=== PATIENT | female | born 1990 | race Caucasian/White ===

== ENCOUNTER 2018-01-30 19:15 | Emergency (ER) | payer MEDICAID, OTHER ==
[2018-01-30] MEDS ORDERED: KETOROLAC 60 MG/2 ML VIAL IVP STA (19:52)
--- NOTE | 2018-01-30 19:53 | ED Physician Documentation ---
PD HPI CHEST PAIN - Stated complaint Stated Complaint: CHEST PX/NAVARRO - Chief complaint Chief Complaint: Cardiac - History obtained from History obtained from: Patient, Family - History of Present Illness Timing - onset: How many days ago (4) Timing - onset during: Rest Timing - duration: Days (4) Timing - details: Waxing and waning Pain level max: 8 Pain level now: 4 Quality: Sharp, Pain Location: Other (anterior chest) Radiation: Other (occasionally radiates to the back) Improved by: Rest Worsened by: Inspiration, Eating, Movement, Palpation Associated symptoms: No: Shortness of air, Diaphoresis, Nausea, Vomiting, Feeling faint / dizzy, General Weakness, Palpitations, Cough Similar symptoms before: Has not had sx before Recently seen: Not recently seen - Additional information Additional information: No recent travel. No surgery. No immobilization. No family history of blood clots or personal history of blood clots. Review of Systems Ten Systems: 10 systems reviewed and negative Constitutional: denies: Fever, Chills Eyes: denies: Decreased vision Ears: denies: Ear pain Nose: denies: Rhinorrhea / runny nose, Congestion Throat: denies: Sore throat Cardiac: denies: Palpitations, Calf pain Respiratory: denies: Cough GI: denies: Abdominal Pain, Nausea, Vomiting, Diarrhea : denies: Dysuria, Frequency, Hesitancy, Now EGA Skin: denies: Rash Musculoskeletal: denies: Neck pain, Back pain Neurologic: denies: Focal weakness, Numbness, Headache PD PAST MEDICAL HISTORY - Past Medical History Cardiovascular: Hypertension - Past Surgical History Past Surgical History: No - Present Medications Home Medications: Ambulatory Orders Medication Instructions Recorded Confirmed Famotidine [Pepcid] 20 mg PO BID #30 tablet 04/02/17 Hydrochlorothiazide 12.5 mg PO DAILY 04/02/17 04/02/17 Hydrocodone/Acetaminophen 1 - 2 each PO Q6H PRN #14 tablet 04/02/17 [Hydrocodon-Acetaminophen 5-325] Omeprazole [PriLOSEC] 20 mg PO DAILY #30 capsule 04/02/17 Sucralfate [Carafate] 1 gm PO ACHS #60 tablet 04/02/17 Famotidine [Pepcid] 20 mg PO BID #30 tablet 01/30/18 Omeprazole [PriLOSEC] 20 mg PO DAILY #30 capsule 01/30/18 - Allergies Allergies/Adverse Reactions: Allergies Allergy/AdvReac Type Severity Reaction Status Date / Time amoxicillin AdvReac Unknown Verified 01/30/18 19:23 - Social History Does the pt smoke?: No Smoking Status: Never smoker Does the pt drink ETOH?: No Does the pt have substance abuse?: No - Immunizations Immunizations are current?: Yes PD ED PE NORMAL - Vitals Vital signs reviewed: Yes - General General: Alert and oriented X 3, No acute distress, Well developed/nourished - HEENT HEENT: PERRL, Moist mucous membranes - Neck Neck: Supple, no meningeal sign - Cardiac Cardiac: RRR, Strong equal pulses - Respiratory Respiratory: No respiratory distress, Clear bilaterally, Other (Tender to palpation across the anterior chest wall, reproducing her pain.) - Abdomen Abdomen: Soft, Non tender, Non distended - Derm Derm: Warm and dry, No rash - Extremities Extremities: No edema, No calf tenderness / cord - Neuro Neuro: Alert and oriented X 3 - Psych Psych: Normal mood, Normal affect Results - Vitals Vitals: Vital Signs - 24 hr 01/30/18 01/30/18 01/30/18 19:21 19:48 21:29 Temperature 36.7 C Heart Rate 85 83 75 Respiratory 16 16 16 Rate Blood Pressure 161/116 H 143/99 H 123/107 H O2 Saturation 95 100 98 Oxygen O2 Source Room air - EKG (time done) 1922 Rate: Rate (enter#) (80) Rhythm: NSR [place]: Normal Intervals: Normal [place] QRS: Normal Ischemia: Normal ST segments Computer interpretation: Agree with computer - Labs Labs: Laboratory Tests 01/30/18 01/30/18 01/30/18 19:43 19:43 19:43 WBC 7.9 RBC 4.45 Hgb 13.3 Hct 38.4 MCV 86.2 MCH 29.9 MCHC 34.7 RDW 12.3 Plt Count 246 MPV 8.4 Neut # 5.3 Lymph # 2.0 [place] # 0.5 Eos # 0.1 Baso # 0.0 Absolute Nucleated RBC 0.00 Nucleated RBC % 0.0 D-Dimer < 200.0 L Sodium 135 Potassium 3.8 Chloride 103 Carbon Dioxide 24 Anion Gap 8.0 BUN 7 Creatinine 0.7 Estimated GFR (MDRD) 100 Glucose 95 Calcium 8.9 Total Bilirubin 0.4 AST 23 ALT 18 Alkaline Phosphatase 70 Troponin I Total Protein 7.4 Albumin 4.3 Globulin 3.1 Albumin/Globulin Ratio 1.4 Lipase 29 01/30/18 19:43 WBC RBC Hgb Hct MCV MCH MCHC RDW Plt Count MPV Neut # Lymph # [place] # Eos # Baso # Absolute Nucleated RBC Nucleated RBC % D-Dimer Sodium Potassium Chloride Carbon Dioxide Anion Gap BUN Creatinine Estimated GFR (MDRD) Glucose Calcium Total Bilirubin AST ALT Alkaline Phosphatase Troponin I < 0.04 Total Protein Albumin Globulin Albumin/Globulin Ratio Lipase - Rads (name of study) cxr Radiology: Prelim report reviewed, EMP read contemporaneously, See rad report ( normal) PD MEDICAL DECISION MAKING - ED course Complexity details: reviewed results, re-evaluated patient, considered differential (No ST elevation [place], no aortic dissection, no PE, no tension pneumothorax, no aortic aneurysm), d/w patient, d/w family ED course: Patient is a 27-year-old female who presents to the emergency department with either costochondritis or gastritis. She felt slightly better after Toradol, but much improved after GI cocktail. Will place on H2 eduardo and PPI for home and have her follow-up with her doctor. Counseled regarding dietary changes. Will use Tylenol as needed for the chest wall pain. No evidence of pulmonary embolus. Negative d-dimer. Patient counseled regarding signs and symptoms for which I believe and urgent re-evaluation would be necessary. Patient with good understanding of and agreement to plan and is comfortable going home at this time This document was made in part using voice recognition software. While efforts are made to proofread this document, sound alike and grammatical errors may occur. Departure - Departure Disposition: 01 Home, Self Care Clinical Impression: Chest wall pain Gastritis Qualifiers: Gastritis type: alcoholic Chronicity: acute Gastritis bleeding: without bleeding Qualified Code(s): K29.20 - Alcoholic gastritis without bleeding Condition: Good Instructions: ED Chest Pain Costochondritis, ED PUD Vs Gastritis Follow-Up: your,doctor in 1week [Other] Prescriptions: Famotidine [Pepcid] 20 mg PO BID #30 tablet Omeprazole [PriLOSEC] 20 mg PO DAILY #30 capsule Comments: This should improve over the next few days. Avoid spicy foods, fried foods, fatty foods. Also avoid caffeine, alcohol, anti-inflammatory such as Motrin and Aleve. Return if you worsen Discharge Date/Time: 01/30/18 21:38
[2018-01-30 19:59] LABS: BASOPHILS % (AUTO) 0.6 %; EOSINOPHILS # (AUTO) 0.1 10^3/uL (0.0-0.7); EOSINOPHILS % (AUTO) 1.3 %; HGB - HEMOGLOBIN 13.3 g/dL (12.0-16.0); LYMPHOCYTES % (AUTO) 24.9 %; MEAN CORPUSCULAR HEMOGLOBIN 29.9 pg (27.0-31.0); MEAN CORPUSCULAR HGB CONC 34.7 g/dL (32.0-36.0); MEAN CORPUSCULAR VOLUME 86.2 fL (81.0-99.0); MEAN PLATELET VOLUME 8.4 fL (7.9-10.8); MONOCYTES # (AUTO) 0.5 10^3/uL (0.0-1.0); MONOCYTES % (AUTO) 6.4 %; NEUTROPHILS # (AUTO) 5.3 10^3/uL (1.5-6.6); NEUTROPHILS % (AUTO) 66.8 %; PLT - PLATELET COUNT 246 10^3/uL (130-450); RED BLOOD COUNT 4.45 10^6/uL (4.20-5.40); RED CELL DISTRIBUTION WIDTH 12.3 % (12.0-15.0); WHITE BLOOD COUNT 7.9 x10^3/uL (4.8-10.8)
[2018-01-30 20:09] LABS: ALBUMIN 4.3 g/dL (3.2-5.5); ALBUMIN/GLOBULIN RATIO 1.4 (1.0-2.2); BILIRUBIN,TOTAL 0.4 mg/dL (0.2-1.0); CALCIUM 8.9 mg/dL (8.5-10.3); CREATININE 0.7 mg/dL (0.4-1.0); TOTAL PROTEIN 7.4 g/dL (6.7-8.2)
--- NOTE | 2018-01-30 20:13 | XRAY Report ---
EXAM: CHEST RADIOGRAPHY EXAM DATE: 01/30/2018 08:04 PM. CLINICAL HISTORY: Chest pain. COMPARISON: 04/01/2017. TECHNIQUE: 1 view. FINDINGS: Lungs/Pleura: No focal opacities evident. No pleural effusion. No pneumothorax. Mediastinum: Within exam limitations, the cardiomediastinal contour is normal. Other: None. IMPRESSION: Negative chest. [facility] Referring Provider Line: [phone] SITE ID: [id number]
--- NOTE | 2018-01-30 20:13 | XRAY Preliminary Report ---
Exam: XR CHEST 1 VIEW X-RAY IMPRESSION: Negative chest. [facility] SITE ID: [id number]
[2018-01-30] MEDS ORDERED: PHENobarb/HYOSCY/ATROPINE/SCOP 5 ML UDC PO STA (20:57)
[2018-01-30] MEDS ORDERED: SUCRALFATE 1 GM/10 ML UDC PO STA (20:57)
[2018-01-30] MEDS ORDERED: LIDOCAINE VISCOUS 2% 15 ML UDC MM STA (20:57)
[2018-01-30] MEDS ORDERED: FAMOTIDINE 20 MG TABLET PO STA (20:57)
[2018-01-30] MEDS ORDERED: MAG HYDROX/AL HYDROX/SIMETH 30 ML UDC PO STA (20:57)
[2018-01-30 21:30] VITALS: BP 123/107
== END 2018-01-30 21:38 | disposition home or self-care (01) ==
LOC: ED 19:15
DX: R07.89 Other chest pain (principal); K29.20 Alcoholic gastritis without bleeding; I10 Essential (primary) hypertension
CPT/HCPCS: 36415; 71045; 80053; 83690; 84484; 85025; 85379; 96374; 99284; A9270

== ENCOUNTER 2018-03-28 12:47 | Emergency (ER) | payer OTHER ==
[2018-03-28] MEDS ORDERED: SODIUM CHLORIDE 0.9% 1,000 ML IV ONE (13:38)
[2018-03-28] MEDS ORDERED: ONDANSETRON 4 MG/2 ML VIAL IVP STA (13:38)
[2018-03-28] MEDS ORDERED: KETOROLAC 60 MG/2 ML VIAL IVP STA (13:38)
[2018-03-28] MEDS ORDERED: OXYMETAZOLINE NASAL SPRAY NAS STA (13:39)
--- NOTE | 2018-03-28 14:05 | ED Physician Documentation ---
History of Present Illness - Stated complaint Stated Complaint: N/V HEADACHE - Chief complaint Chief Complaint: General - Additonal information Additional information: hx from pt 27 f sick for nearly a week sinus pressure sore throat hoarse voice poor PO intake and NAVARRO getting worse NV too no diarrhea subj fever no trauma or CO exposure not better with sudafed able to flex neck Review of Systems Constitutional: reports: Fever Nose: reports: Congestion, Sinus pressure / pain Throat: reports: Sore throat GI: reports: Nausea, Vomiting. denies: Diarrhea : denies: Now EGA Neurologic: reports: Headache Endocrine: denies: Easy bruising / bleeding Immunocompromised: denies: Immunocompromised PD PAST MEDICAL HISTORY - Past Medical History Past Medical History: Yes Cardiovascular: Hypertension - Past Surgical History Past Surgical History: No - Present Medications Home Medications: Ambulatory Orders Medication Instructions Recorded Confirmed Azithromycin [Zithromax] 250 mg PO DAILY #6 tablet 03/28/18 Fluticasone [Flonase] 1 sprays ARTUR BID PRN #1 bottle 03/28/18 - Allergies Allergies/Adverse Reactions: Allergies Allergy/AdvReac Type Severity Reaction Status Date / Time amoxicillin AdvReac Unknown Verified 01/30/18 19:23 - Social History Does the pt smoke?: No Smoking Status: Never smoker Does the pt drink ETOH?: No Does the pt have substance abuse?: No - Immunizations Immunizations are current?: Yes - POLST Patient has POLST: No PD ED PE NORMAL - Vitals Vital signs reviewed: Yes - HEENT HEENT: PERRL, Ears normal, Other (some maxillary sinus swelling R > L and TTP ) . No: Moist mucous membranes (dry), Pharynx benign (erythema) - Neck Neck: Supple, no meningeal sign - Cardiac Cardiac: RRR - Respiratory Respiratory: No respiratory distress, Clear bilaterally - Abdomen Abdomen: Soft, Non tender - Derm Derm: Normal color - Neuro Neuro: Alert and oriented X 3, No motor deficit, Normal speech Eye Opening: Spontaneous Motor: Localizes to Pain Verbal: Oriented GCS Score: 14 Results - Vitals Vitals: Vital Signs - 24 hr 03/28/18 03/28/18 03/28/18 12:55 14:26 15:37 Temperature 36.1 C L Heart Rate 93 79 56 L Respiratory 16 14 14 Rate Blood Pressure 153/102 H 166/119 H 149/108 H O2 Saturation 98 100 99 Oxygen O2 Source Room air - Labs Labs: Laboratory Tests 03/28/18 13:15 Group A Strep Rapid Negative PD MEDICAL DECISION MAKING - ED course ED course: strep neg pt feeling much better after toradol zofran and IVF and afrin still with sig sinus pressure given sx for a week, maxillary swelling, failed symptomatic tx with sudafed, will rx ab BP still high pt with hx HTN has meds at home and will take them - Sepsis Event Vital Signs: Vital Signs - 24 hr 03/28/18 03/28/18 03/28/18 12:55 14:26 15:37 Temperature 36.1 C L Heart Rate 93 79 56 L Respiratory 16 14 14 Rate Blood Pressure 153/102 H 166/119 H 149/108 H O2 Saturation 98 100 99 Oxygen O2 Source Room air Departure - Departure Disposition: 01 Home, Self Care Clinical Impression: Dehydration Sinusitis Qualifiers: Sinusitis location: maxillary Chronicity: acute Recurrence: non-recurrent Qualified Code(s): J01.00 - Acute maxillary sinusitis, unspecified Condition: Good Instructions: ED Dehydration, ED Sinusitis Abx Tx Prescriptions: Azithromycin [Zithromax] 250 mg PO DAILY #6 tablet Fluticasone [Flonase] 1 sprays ARTUR BID PRN #1 bottle PRN Reason: allergies Comments: Your strep test was negative but your maxillary sinuses were swollen and tender despite home treatment with sudafed So I have prescribed antibiotics and a nasal decongestant called flonase. Also please consider trying a sinus irrigation system such as a preston pot to clean out the sinuses Forms: Activity restrictions
[2018-03-28 15:38] VITALS: BP 149/108
== END 2018-03-28 15:44 | disposition home or self-care (01) ==
LOC: ED 12:47
DX: E86.0 Dehydration (principal); J01.00 Acute maxillary sinusitis, unspecified; I10 Essential (primary) hypertension
CPT/HCPCS: 36415; 87070; 87430; 99283; A9270

== ENCOUNTER 2018-05-21 11:01 | Outpatient (CLI) | payer OTHER | END 2018-05-21 11:02 | disposition home or self-care (01) | LOC: LAB 11:01 | PROVIDERS: ATTEND Obstetrics & Gynecology | DX: Z32.01 Encounter for pregnancy test, result positive (principal) | CPT/HCPCS: 36415; 84702 ==

== ENCOUNTER 2018-05-23 16:08 | Outpatient (CLI) | payer OTHER | END 2018-05-23 16:09 | disposition home or self-care (01) | LOC: LAB 16:08 | PROVIDERS: ATTEND Obstetrics & Gynecology | DX: Z32.01 Encounter for pregnancy test, result positive (principal) | CPT/HCPCS: 84702 ==

== ENCOUNTER 2018-06-08 21:02 | Emergency (ER) | payer OTHER, MEDICAID ==
[2018-06-08 21:29] LABS: BILIRUBIN,URINE NEGATIVE (NEGATIVE); GLUCOSE, URINE (UA) NEGATIVE (NEGATIVE); KETONES,URINE (UA) NEGATIVE (NEGATIVE); LEUKOCYTE ESTERASE, URINE NEGATIVE (NEGATIVE); NITRITE,URINE NEGATIVE (NEGATIVE); OCCULT BLOOD,URINE TRACE-INTA (NEGATIVE); PH,URINE 6.5 PH (5.0-7.5); PROTEIN,URINE NEGATIVE (NEGATIVE); UROBILINOGEN,URINE 0.2 (NORMAL) E.U./dL (NORMAL)
[2018-06-08 21:32] LABS: CLARITY,URINE CLEAR (CLEAR); HCG UR QUAL POSITIVE
--- NOTE | 2018-06-08 21:38 | ED Physician Documentation ---
History of Present Illness - Stated complaint Stated Complaint: DIZZY/6WK OB - Chief complaint Chief Complaint: Neuro - History obtained from History obtained from: Patient - History of Present Illness Timing: Other ( at 6 weeks gestation presents with a few days of intermittent left flank pain not associated with cramping, or bleeding. 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 CIGAR MAKER: None : None HEENT: None Psych: None Musculoskeletal: None Derm: None - Past Surgical History Past Surgical History: No - Present Medications Home Medications: Ambulatory Orders Medication Instructions Recorded Confirmed Labetalol [Trandate] 100 mg PO 06/08/18 06/08/18 Metoclopramide [Reglan] 10 mg PO Q6H 06/08/18 06/08/18 Mometasone Furoate [Nasonex] 17 gm NS BID #1 spray.pump 06/08/18 - Allergies Allergies/Adverse Reactions: Allergies Allergy/AdvReac Type Severity Reaction Status Date / Time amoxicillin AdvReac Unknown Verified 06/08/18 21:13 - Social History Does the pt smoke?: No Smoking Status: Never smoker Does the pt drink ETOH?: No Does the pt have substance abuse?: No - Immunizations Immunizations are current?: Yes - POLST Patient has POLST: No PD ED PE NORMAL - Vitals Vital signs reviewed: Yes - General General: Alert and oriented X 3, No acute distress - HEENT HEENT: PERRL, EOMI, Ears normal, Pharynx benign - Neck Neck: Supple, no meningeal sign, No bony TTP - Abdomen Abdomen: Normal bowel sounds, Soft, Non tender - Female Female : Other (I am unable to visualize an intrauterine on bedside ultrasound, her bladder is completely empty.) - Back Back: No CVA TTP, No spinal TTP - Neuro Neuro: Alert and oriented X 3, Normal speech - Psych Psych: Normal mood, Normal affect Results - Vitals Vitals: Vital Signs - 24 hr 06/08/18 06/08/18 21:07 22:40 Temperature 36.4 C L Heart Rate 90 72 Respiratory 14 18 Rate Blood Pressure 122/91 H 132/90 H O2 Saturation 100 100 Oxygen O2 Source Room air - Labs Labs: Laboratory Tests 06/08/18 06/08/18 06/08/18 21:18 21:35 21:35 WBC 6.1 RBC 3.68 L Hgb 11.7 L Hct 32.7 L MCV 89.1 MCH 31.7 H MCHC 35.6 RDW 12.9 Plt Count 227 MPV 8.3 Neut # (Auto) 3.8 Lymph # (Auto) 1.7 [place] # (Auto) 0.5 Eos # (Auto) 0.1 Baso # (Auto) 0.0 Absolute Nucleated RBC 0.00 Nucleated RBC % 0.0 Sodium 135 Potassium 3.2 L Chloride 104 Carbon Dioxide 25 Anion Gap 6.0 BUN < 5 L Creatinine 0.5 Estimated GFR (MDRD) 147 Glucose 91 Calcium 8.8 Total Bilirubin 0.4 AST 17 ALT 16 Alkaline Phosphatase 67 Total Protein 6.8 Albumin 3.9 Globulin 2.9 Albumin/Globulin Ratio 1.3 Lipase 28 HCG, Quant Urine Color LT. YELLOW Urine Clarity CLEAR Urine pH 6.5 Ur Specific Bond <=1.005 Urine Protein NEGATIVE Urine Glucose (UA) NEGATIVE Urine Ketones NEGATIVE Urine Occult Blood TRACE-INTA Urine Nitrite NEGATIVE Urine Bilirubin NEGATIVE Urine Urobilinogen 0.2 (NORMAL) Ur Leukocyte Esterase NEGATIVE Ur Microscopic Review NOT INDICATED Urine Culture Comments NOT INDICATED Urine HCG, Qual POSITIVE 06/08/18 21:35 WBC RBC Hgb Hct MCV MCH MCHC RDW Plt Count MPV Neut # (Auto) Lymph # (Auto) [place] # (Auto) Eos # (Auto) Baso # (Auto) Absolute Nucleated RBC Nucleated RBC % Sodium Potassium Chloride Carbon Dioxide Anion Gap BUN Creatinine Estimated GFR (MDRD) Glucose Calcium Total Bilirubin AST ALT Alkaline Phosphatase Total Protein Albumin Globulin Albumin/Globulin Ratio Lipase HCG, Quant 851109.00 Urine Color Urine Clarity Urine pH Ur Specific Bond Urine Protein Urine Glucose (UA) Urine Ketones Urine Occult Blood Urine Nitrite Urine Bilirubin Urine Urobilinogen Ur Leukocyte Esterase Ur Microscopic Review Urine Culture Comments Urine HCG, Qual - Rads (name of study) OB and L retroperitoneal sono Radiology: EMP read contemporaneously (Nomral IUP c/w dates and nonobstructing L renal stone.), See rad report PD MEDICAL DECISION MAKING - Sepsis Event Vital Signs: Vital Signs - 24 hr 06/08/18 06/08/18 21:07 22:40 Temperature 36.4 C L Heart Rate 90 72 Respiratory 14 18 Rate Blood Pressure 122/91 H 132/90 H O2 Saturation 100 100 Oxygen O2 Source Room air Departure - Departure Disposition: 01 Home, Self Care Clinical Impression: Acute flank pain Qualifiers: Weeks of gestation: less than 8 weeks Qualified Code(s): Z3A.01 - Less than 8 weeks gestation of Sinusitis Qualifiers: Sinusitis location: frontal Chronicity: acute Recurrence: recurrent Qualified Code(s): J01.11 - Acute recurrent frontal sinusitis Pelvic pain affecting Qualifiers: Trimester: first trimester Qualified Code(s): O26.891 - Other specified related conditions, first trimester Condition: Good Record reviewed to determine appropriate education?: Yes Instructions: ED Preg Established Normal Sxs Prescriptions: Mometasone Furoate [Nasonex] 17 gm NS BID #1 spray.pump Comments: Call your doctor to arrange a follow-up appointment, make the next available appointment. In the interim, return anytime if worse or if new symptoms develop. Discharge Date/Time: 06/08/18 23:24
[2018-06-08 21:54] LABS: BASOPHILS % (AUTO) 0.6 %; EOSINOPHILS # (AUTO) 0.1 10^3/uL (0.0-0.7); EOSINOPHILS % (AUTO) 1.6 %; HGB - HEMOGLOBIN 11.7 g/dL (12.0-16.0); LYMPHOCYTES # (AUTO) 1.7 10^3/uL (1.5-3.5); LYMPHOCYTES % (AUTO) 28.5 %; MEAN CORPUSCULAR HEMOGLOBIN 31.7 pg (27.0-31.0); MEAN CORPUSCULAR HGB CONC 35.6 g/dL (32.0-36.0); MEAN CORPUSCULAR VOLUME 89.1 fL (81.0-99.0); MEAN PLATELET VOLUME 8.3 fL (7.9-10.8); MONOCYTES # (AUTO) 0.5 10^3/uL (0.0-1.0); MONOCYTES % (AUTO) 7.7 %; NEUTROPHILS # (AUTO) 3.8 10^3/uL (1.5-6.6); NEUTROPHILS % (AUTO) 61.6 %; PLT - PLATELET COUNT 227 10^3/uL (130-450); RED BLOOD COUNT 3.68 10^6/uL (4.20-5.40); RED CELL DISTRIBUTION WIDTH 12.9 % (12.0-15.0); WHITE BLOOD COUNT 6.1 x10^3/uL (4.8-10.8)
[2018-06-08 22:11] LABS: ALBUMIN 3.9 g/dL (3.2-5.5); ALBUMIN/GLOBULIN RATIO 1.3 (1.0-2.2); ALKALINE PHOSPHATASE 67 IU/L (42-121); ALT ALANINE AMINOTRANSFERASE 16 IU/L (10-60); AST ASPARTATE AMINOTRANSFERASE 17 IU/L (10-42); BILIRUBIN,TOTAL 0.4 mg/dL (0.2-1.0); BUN - BLOOD UREA NITROGEN < 5 mg/dL (6-20); CALCIUM 8.8 mg/dL (8.5-10.3); CARBON DIOXIDE - CO2 25 mmol/L (21-32); CHLORIDE 104 mmol/L (101-111); CREATININE 0.5 mg/dL (0.4-1.0); GFR - MDRD 147 (>89); GLUCOSE 91 mg/dL (70-100); LIPASE 28 U/L (22-51); SODIUM 135 mmol/L (135-145); TOTAL PROTEIN 6.8 g/dL (6.7-8.2)
[2018-06-08 22:42] VITALS: BP 132/90
--- NOTE | 2018-06-08 23:21 | Ultrasound Report ---
Reason: Pelvic and L flank pain, 6w preg Procedure Date: 06/08/2018 Accession Number: [id number] / [id number] Procedure: US - OB Transvaginal CPT Code: FULL RESULT: EXAM: FIRST TRIMESTER OBSTETRIC ULTRASOUND (Less than 11 weeks) EXAM DATE: 06/08/2018 09:56 PM. CLINICAL HISTORY: Pelvic and L flank pain, 6w preg. LMP: 04/22/2018. COMPARISONS: None. TECHNIQUE: Transabdominal and transvaginal ultrasound examination with static image documentation. CLINICAL DATES: EGA 6 weeks 5 days with SIMON 01/27/2019 based on LMP. ASSESSMENT: Gestational Sac: Single intrauterine. Mean gestational sac diameter: 29.3 mm = 7 weeks 5 days. Embryo: CRL (crown-rump length) 8.4 mm = 6 weeks 6 days. Cardiac activity: 135 beats per minute. Yolk sac: 3 mm. Amniotic fluid: Not accurately assessed at this gestational age. Early placenta: Not visible at this gestational age. Other: Implantation bleed measuring 6 x 5 mm. MATERNAL STRUCTURES: Uterus: Retroverted. Unremarkable. Cervix: Closed. Right Ovary/Adnexa: LUTEUM measuring 1.2 x 1.2 x 1.1 cm. The ovary measures 3.9 x 2.2 x 2.5 cm, volume 11.1 cc. Left Ovary/Adnexa: Unremarkable. The ovary measures 3.4 x 2.2 x 1.2 cm, volume 4.6 cc. Free Fluid: None. Other: None. IMPRESSION: 1. Single viable intrauterine at EGA 6 weeks 6 days with SIMON 01/26/2019 based on crown-rump length, which is concordant with clinical dates. 2. Assigned dating is SIMON 01/27/2019 based on LMP. 3. Ovaries appear normal with corpus luteum on the right. 4. Implantation bleed measuring 6 x 5 mm. [facility]
--- NOTE | 2018-06-08 23:21 | Ultrasound Report ---
Reason: Pelvic and L flank pain, 6w preg Procedure Date: 06/08/2018 Accession Number: [id number] / [id number] Procedure: US - OB First Trimester CPT Code: FULL RESULT: EXAM: FIRST TRIMESTER OBSTETRIC ULTRASOUND (Less than 11 weeks) EXAM DATE: 06/08/2018 09:56 PM. CLINICAL HISTORY: Pelvic and L flank pain, 6w preg. LMP: 04/22/2018. COMPARISONS: None. TECHNIQUE: Transabdominal and transvaginal ultrasound examination with static image documentation. CLINICAL DATES: EGA 6 weeks 5 days with SIMON 01/27/2019 based on LMP. ASSESSMENT: Gestational Sac: Single intrauterine. Mean gestational sac diameter: 29.3 mm = 7 weeks 5 days. Embryo: CRL (crown-rump length) 8.4 mm = 6 weeks 6 days. Cardiac activity: 135 beats per minute. Yolk sac: 3 mm. Amniotic fluid: Not accurately assessed at this gestational age. Early placenta: Not visible at this gestational age. Other: Implantation bleed measuring 6 x 5 mm. MATERNAL STRUCTURES: Uterus: Retroverted. Unremarkable. Cervix: Closed. Right Ovary/Adnexa: LUTEUM measuring 1.2 x 1.2 x 1.1 cm. The ovary measures 3.9 x 2.2 x 2.5 cm, volume 11.1 cc. Left Ovary/Adnexa: Unremarkable. The ovary measures 3.4 x 2.2 x 1.2 cm, volume 4.6 cc. Free Fluid: None. Other: None. IMPRESSION: 1. Single viable intrauterine at EGA 6 weeks 6 days with SIMON 01/26/2019 based on crown-rump length, which is concordant with clinical dates. 2. Assigned dating is SIMON 01/27/2019 based on LMP. 3. Ovaries appear normal with corpus luteum on the right. 4. Implantation bleed measuring 6 x 5 mm. [facility]
--- NOTE | 2018-06-08 23:24 | Ultrasound Report ---
Reason: Pelvic and L flank pain, 6w preg Procedure Date: 06/08/2018 Accession Number: [id number] / [id number] Procedure: US - Retroperitoneal Limited CPT Code: FULL RESULT: EXAM: RENAL ULTRASOUND LIMITED EXAM DATE: 06/08/2018 10:26 PM. CLINICAL HISTORY: Pelvic and L flank pain, 6w preg. COMPARISON: None. TECHNIQUE: Real-time scanning was performed with static images obtained. FINDINGS: Right Kidney: Not imaged. Left Kidney: 10.8 x 4.8 x 4.4 cm. Normal echotexture. No hydronephrosis seen. Nonobstructing lower pole stone measuring 7 mm. Bladder: Not imaged. Other: None. IMPRESSION: 1. Nonobstructing 7 mm left lower pole renal stone. 2. Left kidney is otherwise unremarkable. [facility]
== END 2018-06-08 23:24 | disposition home or self-care (01) ==
LOC: ED 21:02
DX: O99.89 Other specified diseases and conditions complicating pregnancy, childbirth and the puerperium (principal); R10.9 Unspecified abdominal pain; J01.11 Acute recurrent frontal sinusitis; N20.0 Calculus of kidney; I10 Essential (primary) hypertension; Z3A.01 Less than 8 weeks gestation of pregnancy
CPT/HCPCS: 36415; 76775; 76801; 76817; 80053; 81001; 81003; 81025; 83690; 84702; 85025; 87086; 99283

== ENCOUNTER 2018-06-15 08:05 | Outpatient (CLI) | payer OTHER, MEDICAID ==
--- NOTE | 2018-06-15 11:40 | Ultrasound Report ---
Reason: ENCOUNTER FOR TEST, RESULT POSITIVE Procedure Date: 06/15/2018 Accession Number: [id number] / [id number] Procedure: US - OB First Trimester CPT Code: FULL RESULT: EXAM: FIRST TRIMESTER OBSTETRIC ULTRASOUND (Less than 11 weeks) EXAM DATE: 06/15/2018 09:51 AM. CLINICAL HISTORY: Positive test LMP: 12/21/2017. COMPARISONS: OB FIRST TRIMESTER 06/08/2018. TECHNIQUE: Transabdominal and transvaginal ultrasound examination with static image documentation. CLINICAL DATES: EGA 7 weeks 5 days with SIMON 01/27/2019 based on LMP 04/22/2018. EGA 7 weeks 6 days with SIMON 01/26/2019 based on first ultrasound dated 06/08/2018. EGA 7 weeks 6 days with SIMON 01/26/2019 based on current ultrasound. ASSESSMENT: Gestational Sac: Single intrauterine. Normal shape. Embryo: CRL (crown-rump length) 15 mm = 7 weeks 6 days. Cardiac activity: 168 beats per minute. Yolk sac: 5 mm. Amniotic fluid: Not accurately assessed at this gestational age. Early placenta: Not visible at this gestational age. Other: Small hypoechoic collection adjacent to the gestational sac measuring 3.2 x 0.9 x 2.3 cm (3.5 cc), compatible with a perigestational bleed. MATERNAL STRUCTURES: Uterus: Retroverted. Unremarkable. Cervix: Closed. Right Ovary/Adnexa: The ovary measures 3.7 x 1.9 x 2.2 cm, volume 8.0 cc. Contains a 1.2 cm corpus luteum cyst and a 0.8 cm avascular echogenic focus. Left Ovary/Adnexa: The ovary measures 4.7 x 1.6 x 2.4 cm, volume 9.4 cc. Free Fluid: None. Unremarkable. Other: None. IMPRESSION: 1. Single viable intrauterine at EGA 7 weeks 5 days with SIMON 01/27/2019 based on LMP. 2. size is appropriate for assigned dating. 3. Interval increased size of small perigestational bleed. 4. Subcentimeter avascular echogenic focus in the right ovary, which could represent a small dermoid or a calcification. Recommend attention on follow-up exams. [facility]
== END 2018-06-15 08:06 | disposition home or self-care (01) ==
LOC: DI 08:05
PROVIDERS: ATTEND Obstetrics & Gynecology
DX: Z32.01 Encounter for pregnancy test, result positive (principal)
CPT/HCPCS: 76801

== ENCOUNTER 2018-06-22 12:16 | Outpatient (CLI) | payer OTHER, MEDICAID | END 2018-06-22 12:17 | disposition home or self-care (01) | LOC: LAB.R 12:16 | PROVIDERS: ATTEND Obstetrics & Gynecology | DX: Z34.81 Encounter for supervision of other normal pregnancy, first trimester (principal); Z11.3 Encounter for screening for infections with a predominantly sexual mode of transmission | CPT/HCPCS: 87491; 87591 ==

== ENCOUNTER 2018-06-22 12:28 | Outpatient (CLI) | payer OTHER, MEDICAID ==
[2018-06-22 13:08] LABS: BASOPHILS % (AUTO) 0.3 %; EOSINOPHILS % (AUTO) 0.7 %; LYMPHOCYTES # (AUTO) 1.3 10^3/uL (1.5-3.5); LYMPHOCYTES % (AUTO) 20.5 %; MEAN CORPUSCULAR HEMOGLOBIN 31.5 pg (27.0-31.0); MEAN CORPUSCULAR HGB CONC 36.1 g/dL (32.0-36.0); MEAN CORPUSCULAR VOLUME 87.3 fL (81.0-99.0); MEAN PLATELET VOLUME 8.3 fL (7.9-10.8); MONOCYTES # (AUTO) 0.4 10^3/uL (0.0-1.0); NEUTROPHILS # (AUTO) 4.7 10^3/uL (1.5-6.6); NEUTROPHILS % (AUTO) 72.5 %; PLT - PLATELET COUNT 247 10^3/uL (130-450); RED BLOOD COUNT 3.82 10^6/uL (4.20-5.40); RED CELL DISTRIBUTION WIDTH 12.5 % (12.0-15.0); WHITE BLOOD COUNT 6.5 x10^3/uL (4.8-10.8)
[2018-06-22 13:47] LABS: BILIRUBIN,URINE NEGATIVE (NEGATIVE); GLUCOSE, URINE (UA) NEGATIVE (NEGATIVE); KETONES,URINE (UA) NEGATIVE (NEGATIVE); LEUKOCYTE ESTERASE, URINE SMALL (NEGATIVE); NITRITE,URINE NEGATIVE (NEGATIVE); OCCULT BLOOD,URINE TRACE-INTA (NEGATIVE); PH,URINE 6.5 PH (5.0-7.5); PROTEIN,URINE NEGATIVE (NEGATIVE); UROBILINOGEN,URINE 0.2 (NORMAL) E.U./dL (NORMAL)
[2018-06-22 13:53] LABS: CLARITY,URINE HAZY (CLEAR)
[2018-06-22 13:59] LABS: BACTERIA,URINE Moderate /HPF (None Seen); MUCUS,URINE Few Strands; RBC,URINE 0-5 /HPF (0-5); SQUAMOUS EPITHELIAL CELL,UR MANY Squamous (<= Few)
[2018-06-23 14:01] LABS: HEPATITIS B SURFACE ANTIGEN NON-REACTIVE (NON-REACTIVE)
[2018-06-23 14:57] LABS: HIV AG/AB 4TH GEN NON-REACTIVE (NON-REACTIVE)
== END 2018-06-22 12:29 | disposition home or self-care (01) ==
LOC: LAB 12:28
PROVIDERS: ATTEND Obstetrics & Gynecology
DX: Z34.81 Encounter for supervision of other normal pregnancy, first trimester (principal); Z11.3 Encounter for screening for infections with a predominantly sexual mode of transmission
CPT/HCPCS: 36415; 81001; 81599; 85025; 86592; 86762; 86850; 86900; 86901; 87340; 87389; 87491; 87591

== ENCOUNTER 2018-06-25 15:09 | Outpatient (CLI) | payer OTHER, MEDICAID ==
[2018-06-25 15:55] LABS: ALBUMIN/GLOBULIN RATIO 1.2 (1.0-2.2); BILIRUBIN,TOTAL 0.4 mg/dL (0.2-1.0); CALCIUM 9.1 mg/dL (8.5-10.3); CREATININE 0.5 mg/dL (0.4-1.0); TOTAL PROTEIN 7.3 g/dL (6.7-8.2)
[2018-06-25 16:05] LABS: CREATININE,URINE 48.6 mg/dL; PROTEIN/CREATININE RATIO,URINE 0.1 (<=0.2)
== END 2018-06-25 15:10 | disposition home or self-care (01) ==
LOC: LAB 15:09
PROVIDERS: ATTEND Obstetrics & Gynecology
DX: Z34.81 Encounter for supervision of other normal pregnancy, first trimester (principal)
CPT/HCPCS: 36415; 80053; 82570; 84156

== ENCOUNTER 2018-07-02 17:11 | Emergency (ER) | payer OTHER, MEDICAID ==
[2018-07-02 17:23] VITALS: BP 127/90
[2018-07-02 17:51] LABS: BASOPHILS % (AUTO) 0.5 %; EOSINOPHILS # (AUTO) 0.1 10^3/uL (0.0-0.7); EOSINOPHILS % (AUTO) 1.5 %; HGB - HEMOGLOBIN 12.5 g/dL (12.0-16.0); LYMPHOCYTES # (AUTO) 1.8 10^3/uL (1.5-3.5); LYMPHOCYTES % (AUTO) 22.8 %; MEAN CORPUSCULAR HEMOGLOBIN 31.1 pg (27.0-31.0); MEAN CORPUSCULAR HGB CONC 35.5 g/dL (32.0-36.0); MEAN CORPUSCULAR VOLUME 87.6 fL (81.0-99.0); MEAN PLATELET VOLUME 7.8 fL (7.9-10.8); MONOCYTES # (AUTO) 0.5 10^3/uL (0.0-1.0); MONOCYTES % (AUTO) 6.4 %; NEUTROPHILS # (AUTO) 5.4 10^3/uL (1.5-6.6); NEUTROPHILS % (AUTO) 68.8 %; PLT - PLATELET COUNT 277 10^3/uL (130-450); RED BLOOD COUNT 4.02 10^6/uL (4.20-5.40); RED CELL DISTRIBUTION WIDTH 12.8 % (12.0-15.0); WHITE BLOOD COUNT 7.8 x10^3/uL (4.8-10.8)
[2018-07-02 18:14] LABS: ALBUMIN 3.9 g/dL (3.2-5.5); ALBUMIN/GLOBULIN RATIO 1.1 (1.0-2.2); BILIRUBIN,TOTAL 0.3 mg/dL (0.2-1.0); CALCIUM 9.9 mg/dL (8.5-10.3); CREATININE 0.5 mg/dL (0.4-1.0); TOTAL PROTEIN 7.4 g/dL (6.7-8.2)
--- NOTE | 2018-07-02 18:20 | ED Physician Documentation ---
PD HPI ABD PAIN - Stated complaint Stated Complaint: COUGHING BLOOD/10WK PREG - Chief complaint Chief Complaint: Abd Pain - History obtained from History obtained from: Patient - History of Present Illness Timing - onset: Today ( at 10 weeks gestation. She said a couple of days of mild lower abdominal cramping not associated with bleeding or fluid loss or discharge. Today she had a single episode of hematemesis today, not bloody cough as per the triage note/check and complaint. This was after a nosebleed on the left which has already resolved. She denies upper abdominal pain. She has had no further emesis since this morning. 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 HEENT: None Psych: None Musculoskeletal: None Derm: None - Past Surgical History Past Surgical History: No - Present Medications Home Medications: Ambulatory Orders Medication Instructions Recorded Confirmed Labetalol [Trandate] 100 mg PO 06/08/18 06/08/18 Vitamin [Trinatal Rx 1] 07/02/18 - Allergies Allergies/Adverse Reactions: Allergies Allergy/AdvReac Type Severity Reaction Status Date / Time amoxicillin AdvReac Unknown Verified 07/02/18 17:23 - Social History Does the pt smoke?: No Smoking Status: Never smoker Does the pt drink ETOH?: No Does the pt have substance abuse?: No - Immunizations Immunizations are current?: Yes - POLST Patient has POLST: No PD ED PE NORMAL - Vitals Vital signs reviewed: Yes - General General: Alert and oriented X 3, No acute distress - HEENT HEENT: Pharynx benign, Other (There is an abraded/fresh area on the left Kiesselbach's plexus with evidence of previous recent bleeding but no active bleeding.) - Cardiac Cardiac: RRR, No murmur - Respiratory Respiratory: No respiratory distress, Clear bilaterally - Abdomen Abdomen: Normal bowel sounds, Soft, Non tender - Female Female : Other (Transabdominal bedside ultrasound shows single live intrauterine with heart rate of 167.) - Neuro Neuro: Alert and oriented X 3, Normal speech Results - Vitals Vitals: Vital Signs - 24 hr 07/02/18 17:16 Temperature 37.2 C Heart Rate 90 Respiratory 16 Rate Blood Pressure 127/90 H O2 Saturation 100 Oxygen O2 Source Room air - Labs Labs: Laboratory Tests 07/02/18 07/02/18 07/02/18 17:46 17:46 17:46 WBC 7.8 RBC 4.02 L Hgb 12.5 Hct 35.2 L MCV 87.6 MCH 31.1 H MCHC 35.5 RDW 12.8 Plt Count 277 MPV 7.8 L Neut # (Auto) 5.4 Lymph # (Auto) 1.8 [place] # (Auto) 0.5 Eos # (Auto) 0.1 Baso # (Auto) 0.0 Absolute Nucleated RBC 0.00 Nucleated RBC % 0.0 PT 11.7 INR 1.0 Sodium 135 Potassium 3.6 Chloride 101 Carbon Dioxide 25 Anion Gap 9.0 BUN 9 Creatinine 0.5 Estimated GFR (MDRD) 147 Glucose 101 H Calcium 9.9 Total Bilirubin 0.3 AST 16 ALT 11 Alkaline Phosphatase 68 Total Protein 7.4 Albumin 3.9 Globulin 3.5 Albumin/Globulin Ratio 1.1 Lipase 33 Urine Color Urine Clarity Urine pH Ur Specific [place] Urine Protein Urine Glucose (UA) Urine Ketones Urine Occult Blood Urine Nitrite Urine Bilirubin Urine Urobilinogen Ur Leukocyte Esterase Ur Microscopic Review Urine Culture Comments 07/02/18 18:17 WBC RBC Hgb Hct MCV MCH MCHC RDW Plt Count MPV Neut # (Auto) Lymph # (Auto) [place] # (Auto) Eos # (Auto) Baso # (Auto) Absolute Nucleated RBC Nucleated RBC % PT INR Sodium Potassium Chloride Carbon Dioxide Anion Gap BUN Creatinine Estimated GFR (MDRD) Glucose Calcium Total Bilirubin AST ALT Alkaline Phosphatase Total Protein Albumin Globulin Albumin/Globulin Ratio Lipase Urine Color YELLOW Urine Clarity CLEAR Urine pH 7.5 Ur Specific [place] 1.010 Urine Protein NEGATIVE Urine Glucose (UA) NEGATIVE Urine Ketones NEGATIVE Urine Occult Blood NEGATIVE Urine Nitrite NEGATIVE Urine Bilirubin NEGATIVE Urine Urobilinogen 0.2 (NORMAL) Ur Leukocyte Esterase NEGATIVE Ur Microscopic Review NOT INDICATED Urine Culture Comments NOT INDICATED PD MEDICAL DECISION MAKING - ED course ED course: She had a single episode of hematemesis after epistaxis today. Suspect this was swallowed epistaxis. She has a benign exam and blood work. Ultrasound bedside shows single live intrauterine . - Sepsis Event Vital Signs: Vital Signs - 24 hr 07/02/18 17:16 Temperature 37.2 C Heart Rate 90 Respiratory 16 Rate Blood Pressure 127/90 H O2 Saturation 100 Oxygen O2 Source Room air Departure - Departure Disposition: 01 Home, Self Care Clinical Impression: Epistaxis Abdominal pain Qualifiers: Abdominal location: generalized Qualified Code(s): R10.84 - Generalized abdominal pain Qualifiers: Weeks of gestation: 10 weeks Qualified Code(s): Z3A.10 - 10 weeks gestation of Condition: Good Record reviewed to determine appropriate education?: Yes Instructions: ED Nosebleed Comments: Call your doctor to arrange a follow-up appointment, make the next available appointment. In the interim, return anytime if worse or if new symptoms develop. Your blood pressure was elevated today on check into the emergency department. This does not mean that you have hypertension, it is a common phenomenon to come to the emergency department and have elevated blood pressure. I recommend that you see your primary care physician within the week to have it rechecked when you are feeling better.
[2018-07-02 18:23] LABS: BILIRUBIN,URINE NEGATIVE (NEGATIVE); GLUCOSE, URINE (UA) NEGATIVE (NEGATIVE); KETONES,URINE (UA) NEGATIVE (NEGATIVE); LEUKOCYTE ESTERASE, URINE NEGATIVE (NEGATIVE); NITRITE,URINE NEGATIVE (NEGATIVE); OCCULT BLOOD,URINE NEGATIVE (NEGATIVE); PH,URINE 7.5 PH (5.0-7.5); PROTEIN,URINE NEGATIVE (NEGATIVE); UROBILINOGEN,URINE 0.2 (NORMAL) E.U./dL (NORMAL)
[2018-07-02 18:24] LABS: CLARITY,URINE CLEAR (CLEAR)
[2018-07-02 18:29] LABS: PT - PROTHROMBIN TIME 11.7 secs (9.9-12.6)
== END 2018-07-02 18:50 | disposition home or self-care (01) ==
LOC: ED 17:11
DX: O99.89 Other specified diseases and conditions complicating pregnancy, childbirth and the puerperium (principal); R04.0 Epistaxis; S00.31XA Abrasion of nose, initial encounter; I10 Essential (primary) hypertension; Z3A.10 10 weeks gestation of pregnancy
CPT/HCPCS: 36415; 80053; 81001; 81003; 83690; 85025; 85610; 87086; 99283

== ENCOUNTER 2018-07-07 08:00 | Outpatient (CLI) | payer OTHER, MEDICAID ==
[2018-07-07 17:36] LABS: MUDS CUTOFF CONCENTRATIONS CUTOFF CONC BELOW:
[2018-07-07 18:11] LABS: AMPHETAMINE SCREEN,URINE NEGATIVE (NEGATIVE); BENZODIAZEPINES SCREEN, URINE NEGATIVE (NEGATIVE); COCAINE SCREEN URINE NEGATIVE (NEGATIVE); METHADONE SCREEN, URINE NEGATIVE (NEGATIVE); METHAMPHETAMINES SCREEN, URINE NEGATIVE (NEGATIVE); OPIATE SCREEN, URINE NEGATIVE (NEGATIVE); OXYCODONE SCREEN, URINE NEGATIVE (NEGATIVE); PROPOXYPHENE SCREEN, URINE NEGATIVE (NEGATIVE); TRICYCLIC ANTIDEPRESSANT,URINE NEGATIVE (NEGATIVE)
== END 2018-07-07 08:01 | disposition home or self-care (01) ==
LOC: LAB.R 08:00
PROVIDERS: ATTEND Obstetrics & Gynecology
DX: O09.891 Supervision of other high risk pregnancies, first trimester (principal)
CPT/HCPCS: 80306

== ENCOUNTER 2018-07-27 11:17 | Emergency (ER) | payer OTHER, MEDICAID ==
[2018-07-27 11:36] VITALS: BP 134/86
[2018-07-27] MEDS ORDERED: HYDROcod/ACETAM 5/325 MG TABLET PO STA (14:28)
--- NOTE | 2018-07-27 14:28 | ED Physician Documentation ---
PD HPI HEADACHE - Stated complaint Stated Complaint: MIGRAINE W/ VISION CHAGNE,CONGESTION,14 WKS PREGNA - Chief complaint Chief Complaint: Neuro - History obtained from History obtained from: Patient - History of Present Illness Timing - onset: Other (27-year-old woman who is 14 weeks , G3 presents with 2 days of frontal and preorbital headache associated with green sinus drainage and right ear pain but no fevers. No sore throat or cough. Headache is not the worst of her life. She tried Tylenol without relief.) Review of Systems Constitutional: denies: Fever, Chills Eyes: reports: Photophobia. denies: Decreased vision Ears: reports: Ear pain. 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 HEENT: None Psych: None Musculoskeletal: None Derm: None - Past Surgical History Past Surgical History: No - Present Medications Home Medications: Ambulatory Orders Medication Instructions Recorded Confirmed Labetalol [Trandate] 100 mg PO 06/08/18 06/08/18 Vitamin [Trinatal Rx 1] 07/02/18 Azithromycin [Zithromax] 250 mg PO DAILY #6 tablet 07/27/18 Hydrocodone/Acetaminophen 1 - 2 each PO Q6H PRN #10 tablet 07/27/18 [Hydrocodon-Acetaminophen 5-325] Mometasone Furoate [Nasonex] 17 gm NS BID #1 spray.pump 07/27/18 - Allergies Allergies/Adverse Reactions: Allergies Allergy/AdvReac Type Severity Reaction Status Date / Time amoxicillin AdvReac Unknown Verified 07/27/18 11:36 - Social History Does the pt smoke?: No Smoking Status: Never smoker Does the pt drink ETOH?: No Does the pt have substance abuse?: No - Immunizations Immunizations are current?: Yes - POLST Patient has POLST: No PD ED PE NORMAL - Vitals Vital signs reviewed: Yes - General General: Alert and oriented X 3, No acute distress - HEENT HEENT: PERRL, EOMI, Other (Mild right otitis media, tender over the right maxillary sinus, oropharynx normal) - Neck Neck: Supple, no meningeal sign, No bony TTP - Female Female : Other (Bedside ultrasound shows single live intrauterine with heart rate of 154) - Neuro Neuro: Alert and oriented X 3, Normal speech Eye Opening: Spontaneous Motor: Obeys Commands Verbal: Oriented GCS Score: 15 - Psych Psych: Normal mood, Normal affect Results - Vitals Vitals: Vital Signs - 24 hr 07/27/18 11:33 Temperature 36.7 C Heart Rate 88 Respiratory 16 Rate Blood Pressure 134/86 H O2 Saturation 99 Oxygen O2 Source Room air - Labs Labs: Laboratory Tests 07/27/18 14:35 Urine Color YELLOW Urine Clarity CLEAR Urine pH 7.0 Ur Specific [place] 1.010 Urine Protein NEGATIVE Urine Glucose (UA) NEGATIVE Urine Ketones NEGATIVE Urine Occult Blood MODERATE H Urine Nitrite NEGATIVE Urine Bilirubin NEGATIVE Urine Urobilinogen 0.2 (NORMAL) Ur Leukocyte Esterase TRACE H Urine RBC 6-10 H Urine WBC 4-5 Ur Squamous Epith Cells MANY Squamous H Amorphous Sediment Few Urine Bacteria Few Ur Microscopic Review INDICATED Urine Culture Comments NOT INDICATED PD MEDICAL DECISION MAKING - ED course ED course: 27-year-old woman with a headache that is completely consistent with sinus headache that has failed treatment with Tylenol. Antibiotics will be given given status, amoxicillin is avoided given allergy. Departure - Departure Disposition: 01 Home, Self Care Clinical Impression: Sinusitis Qualifiers: Sinusitis location: maxillary Chronicity: acute Recurrence: recurrent Qualified Code(s): J01.01 - Acute recurrent maxillary sinusitis Condition: Good Record reviewed to determine appropriate education?: Yes Instructions: ED Sinusitis Abx Tx Prescriptions: Azithromycin [Zithromax] 250 mg PO DAILY #6 tablet Hydrocodone/Acetaminophen [Hydrocodon-Acetaminophen 5-325] 1 - 2 each PO Q6H PRN #10 tablet PRN Reason: pain Mometasone Furoate [Nasonex] 17 gm NS BID #1 spray.pump Comments: Call your doctor to arrange a follow-up appointment, make the next available ap pointment. In the interim, return anytime if worse or if new symptoms develop. Your blood pressure was elevated today on check into the emergency department. This does not mean that you have hypertension, it is a common phenomenon to come to the emergency department and have elevated blood pressure. I recommend that you see your primary care physician within the week to have it rechecked when you are feeling better.
[2018-07-27 14:47] LABS: BILIRUBIN,URINE NEGATIVE (NEGATIVE); GLUCOSE, URINE (UA) NEGATIVE (NEGATIVE); KETONES,URINE (UA) NEGATIVE (NEGATIVE); LEUKOCYTE ESTERASE, URINE TRACE (NEGATIVE); NITRITE,URINE NEGATIVE (NEGATIVE); OCCULT BLOOD,URINE MODERATE (NEGATIVE); PROTEIN,URINE NEGATIVE (NEGATIVE); UROBILINOGEN,URINE 0.2 (NORMAL) E.U./dL (NORMAL)
[2018-07-27 14:50] LABS: CLARITY,URINE CLEAR (CLEAR)
[2018-07-27 15:05] LABS: AMORPHOUS SEDIMENT,UR Few /LPF; BACTERIA,URINE Few /HPF (None Seen); SQUAMOUS EPITHELIAL CELL,UR MANY Squamous (<= Few)
== END 2018-07-27 15:14 | disposition home or self-care (01) ==
LOC: ED 11:17
DX: O99.512 Diseases of the respiratory system complicating pregnancy, second trimester (principal); J01.01 Acute recurrent maxillary sinusitis; O26.892 Other specified pregnancy related conditions, second trimester; R51 Headache; H66.91 Otitis media, unspecified, right ear; Z3A.14 14 weeks gestation of pregnancy; I10 Essential (primary) hypertension
CPT/HCPCS: 81001; 99283; A9270; 81003; 87086

== ENCOUNTER 2018-09-10 12:21 | Outpatient (CLI) | payer MEDICAID, OTHER ==
--- NOTE | 2018-09-11 08:44 | Ultrasound Report ---
Reason: ENCTR FOR SCREENING Procedure Date: 09/10/2018 Accession Number: [id number] / [id number] Procedure: US - OB Detailed Eval CPT Code: FULL RESULT: EXAM: COMPLETE OBSTETRICAL ULTRASOUND EXAM DATE: 09/10/2018 12:44 PM. CLINICAL HISTORY: anatomic survey. COMPARISON: 06/15/2018 and 06/08/2018. TECHNIQUE: Real-time sonographic evaluation of the fetus performed by the cancer program coordinator. Multiple billing representative static images were saved for review. Additional transvaginal imaging to more accurately evaluate cervical length/placental position/etc. DATING: Established EGA 20 weeks 1 day with SIMON 01/27/2019 based on LMP 04/22/2018. EGA 20 weeks 3 days with SIMON 01/25/2019 based on the current ultrasound. GENERAL EVALUATION Mcwilliams . Cardiac activity: 152 bpm. movement: Visualized. Presentation: Breech. Placenta: Anterior position. No evidence for previa. Umbilical cord: 3 vessel cord. Central placental cord origin. Amniotic fluid: Subjectively normal. MVP 5.1 cm. BIOMETRY Bi-Parietal Diameter (BPD): 4.7 cm, 20 weeks 2 days Head Circumference (HC): 17.7 cm, 20 weeks 1 day Abdominal Circumference (AC): 16.1 cm, 21 weeks 1 day Femur Length (FL): 3.3 cm, 20 weeks 1 day Estimated Weight: 368 g, 73rd percentile for weeks/days. ANATOMY Suboptimal visualization of the bilateral humeri, bilateral hands, 1 of 2 femurs, right leg/foot relationship, and left foot due to position. The intracranial structures, profile, face/nose/lips, spine, 4 chamber heart and outflow tracts, stomach, abdominal wall and cord insertion, diaphragm, kidneys, bladder, and remaining extremity structures were visualized and demonstrate no abnormality. MATERNAL STRUCTURES Uterus: Unremarkable. Cervix: Long and closed. Transabdominal length 4.1 cm. Right ovary/adnexa: Unremarkable. Left ovary/adnexa: Unremarkable. Free fluid: None. IMPRESSION: 1. Mcwilliams live intrauterine with gestational age weeks/days based on source of assigned dating. 2. Estimated weight is within expected limits for assigned dating. 3. Suboptimal visualization of several extremity structures, as detailed above. Recommend follow-up imaging in 2-3 weeks to complete the anatomic survey. No abnormality detected at this time. RADIA
== END 2018-09-10 12:22 | disposition home or self-care (01) ==
LOC: DI 12:21
PROVIDERS: ATTEND Obstetrics & Gynecology
DX: Z36.9 Encounter for antenatal screening, unspecified (principal)
CPT/HCPCS: 76811

== ENCOUNTER 2018-09-21 09:03 | Outpatient (CLI) | payer MEDICAID ==
--- NOTE | 2018-09-21 10:28 | Ultrasound Report ---
Reason: SUPERVISION OF OTHER HIGH RISK ,UNSPECIFI Procedure Date: 09/21/2018 Accession Number: [id number] / [id number] Procedure: US - OB F/U or Repeat CPT Code: FULL RESULT: EXAM: COMPLETE OBSTETRICAL ULTRASOUND EXAM DATE: 09/21/2018 09:34 AM. CLINICAL HISTORY: Supplementary/completion imaging for prior anatomic survey; poor visualization of the extremities on prior exam of 09/10/2018. COMPARISON: 09/10/2018 at 2:09 PM. TECHNIQUE: Real-time sonographic evaluation of the fetus performed by the genetics nurse. Multiple inventory representative static images were saved for review. DATING: Established EGA 21 weeks 5 days with SIMON 01/27/2019 based on last menstrual period. GENERAL EVALUATION Mcwilliams . Cardiac activity: 144 bpm. movement: Visualized. Presentation: Variable Placenta: Anterior position. No evidence for previa. Amniotic fluid: Subjectively normal with a four-quadrant CADY of 15.6. MVP 4.3 cm. BIOMETRY: Not specifically reassessed. ANATOMY All extremities including hands and feet are well imaged today and appear normal. MATERNAL STRUCTURES Uterus: Unremarkable. Cervix: Long and closed. Transabdominal length 4.3 cm. IMPRESSION: 1. Mcwilliams live intrauterine with gestational age 21 weeks 5 days based on last menstrual period. 2. Supplementary/completion anatomic imaging of the extremities appear normal. RADIA
== END 2018-09-21 09:04 | disposition home or self-care (01) ==
LOC: DI 09:03
PROVIDERS: ATTEND Obstetrics & Gynecology
DX: O09.92 Supervision of high risk pregnancy, unspecified, second trimester (principal)
CPT/HCPCS: 76816

== ENCOUNTER 2018-10-01 11:15 | Outpatient (CLI) | payer MEDICAID ==
[2018-10-01 11:35] LABS: BASOPHILS % (AUTO) 0.6 %; EOSINOPHILS # (AUTO) 0.1 10^3/uL (0.0-0.7); EOSINOPHILS % (AUTO) 0.8 %; HGB - HEMOGLOBIN 10.9 g/dL (12.0-16.0); LYMPHOCYTES # (AUTO) 1.2 10^3/uL (1.5-3.5); LYMPHOCYTES % (AUTO) 15.6 %; MEAN CORPUSCULAR HEMOGLOBIN 32.7 pg (27.0-31.0); MEAN CORPUSCULAR HGB CONC 36.2 g/dL (32.0-36.0); MEAN CORPUSCULAR VOLUME 90.1 fL (81.0-99.0); MEAN PLATELET VOLUME 7.3 fL (7.9-10.8); MONOCYTES # (AUTO) 0.4 10^3/uL (0.0-1.0); MONOCYTES % (AUTO) 4.6 %; NEUTROPHILS % (AUTO) 78.4 %; PLT - PLATELET COUNT 263 10^3/uL (130-450); RED BLOOD COUNT 3.34 10^6/uL (4.20-5.40); RED CELL DISTRIBUTION WIDTH 12.8 % (12.0-15.0); WHITE BLOOD COUNT 7.6 x10^3/uL (4.8-10.8)
== END 2018-10-01 11:16 | disposition home or self-care (01) ==
LOC: LAB 11:15
PROVIDERS: ATTEND Obstetrics & Gynecology
DX: O09.899 Supervision of other high risk pregnancies, unspecified trimester (principal); R10.9 Unspecified abdominal pain; M62.830 Muscle spasm of back; Z87.442 Personal history of urinary calculi
CPT/HCPCS: 36415; 81001; 82731; 85025; 87480; 87491; 87510; 87591; 87660

== ENCOUNTER 2018-10-01 12:02 | Outpatient (CLI) | payer MEDICAID ==
[2018-10-01 16:51] LABS: BILIRUBIN,URINE NEGATIVE (NEGATIVE); GLUCOSE, URINE (UA) NEGATIVE (NEGATIVE); KETONES,URINE (UA) NEGATIVE (NEGATIVE); LEUKOCYTE ESTERASE, URINE NEGATIVE (NEGATIVE); NITRITE,URINE NEGATIVE (NEGATIVE); OCCULT BLOOD,URINE LARGE (NEGATIVE); PROTEIN,URINE NEGATIVE (NEGATIVE); UROBILINOGEN,URINE 0.2 (NORMAL) E.U./dL (NORMAL)
[2018-10-01 17:07] LABS: BACTERIA,URINE Few /HPF (None Seen); CLARITY,URINE CLEAR (CLEAR); RBC,URINE 0-5 /HPF (0-5); SQUAMOUS EPITHELIAL CELL,UR MOD Squamous (<= Few)
== END 2018-10-01 23:59 | disposition home or self-care (01) ==
LOC: LAB.R 12:02
PROVIDERS: ATTEND Obstetrics & Gynecology
DX: O09.899 Supervision of other high risk pregnancies, unspecified trimester (principal); M62.830 Muscle spasm of back; R10.9 Unspecified abdominal pain
CPT/HCPCS: 81001; 82731; 87086; 87480; 87491; 87510; 87591; 87660

== ENCOUNTER 2018-10-02 19:34 | Outpatient (CLI) | payer MEDICAID ==
--- NOTE | 2018-10-05 10:24 | Ultrasound Report ---
Reason: HX OF KIDNEY STONES,ABDOMINAL PAIN,HEMATURIA Procedure Date: 10/02/2018 Accession Number: [id number] / [id number] Procedure: US - Retroperitoneal CPT Code: FULL RESULT: EXAM: RENAL ULTRASOUND EXAM DATE: 10/02/2018 08:55 PM. CLINICAL HISTORY: History of kidney stones, abdominal pain, hematuria. COMPARISON: Retroperitoneal limited 06/08/2018 10:25 PM. Abdomen limited 12/01/2015 6:15 PM. TECHNIQUE: Real-time scanning was performed with static images obtained. FINDINGS: Right Kidney: 10.9 cm. Normal echotexture and moderate hydronephrosis. Parenchymal flow is grossly preserved by color Doppler. Left Kidney: 11.6 cm. There is a 0.7 cm nonobstructing lower pole renal calculus. Trace hydronephrosis. Parenchymal flow is grossly preserved by color Doppler. Bladder: Bilateral jets seen. The prevoid bladder volume was 323 cc. The postvoid bladder volume was 9 cc. Other: None. IMPRESSION: Moderate right and trace left hydronephrosis. RADIA
== END 2018-10-02 19:35 | disposition home or self-care (01) ==
LOC: DI 19:34
PROVIDERS: ATTEND Obstetrics & Gynecology
DX: N13.30 Unspecified hydronephrosis (principal); R31.9 Hematuria, unspecified; N20.0 Calculus of kidney
CPT/HCPCS: 76770

== ENCOUNTER 2018-10-23 11:14 | Outpatient (CLI) | payer MEDICAID ==
--- NOTE | 2018-10-23 12:25 | XRAY Report ---
Reason: SINUSITIS,ACUTE FRONTAL Procedure Date: 10/23/2018 Accession Number: [id number] / [id number] Procedure: XR - Sinus Complete CPT Code: FULL RESULT: EXAM: SINUS RADIOGRAPHY EXAM DATE: 10/23/2018 11:19 AM. CLINICAL HISTORY: SINUSITIS,ACUTE FRONTAL. Pain COMPARISONS: None. TECHNIQUE: 3 views. FINDINGS: Bones: Normal. No fractures or bone lesions. Sinuses: Normal. No opacities or fluid levels. Mastoid Air Cells: Clear. Other: Normal. No soft tissue swelling. IMPRESSION: Normal sinus radiography. RADIA
== END 2018-10-23 11:15 | disposition home or self-care (01) ==
LOC: DI 11:14
PROVIDERS: ATTEND Obstetrics & Gynecology
DX: J01.10 Acute frontal sinusitis, unspecified (principal); O09.899 Supervision of other high risk pregnancies, unspecified trimester
CPT/HCPCS: 36415; 70220; 82950; 85025; 86850

== ENCOUNTER 2018-10-23 11:38 | Outpatient (CLI) | payer MEDICAID ==
[2018-10-23 12:59] LABS: BASOPHILS # (AUTO) 0.1 10^3/uL (0.0-0.1); BASOPHILS % (AUTO) 0.8 %; EOSINOPHILS # (AUTO) 0.1 10^3/uL (0.0-0.7); EOSINOPHILS % (AUTO) 1.2 %; HGB - HEMOGLOBIN 10.8 g/dL (12.0-16.0); LYMPHOCYTES # (AUTO) 1.1 10^3/uL (1.5-3.5); MEAN CORPUSCULAR HEMOGLOBIN 31.8 pg (27.0-31.0); MEAN CORPUSCULAR HGB CONC 34.9 g/dL (32.0-36.0); MEAN CORPUSCULAR VOLUME 91.2 fL (81.0-99.0); MEAN PLATELET VOLUME 7.6 fL (7.9-10.8); MONOCYTES # (AUTO) 0.5 10^3/uL (0.0-1.0); MONOCYTES % (AUTO) 5.9 %; NEUTROPHILS # (AUTO) 5.9 10^3/uL (1.5-6.6); NEUTROPHILS % (AUTO) 77.1 %; PLT - PLATELET COUNT 276 10^3/uL (130-450); WHITE BLOOD COUNT 7.6 x10^3/uL (4.8-10.8)
== END 2018-10-23 11:39 | disposition home or self-care (01) ==
LOC: LAB 11:38
PROVIDERS: ATTEND Obstetrics & Gynecology
DX: O09.899 Supervision of other high risk pregnancies, unspecified trimester (principal)
CPT/HCPCS: 36415; 82950; 85025; 86850

== ENCOUNTER 2018-11-06 11:21 | Outpatient (CLI) | payer MEDICAID ==
[2018-11-06 11:38] VITALS: BP 97/52
== END 2018-11-06 11:55 | disposition home or self-care (01) ==
LOC: WFO 11:21 → FBP 11:23 → WFO 11:55
PROVIDERS: ATTEND Obstetrics & Gynecology
DX: Z01.30 Encounter for examination of blood pressure without abnormal findings (principal)

== ENCOUNTER 2018-11-17 13:55 | Outpatient (CLI) | payer MEDICAID ==
[2018-11-17 14:24] LABS: CREATININE 0.5 mg/dL (0.4-1.0); URIC ACID 4.6 mg/dL (2.6-7.2)
[2018-11-17 14:29] LABS: BILIRUBIN,URINE NEGATIVE (NEGATIVE); GLUCOSE, URINE (UA) 100 mg/dL (NEGATIVE); KETONES,URINE (UA) NEGATIVE (NEGATIVE); LEUKOCYTE ESTERASE, URINE SMALL (NEGATIVE); NITRITE,URINE NEGATIVE (NEGATIVE); OCCULT BLOOD,URINE SMALL (NEGATIVE); PROTEIN,URINE NEGATIVE (NEGATIVE); UROBILINOGEN,URINE 0.2 (NORMAL) E.U./dL (NORMAL)
[2018-11-17 14:43] LABS: CLARITY,URINE CLEAR (CLEAR)
[2018-11-17 14:44] LABS: BACTERIA,URINE None Seen /HPF (None Seen); RBC,URINE 0-5 /HPF (0-5); SQUAMOUS EPITHELIAL CELL,UR MOD Squamous (<= Few)
[2018-11-19 10:11] LABS: CREATININE,URINE 63.1 mg/dL
== END 2018-11-17 13:56 | disposition home or self-care (01) ==
LOC: LAB 13:55
PROVIDERS: ATTEND Registered Nurse
DX: O16.9 Unspecified maternal hypertension, unspecified trimester (principal); O99.89 Other specified diseases and conditions complicating pregnancy, childbirth and the puerperium; R31.9 Hematuria, unspecified
CPT/HCPCS: 36415; 81001; 81003; 82565; 82570; 83615; 84156; 84450; 84550; 87086

== ENCOUNTER 2018-11-18 08:00 | Outpatient (CLI) | payer MEDICAID | END 2018-11-18 08:01 | disposition home or self-care (01) | LOC: LAB 08:00 | PROVIDERS: ATTEND Registered Nurse | DX: Z53.9 Procedure and treatment not carried out, unspecified reason (principal) ==

== ENCOUNTER → 2018-11-18 | Outpatient (CLI) | payer MEDICAID ==
[2018-11-19 10:11] LABS: CREATININE,URINE 63.1 mg/dL
== END ==
LOC: LAB 08:00
PROVIDERS: ATTEND Registered Nurse
DX: O16.9 Unspecified maternal hypertension, unspecified trimester (principal)
CPT/HCPCS: 82570; 84156

== ENCOUNTER 2018-12-01 11:09 | Outpatient (CLI) | payer MEDICAID ==
--- NOTE | 2018-12-01 16:15 | Ultrasound Report ---
Reason: CHROINIC HYPERTENSION COMPLICATING AND/OR REASON F Procedure Date: 12/01/2018 Accession Number: [id number] / [id number] Procedure: US - OB F/U or Repeat CPT Code: FULL RESULT: EXAM: FOLLOW-UP OBSTETRICAL ULTRASOUND EXAM DATE: 12/01/2018 12:18 PM. CLINICAL HISTORY: Chronic hypertension complicating the gestation. COMPARISON: 09/21/2018 and prior ultrasounds dating back to 06/08/2018. TECHNIQUE: Real-time sonographic evaluation of the fetus performed by the cloth washer. Multiple public utilities sales representative static images were saved for review. DATING: Established EGA 31 weeks 6 days with SIMON 01/27/2019 based on linoleum layer helper. EGA 32 weeks 0 days with SIMON 01/26/2019 based on the current ultrasound. GENERAL EVALUATION Mcwilliams . Cardiac activity: 152 bpm. movement: Visualized. Presentation: Breech. Placenta: Anterior position. Amniotic fluid: Normal. CADY 16.9 cm. MVP 5.6 cm. BIOMETRY Bi-Parietal Diameter (BPD): 8.1 cm, 32 weeks 2 days Head Circumference (HC): 29.5 cm, 32 weeks 4 days Abdominal Circumference (AC): 29.2 cm, 33 weeks 1 day Femur Length (FL): 5.8 cm, 30 weeks 2 days Estimated Weight: 1931 g, 53rd percentile for 31 weeks 6 days. MATERNAL STRUCTURES The cervix is long and closed, 5.3 cm. IMPRESSION: 1. Mcwilliams live intrauterine with gestational age 31 weeks 6 days based on linoleum layer helper. 2. Estimated weight is within expected limits for assigned dating. 3. Normal interval growth compared to 09/10/2018. RADIA
== END 2018-12-01 11:10 | disposition home or self-care (01) ==
LOC: DI 11:09
PROVIDERS: ATTEND Registered Nurse
DX: O16.9 Unspecified maternal hypertension, unspecified trimester (principal); Z3A.31 31 weeks gestation of pregnancy
CPT/HCPCS: 76816

== ENCOUNTER 2018-12-11 08:38 | Outpatient (CLI) | payer MEDICAID ==
[2018-12-11 09:44] LABS: BASOPHILS % (AUTO) 0.6 %; EOSINOPHILS # (AUTO) 0.1 10^3/uL (0.0-0.7); EOSINOPHILS % (AUTO) 0.9 %; HGB - HEMOGLOBIN 10.2 g/dL (12.0-16.0); LYMPHOCYTES # (AUTO) 1.2 10^3/uL (1.5-3.5); LYMPHOCYTES % (AUTO) 17.2 %; MEAN CORPUSCULAR HEMOGLOBIN 31.5 pg (27.0-31.0); MEAN CORPUSCULAR HGB CONC 35.2 g/dL (32.0-36.0); MEAN CORPUSCULAR VOLUME 89.6 fL (81.0-99.0); MEAN PLATELET VOLUME 7.6 fL (7.9-10.8); MONOCYTES # (AUTO) 0.4 10^3/uL (0.0-1.0); MONOCYTES % (AUTO) 5.6 %; NEUTROPHILS # (AUTO) 5.4 10^3/uL (1.5-6.6); NEUTROPHILS % (AUTO) 75.7 %; PLT - PLATELET COUNT 228 10^3/uL (130-450); RED BLOOD COUNT 3.22 10^6/uL (4.20-5.40); RED CELL DISTRIBUTION WIDTH 13.1 % (12.0-15.0); WHITE BLOOD COUNT 7.1 x10^3/uL (4.8-10.8)
[2018-12-11] MEDS ORDERED: LABETALOL 100 MG TABLET PO SCH (10:00)
[2018-12-11 10:19] LABS: CREATININE,URINE 65.8 mg/dL; PROTEIN/CREATININE RATIO,URINE 0.2 (<=0.2)
[2018-12-11 10:22] LABS: ALBUMIN/GLOBULIN RATIO 0.9 (1.0-2.2); ALKALINE PHOSPHATASE 112 IU/L (42-121); ALT ALANINE AMINOTRANSFERASE 10 IU/L (10-60); AST ASPARTATE AMINOTRANSFERASE 21 IU/L (10-42); BILIRUBIN,TOTAL 0.8 mg/dL (0.2-1.0); BUN - BLOOD UREA NITROGEN < 5 mg/dL (6-20); CALCIUM 8.3 mg/dL (8.5-10.3); CARBON DIOXIDE - CO2 22 mmol/L (21-32); CHLORIDE 100 mmol/L (101-111); CREATININE 0.4 mg/dL (0.4-1.0); GFR - MDRD 189 (>89); GLUCOSE 94 mg/dL (70-100); SODIUM 136 mmol/L (135-145); TOTAL PROTEIN 6.4 g/dL (6.7-8.2)
[2018-12-11] MEDS ORDERED: POTASSIUM CHLORIDE 20 MEQ TABLET PO SCH (11:00)
[2018-12-11] MEDS ORDERED: POTASSIUM PHOSPHATE 21 MMOL in SODIUM CHLORIDE 0.9% 250 ML IV ONE (11:02)
--- NOTE | 2018-12-11 11:33 | CONSULTATION NOTE ---
Referring Provider Name of Referring Provider:: Dr. Ericka Abdul Consult Date: 12/11/18 Chief Complaint - Chief Complaint Chief Complaint: Muscle cramping with associated headaches to locations of gravid uterus, ba History of Present Illness - Admitted From Admitted From:: Home - History Obtained From Records Reviewed: yes History obtained from: patient Exam Limitations: none - History of Present Illness HPI Comment/Other: This is a pleasant 28-year-old female with IUP @33 weeks with history of chronic hypokalemia from history as well as lab review for which patient states prior to 2016 she has had cramping associated with her hypoka lemia. Upon lab review in 2016 patient had a potassium as well as 2.7. Patient denies any genetic or familial history of hypokalemia type syndromes in the family. Patient was referred by primary [employer] Ericka Abdul. She was worked up for preeclampsia which was unremarkable on this visitation. Currently she has symptomatic chronic hypokalemia without visible causes such as hyperemesis gravidarum, acute gastroenteritis or diarrhea which would precipitate GI losses of hypo-kalemia and losses of other electrolytes. No evidence of renal disease or underlying etiologies with electrolyte disturbances in the past noted. Patient does suffer from chronic hypertension for which she takes labetalol 200 mg p.o. twice daily which is currently being dispensed. Upon further review patient mentions symptomatic palpitations for which prior workups such as TSH has been checked and with no evidence of hyperthyroidism. Patient had an EKG which showed sinus tachycardia at 99 bpm with ventricular premature complexes as well as LVH and non-ST abnormality to the anterior leads. Patient's labs were reviewed and today's potassium was 2.5 with a creatinine 0.4, hemoglobin 10.2 with a hematocrit of 29.9 MCV of 89.6 with an anion gap of 14.0 chloride of 100 patient's urine creatinine was 65.8 along with protein and creatinine ratio of 0.2. Vital signs were hemodynamically stable slightly tachycardic with a blood pressure 141/97 and non-tachypneic and non-hypoxemic. Patient denied antibiotic use, diuretic use, or taking herbal medicines. Patient currently is in her third trimester at 33 weeks and has been assessed by [employer] service. History - Past Medical History Cardiovascular: reports: Hypertension Respiratory: reports: None Neuro: reports: None Endocrine/Autoimmune: reports: None GI: reports: None MAST MAKER: reports: None : reports: None HEENT: reports: None Psych: reports: None Musculoskeletal: reports: None Derm: reports: None MRSA Hx?: No - POLST Patient has POLST: No Meds/Allgy - Home Medications Home Medications: Ambulatory Orders Medication Instructions Recorded Confirmed Labetalol [Trandate] 100 mg PO 06/08/18 06/08/18 Vitamin [Trinatal Rx 1] 07/02/18 Azithromycin [Zithromax] 250 mg PO DAILY #6 tablet 07/27/18 Hydrocodone/Acetaminophen 1 - 2 each PO Q6H PRN #10 tablet 07/27/18 [Hydrocodon-Acetaminophen 5-325] Mometasone Furoate [Nasonex] 17 gm NS BID #1 spray.pump 07/27/18 - Allergies Allergies/Adverse Reactions: Allergies Allergy/AdvReac Type Severity Reaction Status Date / Time amoxicillin AdvReac Unknown Verified 07/27/18 11:36 Review of Systems - Constitutional Constitutional: reports: Chills. denies: Fatigue, Fever, Poor appetite - Eyes Eyes: denies: Blurred vision, Vision loss - Ears, Nose & Throat Ears, Nose & Throat: reports: Nasal congestion. denies: Vertigo, Nosebleeds, Mouth lesions - Cardiovascular Cariovascular: reports: Palpitations. denies: Chest pain, Edema, Lightheadedness, Syncope - Respiratory Respiratory: denies: Cough, Wheezing, Hemoptysis, SOB at rest, Apnea, Pleuritic pain - Gastrointestinal Gastrointestinal: denies: Abdominal pain, Abdominal distention, Constipation, Diarrhea, Nausea, Vomiting, Coffee grounds emesis, Reflux/heartburn, Poor appetite - Genitourinary Genitourinary: denies: Dysuria, Frequency, Urgency, Incontinence, Flank pain, Nocturia, Urethral discharge, Sexual dysfunction - Musculoskeletal Musculoskeletal: reports: Muscle pain, Muscle aches, Other (Muscle spasms to distal muscles back thorax neck bitemporal regions) - Integumentary Integumentary: denies: Rash, Pruritis, Lesions, Dryness, Pigment changes - Neurological Neurological: denies: General weakness, Focal weakness, Dizziness, Numbness, Pre-existing deficit, Abnormal gait, Seizures, Incoordination - Psychiatric Psychiatric: denies: Depression, Anxiety, Suicidal - Endocrine Endocrine: denies: Polyuria, Polydypsia, Polyphagia, Intolerance to cold, Intolerance to heat - Hematologic/Lymphatic Hematologic/Lymphatic: reports: Anemia. denies: Bruising, Petechiae, Blood pilar ts, Bleeding tendencies, Recurrent infections - All Other Systems All Other Systems: reports: Reviewed and negative Exam - Vital Signs Reviewed Vital Signs: Yes Vital Signs: Vital Signs x48h Temp Pulse Resp BP 12/11/18 09:27 141/97 H 12/11/18 09:19 138/93 H 12/11/18 09:18 137/107 H 12/11/18 09:03 150/106 H 12/11/18 08:56 36.8 C 102 H 16 154/101 H - Physical Exam General Appearance: positive: No acute distress, Alert Eyes Bilateral: positive: Normal inspection, PERRL, EOMI ENT: positive: ENT inspection nml, Pharynx nml, No signs of dehydration Neck: positive: Nml inspection, Thyroid nml, No JVD, Trachea midline, Thyromegaly Respiratory: positive: Chest non-tender, No respiratory distress, Breath sounds nml Cardiovascular: positive: Regular rate & rhythm, No murmur, Tachycardia. negative: Irregularly irregular, PMI displaced laterally, JVD present, Systolic murmur, Gallop/S4 Peripheral Pulses: positive: 2+ Abdomen: positive: Non-tender, No organomegaly, Nml bowel sounds, No distention, Other (Gravid uterus). negative: Guarding, Rebound, Hepatomegaly, Splenomegaly Back: positive: Nml inspection Skin: positive: Color nml, No rash, Warm, Dry Extremities: positive: Non-tender, Full ROM Neurologic/Psychiatric: positive: Oriented x3, CN's nml (2-12) Reflexes: Knee (R): 1+, Knee (L): 1+, Ankle (R): 2+, Ankle (L): 2+ Babinski Reflex: Right: Absent, Left: Absent Conclusion/Plan - Diagnosis Diagnosis: 1. Symptomatic chronic hypokalemia. 2. Muscle spasms associated with #1. 3. Sinus tachycardia with abnormal ECG. 4. Chronic hypertension in . 5. Normocytic normochromic anemia - Plan Plan: This is a pleasant 28-year-old female with IUP @33 weeks with history of chronic hypokalemia. Patient is with symptomatic chronic hypokalemia with associated muscle cramping to her gravid uterus which may or may not be causing contractions, along with back neck and peripheral muscle spasms. Patient denies being on antibiotics, diuretics, or herbal medicines that would potentiate hypokalemia along with denying any familial history of a potassium wasting genetic syndrome. In addition there are no history of her having hyperemesis gravidarum, diarrhea, or any GI losses. EKG shows no acute dysrhythmias however sinus tachycardia at 99 bpm with premature ventricular complexes as well as LVH criteria and ST-T wave abnormalities in the anterior leads may be an indication of hypokalemia severe enough that would mandate treatment with a 2.5 level. Magnesium level was slightly on the low side of 1.7, phosphate, ionized calcium was 1.10, would correct underlying electrolytes as this may be refractory to treatment if these are low. IV potassium phosphate 21 mmol x1 along with 1 dose of K Dur 40 mEq p.o. x1. In addition patient needs a workup for possible hyperaldosteronism which may cause hypokalemia Albiet patient lacks the typical common causes of hypokalemia such as antibiotic use, diuretic use, hyperemesis gravidarum or any infectious diarrhea that would lose K drom GI insensible losses. In addition patient has been worked up for preeclampsia which was essentially unremarkable with a urine creatinine of 65.8 and a protein creatinine ratio 0.2. Patient does have likely iron deficiency anemia although she is currently normocytic with a hemoglobin of 10.2 with no acute bleeding events. Patient will be continued on labetalol 200 mg p.o. twice daily per [employer]. Her vital signs are stable at this point. I suspect that patient's chronic hypokalemia has been present as far as 2015 for which a potassium level back then was 2.7. Complications of untreated hypokalemia in the third trimester would vary but the levels need to be maintained at 3.3-5.1 to avoid hypokalemic periodic paralysis, cardiac arrhythmias, exacerbation to her current chronic hypertension in , or acute renal insufficiency. Patient will have a potassium rechecked after receiving IV K-Phos as well as oral potassium chloride. Patient will likely need to be dispensed as an outpatient with oral potassium and was educated and counseled on increasing potassium in her diet in the form of increasing consumption of bananas, spinach, avocados, tomatoes, white being and potentially getting electrolyte supplementation to about 2 g/day. Thank you for this consultation please call me for any further clarification of medical management. - Lab Results Lab results reviewed: Yes Fish Bones: 12/11/18 09:37 12/11/18 09:37 - EKG Results EKG Interpreted Independently: Yes EKG Comparison: Old EKG unavailable (Sinus tachycardia with premature ventricular complexes with a sinus rhythm at 99 bpm LVH criteria non-specific T wave abnormalities anterior leads)
[2018-12-11 12:11] LABS: VBG PH 7.483 (7.31-7.41)
[2018-12-11] MEDS ORDERED: SODIUM CHLORIDE FLUSH 0.9% 10 ML SYRINGE ONE (12:28)
[2018-12-11] MEDS ORDERED: ACETAMINOPHEN 325 MG TABLET PO PRN (17:06)
--- NOTE | 2018-12-11 17:38 | HISTORY & PHYSICAL EXAMINATION ---
History of Present Illness - History of Present Illness HPI Comment/Other: CC: here for routine NST HPI: Pt is here for routine surveillance for her chronic HTN. Has been on labetalol 200mg bid at home, taking faithfully, took this am. No NAVARRO, visual changes, or upper abd pain. No VB, LOF, or contractions. Good FM PMH: anx/dep, chronic HTN, muscle spasms, hx of kidney stones, GERD PSH: neg Meds: labetalol and PNV Allergies: Amox ROS: see HPI OB: complicated by chronic HTN, dep and anx. O: Inital BP elevated with DBPs of up to 107. Lungs CTA bilat Cor RRR no murmurs Abd soft, nt/nd LE: no edema or tenderness Normal AST, ALT, plts. P:C 0.2. Anemia preset Hct 28, normal MCV K = 2.5 A/P: 28yo at 33w with chronic HTN and hypokalemia --Ruled out for preeclampsia. As her hypokalemia is being treated pt now complains of a signifiant NAVARRO and chest pain. NAVARRO is throbbing. Chest pain has been intermittent throughtout . Doesn't feel like heart is skipping beats or is racing. No cough, no hemoptysis. EKG normal today. Exam is normal except for chest pain is reproduced with mild sternal pressure c/w MSK cause. Will give tylenol for her NAVARRO. If severe NAVARRO persists then consider re-eval for preeclampsia. --Hypokalemia s/p internal med consult, they are replacing, no clear etiology seen. Recheck K after replacemtn, hopefully will go home today. Will need to continue potassium replacements at home. --Chronic HTN: BPs improved following 100mg of labetalol x1. Will have her follow home BP more closely--may need to increase daily labetalol dose. --Normocytic anemia Hct 28 at 33w. Will need to follow--may need antepartum transfusion. Will add iron studies to next blood draw. -- well being reassuring--had category 1 NST, no signs of labor. History - Past Medical History Cardiovascular: reports: Hypertension Respiratory: reports: None Neuro: reports: None Endocrine/Autoimmune: reports: None GI: reports: None NON PROFIT FINANCIAL CONTROLLER: reports: None : reports: None HEENT: reports: None Psych: reports: None Musculoskeletal: reports: None Derm: reports: None MRSA Hx?: No - POLST Patient has POLST: No Meds/Allgy - Home Medications Home Medications: Ambulatory Orders Medication Instructions Recorded Confirmed Labetalol [Trandate] 100 mg PO 06/08/18 06/08/18 Vitamin [Trinatal Rx 1] 07/02/18 Azithromycin [Zithromax] 250 mg PO DAILY #6 tablet 07/27/18 Hydrocodone/Acetaminophen 1 - 2 each PO Q6H PRN #10 tablet 07/27/18 [Hydrocodon-Acetaminophen 5-325] Mometasone Furoate [Nasonex] 17 gm NS BID #1 spray.pump 07/27/18 - Allergies Allergies/Adverse Reactions: Allergies Allergy/AdvReac Type Severity Reaction Status Date / Time amoxicillin AdvReac Unknown Verified 07/27/18 11:36 Exam - Vital Signs Vital Signs: Vital Signs x48h BP 12/11/18 09:27 141/97 H Conclusion/Plan - Lab Results Lab results reviewed: Yes Fish Bones: 12/11/18 09:37 12/11/18 09:37
[2018-12-11] MEDS ORDERED: FLUTICASONE NASAL SPRAY NAS SCH (18:00)
[2018-12-11 20:16] VITALS: BP 143/90
[2018-12-11] MEDS ORDERED: SODIUM CHLORIDE 0.9% IV ONE (20:17)
[2018-12-11] MEDS ORDERED: IRON SUCROSE IV ONE (20:17)
[2018-12-12] MEDS ORDERED: PRENATAL VITAMIN TABLET PO SCH (08:00)
== END 2018-12-11 20:45 | disposition home or self-care (01) ==
LOC: WFO 08:38 → FBP 08:42 → WFO 20:45
PROVIDERS: ATTEND Obstetrics & Gynecology
DX: O13.3 Gestational [pregnancy-induced] hypertension without significant proteinuria, third trimester (principal); O99.283 Endocrine, nutritional and metabolic diseases complicating pregnancy, third trimester; E87.6 Hypokalemia; E61.1 Iron deficiency; O99.013 Anemia complicating pregnancy, third trimester; D64.9 Anemia, unspecified; O99.89 Other specified diseases and conditions complicating pregnancy, childbirth and the puerperium; R51 Headache; R07.89 Other chest pain; R94.31 Abnormal electrocardiogram [ECG] [EKG]; Z3A.33 33 weeks gestation of pregnancy; Z79.899 Other long term (current) drug therapy
CPT/HCPCS: 36415; 59025; 80053; 82088; 82164; 82330; 82570; 82607; 82728; 82746; 83540; 83735; 84100; 84132; 84156; 84244; 84443; 84466; 85025; 93005; 96365; 99214; A9270; 82747

== ENCOUNTER 2018-12-14 09:40 | Observation (INO) | payer MEDICAID ==
[2018-12-14] MEDS ORDERED: IRON SUCROSE 300 MG in SODIUM CHLORIDE 0.9% 250 ML IV ONE (10:00)
[2018-12-14] MEDS ORDERED: CYANOCOBALAMIN 1,000 MCG/ML VIAL IM ONE (10:00)
[2018-12-14] MEDS ORDERED: SODIUM CHLORIDE FLUSH 0.9% 10 ML SYRINGE ONE (10:08)
[2018-12-14] MEDS ORDERED: SODIUM CHLORIDE 0.9% 750 ML IV ONE (11:31)
[2018-12-14] MEDS ORDERED: SODIUM CHLORIDE 0.9% 1,000 ML IV ONE (11:42)
[2018-12-14 12:16] LABS: ALBUMIN 2.9 g/dL (3.2-5.5); ALKALINE PHOSPHATASE 106 IU/L (42-121); ALT ALANINE AMINOTRANSFERASE < 10 IU/L (10-60); AST ASPARTATE AMINOTRANSFERASE 17 IU/L (10-42); BILIRUBIN,TOTAL 0.4 mg/dL (0.2-1.0); BUN - BLOOD UREA NITROGEN < 5 mg/dL (6-20); CALCIUM 8.4 mg/dL (8.5-10.3); CARBON DIOXIDE - CO2 23 mmol/L (21-32); CHLORIDE 108 mmol/L (101-111); CREATININE 0.4 mg/dL (0.4-1.0); GFR - MDRD 189 (>89); GLUCOSE 97 mg/dL (70-100); SODIUM 139 mmol/L (135-145); TOTAL PROTEIN 5.9 g/dL (6.7-8.2)
--- NOTE | 2018-12-14 12:37 | PROVIDER PROGRESS NOTE ---
Subjective - Subjective Subjective: Patient is here for NST today due to chronic HTN. Also here for IV iron and IM B12 injection. S: has started having diarrhea since oral potassium start a few days ago. Reports copious diarrhea 4x per day with urgency associated. No ill contacts. Low back pain with pain radiating down both LEs Mild UC started this am. About every 6min. No VB, no LOF. Intermittently good FM. O: HR 101, BP 132/91 36.8 16 Appears pale and tired. Affect flat as per usual UC palpate mild NST 140 baseline, mod LTV present, accels present, decels absent Parks q2-6min with longer interval after po hydration. A/P 28yo at 33w1d with multiple problems 1) Chronic hypertension, on labetalol 200mg po bid. Good BP control with this. Has not had signs of superimposed preeclampsia. --Normal baseline preeclampsia labs with P:C 0.1 --Is on ASA 81mg daily --IOL recommended at 37-39w per ACOG criteria. Given the other current medical issues I would lean closer to 37w. Will arrange a date for IOL today. --SIMON 01/27/19 by LMP c/w 6w US. Dating criteria LMP 04/22/18--> 01/27/19. US 06/08/18 6w6d CRL-->01/26/19 2) Chronic hypokalemia evaluated by hospitalist last week. --On 12/11/18: K was 2.5. Got IV replacement. Normal Cr and GFR. Normal a ldosterone and renin as well as the ratio. Normal Magnesium phosphorus. Ionized calcium a bit low at 1.1, TSH 0.58. Normal renal US 10/05/18 --Unclear etilogy--will need to see medicine after she delivers --Has developed diarrhea with oral potassium 20meq daily at home. Will ask med alessio about this. --Recheck potassium today in the setting of diarrhea. 3) New onset diarrhea. No ill contacts. Multiple hospital visits for surveillance. --C.diff PCR ordered, pt has not had BM yet here. 4) Chronic anemia both iron and B12 deficient. Folate was normal. on 12/11/18 Hct was 28.9, MCV 39, low Fe, low B12. --Veofer 300mg IV today and repeat in 3 days. Is on home iron po daily. --Vitamin B12 1000mg IM today and repeat in 3 days. 5) HSV history need to start prophylaxis now as delivery anticipted in 4 weeks. 6) contractions likely due to dehydration. Resolving with po and IV hydration. Prior term delivery x2. Will get FFN and cervical length. 7) well-being in setting of her chronic HTN --Category 1 NST today --MVP today is planned --Last growth US 12/01/18: 53%ile with normal AC. Repeat around 12/21. --Continue 2x/w surveillance 8) Chronic anxiety and depression, recently tried zoloft and stopped it due to fatogie --Will refer to a PCP and to counseling today 9) Routine care: --Rh + --Normal 1h GTT --s/p Tdap --Normal anatomy scan -- control plans a hysterectomy for AUB refractory to medical management. Would like this to be done PAYTON which would be 6-8w . In the meantime she has decided to be abstinent vs. use condoms. Will sign federal sterilization consent form today 10) LBP today, hx of chronic muscle spasm. Recommended accupuncture, heat/ice, stretching, and physical therapy --refer to PT today 11) Heartburn on pepcid 12) chronic UTI and nephrolithiasis with intermittent hematuria. Now on daily nitrofurantoin prophylaxis. Normal renal US 09/2018 (for with trace to moderate hydronephrosis seen) except for a 7mm renal calculus. Objective - Vital Signs/Intake & Output Vital Signs: Vital Signs x48h Temp Pulse Pulse Resp BP BP 12/14/18 10:15 98.2 F 93 16 111/70 12/14/18 10:00 98.2 F 101 H 16 132/91 H - Lab Results Fish Bones: 12/14/18 11:55 Other Labs: Lab Results x24hrs 12/14/18 Range/Units 11:55 Sodium 139 (135-145) mmol/L Potassium 4.1 (3.5-5.0) mmol/L Chloride 108 (101-111) mmol/L Carbon Dioxide 23 (21-32) mmol/L Anion Gap 8.0 (6-13) BUN < 5 L (6-20) mg/dL Creatinine 0.4 (0.4-1.0) mg/dL Estimated GFR (MDRD) 189 (>89) Glucose 97 (70-100) mg/dL Calcium 8.4 L (8.5-10.3) mg/dL Total Bilirubin 0.4 (0.2-1.0) mg/dL AST 17 (10-42) IU/L ALT < 10 L (10-60) IU/L Alkaline Phosphatase 106 (42-121) IU/L Total Protein 5.9 L (6.7-8.2) g/dL Albumin 2.9 L (3.2-5.5) g/dL Globulin 3.0 (2.1-4.2) g/dL Albumin/Globulin Ratio 1.0 (1.0-2.2)
--- NOTE | 2018-12-14 15:31 | Ultrasound Report ---
Reason: MVP. chronic hypertension. Will also need TVUS Procedure Date: 12/14/2018 Accession Number: [id number] / [id number] Procedure: US - OB Limited CPT Code: FULL RESULT: EXAM: LIMITED OBSTETRICAL ULTRASOUND. EXAM DATE: 12/14/2018 02:05 PM. CLINICAL HISTORY: MVP. Chronic hypertension. COMPARISON: OB LIMITED 12/01/2015 5:39 PM. TECHNIQUE: Real-time sonographic evaluation of the fetus performed by the and rescue fire fighter crash fire. Multiple sales service representative static images were saved for review. DATING: Established EGA 33 weeks 5 days with SIMON 01/27/2019. GENERAL EVALUATION Mcwilliams . Cardiac activity: 117 bpm. movement: Visualized. Presentation: Cephalic. Placenta: Anterior position. No previa. Placental margin well seen transabdominally. Amniotic fluid: Normal. CADY 12.2 cm. MVP 4.4 cm. Cervix: Long and closed. 4.1 cm by transabdominal measurement. ANATOMY Not specifically imaged. MATERNAL STRUCTURES Not specifically imaged. IMPRESSION: 1. Mcwilliams live intrauterine with gestational age 33 weeks 5 days based on established SIMON. 2. Normal CADY of 12.2 cm, MVP 4.4 cm. 3. Anterior placenta, no previa. 4. Cervical length 4.1 cm. RADIA
[2018-12-14 16:01] VITALS: BP 137/86
== END 2018-12-14 15:55 | disposition home or self-care (01) ==
LOC: WFO 09:40 → FBP 09:49 → WFO 13:58 → UNDOADMOB 13:59 → FBP 13:59
PROVIDERS: ADMIT Obstetrics & Gynecology; ATTEND Obstetrics & Gynecology
DX: O10.913 Unspecified pre-existing hypertension complicating pregnancy, third trimester (principal); O99.283 Endocrine, nutritional and metabolic diseases complicating pregnancy, third trimester; E87.6 Hypokalemia; K52.1 Toxic gastroenteritis and colitis; T50.3X5A Adverse effect of electrolytic, caloric and water-balance agents, initial encounter; O99.013 Anemia complicating pregnancy, third trimester; D50.9 Iron deficiency anemia, unspecified; D51.9 Vitamin B12 deficiency anemia, unspecified; O60.03 Preterm labor without delivery, third trimester; E86.0 Dehydration; O99.343 Other mental disorders complicating pregnancy, third trimester; F41.9 Anxiety disorder, unspecified; F32.9 Major depressive disorder, single episode, unspecified; O99.89 Other specified diseases and conditions complicating pregnancy, childbirth and the puerperium; M62.830 Muscle spasm of back; O99.613 Diseases of the digestive system complicating pregnancy, third trimester; K21.9 Gastro-esophageal reflux disease without esophagitis; O23.43 Unspecified infection of urinary tract in pregnancy, third trimester; N13.2 Hydronephrosis with renal and ureteral calculous obstruction; Z3A.33 33 weeks gestation of pregnancy; Z86.19 Personal history of other infectious and parasitic diseases
CPT/HCPCS: 36415; 59025; 76815; 80053; 82731; 96372; 96374; G0378; J1756

== ENCOUNTER 2018-12-17 09:44 | Outpatient (CLI) | payer MEDICAID ==
[2018-12-17] MEDS ORDERED: CYANOCOBALAMIN 1,000 MCG/ML VIAL IM SCH (10:17)
[2018-12-17 10:30] VITALS: BP 133/91
[2018-12-17] MEDS ORDERED: SODIUM CHLORIDE FLUSH 0.9% 10 ML SYRINGE ONE (10:50)
[2018-12-17] MEDS ORDERED: IRON SUCROSE IV ONE (11:00)
[2018-12-17] MEDS ORDERED: SODIUM CHLORIDE 0.9% IV ONE (11:00)
== END 2018-12-17 12:10 | disposition home or self-care (01) ==
LOC: WFO 09:44 → FBP 10:16 → WFO 12:10
PROVIDERS: ATTEND Obstetrics & Gynecology
DX: O16.3 Unspecified maternal hypertension, third trimester (principal); O99.283 Endocrine, nutritional and metabolic diseases complicating pregnancy, third trimester; E61.1 Iron deficiency; E53.8 Deficiency of other specified B group vitamins; Z3A.34 34 weeks gestation of pregnancy
CPT/HCPCS: 59025; 96372; 96374; J1756

== ENCOUNTER 2018-12-20 09:48 | Outpatient (CLI) | payer MEDICAID ==
[2018-12-20 10:57] LABS: HGB - HEMOGLOBIN 10.3 g/dL (12.0-16.0); MEAN CORPUSCULAR HEMOGLOBIN 31.7 pg (27.0-31.0); MEAN CORPUSCULAR VOLUME 90.5 fL (81.0-99.0); MEAN PLATELET VOLUME 7.6 fL (7.9-10.8); RED BLOOD COUNT 3.26 10^6/uL (4.20-5.40); RED CELL DISTRIBUTION WIDTH 13.2 % (12.0-15.0); WHITE BLOOD COUNT 8.6 x10^3/uL (4.8-10.8)
[2018-12-20 11:10] LABS: ALBUMIN/GLOBULIN RATIO 0.9 (1.0-2.2); ALKALINE PHOSPHATASE 120 IU/L (42-121); ALT ALANINE AMINOTRANSFERASE 14 IU/L (10-60); AST ASPARTATE AMINOTRANSFERASE 25 IU/L (10-42); BILIRUBIN,TOTAL 0.6 mg/dL (0.2-1.0); BUN - BLOOD UREA NITROGEN < 5 mg/dL (6-20); CALCIUM 8.3 mg/dL (8.5-10.3); CARBON DIOXIDE - CO2 22 mmol/L (21-32); CHLORIDE 103 mmol/L (101-111); CREATININE 0.6 mg/dL (0.4-1.0); GFR - MDRD 118 (>89); GLUCOSE 108 mg/dL (70-100); SODIUM 133 mmol/L (135-145); TOTAL PROTEIN 6.4 g/dL (6.7-8.2)
[2018-12-20 11:59] VITALS: BP 134/89
== END 2018-12-20 11:35 | disposition home or self-care (01) ==
LOC: WFO 09:48 → FBP 09:49 → WFO 11:35
PROVIDERS: ATTEND Obstetrics & Gynecology
DX: O10.913 Unspecified pre-existing hypertension complicating pregnancy, third trimester (principal); Z3A.34 34 weeks gestation of pregnancy
CPT/HCPCS: 36415; 59025; 80053; 84156; 85027; 87077; 87081; 87797

== ENCOUNTER 2018-12-23 09:45 | Outpatient (CLI) | payer MEDICAID ==
[2018-12-23 10:00] VITALS: BP 111/65
--- NOTE | 2018-12-24 16:07 | PROVIDER PROGRESS NOTE ---
Subjective - Subjective Subjective: S: Tired. here for NST today. No VB, no LOF. Some intermittent UC but nothing strong or regular. O: BP 111/65 Bedside US: vertex, MVP 4.15cm Category 1 NST, toco neg A/P: 28yo at 35w1d by LMP c/w 6w US, SIMON 01/27/19 CHRONIC HYPERTENSION WITHOUT HISTORY OF SUPERIMPOSED PREECLAMPSIA: pt's BPs are on the low end while on labetalol 200mg po bid. At home she ranges 110-120s/60-70. Will plan for goal BPs 140-145/90-95. MEDICATION MANAGEMENT --Drop to labetalol 100mg bid x next 2 doses. If BPs are less than 145/90 then stop the labetalol. If >145/90 then take another 100mg labetalol. --Check BPs bid --If able to be off BP meds, then continue bid BPs. Take labetalol prn BP >145/95. If BP >160/100 then take labetalol and come to triage. ANTEPARTUM MANAGEMENT --NST category 1 today & MVP today is normal. Continue 2x/w NST and weekly US --Due for growth US, will perform on 12/28 at next triage visit. EFW 53%ile with normal AC on 12/01/18. --On ASA 81mg daily --Last PIH labs were normal 12/20/18. Repeat on 12/31. --37w IOL on 01/08/19 with Franko due to chronic HTN requiring meds + multiople other medical problems. GBS+ CHRONIC HYPOKALEMIA: with K as low as 2.5. Unknown etiology, needs to see motor mechanic post delivery. Normal Cr, GFR, aldosterone, renin, 24h urine potassium, Mag, Phos, and TSH. --On KCl 20meq q3 days. --Recheck on 12/31. CHRONIC ANEMIA WITH B12 AND IRON DEFICIENCY: Hct was 28 on 12/11/18. Recheck on 12/31 --Got Venofer 300mg IV twice the week of 12/14/18 --Got B12 1000mg IM twice the week of 12/14/18 --Recheck labs on 12/31/17 and plan to give more venofer or B12 if deficient. Consider pre-delivery transfusion if Hct has dropped further. GENITAL HSV HX: is on acyclovir prophylaxis CHRONIC ANXIETY AND DEPRESSION: hopefully weaning off of labetalol will help. Zoloft made her feel poorly. Have referred to PCP and to counseling. Check Vitamin D at next blood draw. HEARTBURN on pepcid LOW BACK PAIN: is undergoing comfort care, PT has been ordered. Hx of muscle spasms in trapezius, SCM, occipital muscles, and piriformis. CHRONIC UTI and nephrolithiasis with intermittent hematuria: on nitrofurantion prophylaxis. ROUTINE OB CARE: GBS +. Rh +, s/p flu shot and tdap. Normal anatomy scan.
== END 2018-12-23 11:35 | disposition home or self-care (01) ==
LOC: WFO 09:45 → FBP 09:46 → WFO 11:35
PROVIDERS: ATTEND Obstetrics & Gynecology
DX: O10.913 Unspecified pre-existing hypertension complicating pregnancy, third trimester (principal); Z3A.35 35 weeks gestation of pregnancy; Z79.899 Other long term (current) drug therapy; Z79.82 Long term (current) use of aspirin
CPT/HCPCS: 59025

== ENCOUNTER 2018-12-28 10:47 | Outpatient (CLI) | payer MEDICAID ==
[2018-12-28 11:18] VITALS: BP 131/88
--- NOTE | 2018-12-28 12:47 | Ultrasound Report ---
Reason: chronic hypertension Procedure Date: 12/28/2018 Accession Number: [id number] / [id number] Procedure: US - OB F/U or Repeat CPT Code: FULL RESULT: EXAM: FOLLOW-UP OBSTETRICAL ULTRASOUND EXAM DATE: 12/28/2018 11:29 AM. CLINICAL HISTORY: Chronic hypertension. COMPARISON: OB F/U OR REPEAT 12/01/2018 11:28 AM OB LIMITED 12/14/2018 2:05 PM. TECHNIQUE: Real-time sonographic evaluation of the fetus performed by the [id number] armor crewman. Multiple surgical device sales representative static images were saved for review. DATING: Established EGA 35 weeks 5 days with SIMON 01/27/2019 EGA 35 weeks 4 days with SIMON 01/28/2019 based on the current ultrasound. GENERAL EVALUATION Mcwilliams . Cardiac activity: 135 bpm. Presentation: Cephalic. Placenta: Anterior right lateral position. Amniotic fluid: Normal. CADY 11.5 cm. MVP 5.1 cm. BIOMETRY Bi-Parietal Diameter (BPD): 8.5 cm, 34 weeks 1 days Head Circumference (HC): 31.8 cm, 35 weeks 6 days Abdominal Circumference (AC): 33 cm, 35 weeks 6 days Femur Length (FL): 6.9 cm, 35 weeks 2 days Estimated Weight: 2838 g, 59 percentile ANATOMY Not evaluated MATERNAL STRUCTURES Not evaluated IMPRESSION: 1. Mcwilliams live intrauterine with gestational age 35 weeks 5 days based on assigned dating 2. Estimated weight is within expected limits for assigned dating. RADIA
== END 2018-12-28 12:22 | disposition home or self-care (01) ==
LOC: WFO 10:47 → FBP 10:49 → WFO 12:22
PROVIDERS: ATTEND Obstetrics & Gynecology
DX: O13.3 Gestational [pregnancy-induced] hypertension without significant proteinuria, third trimester (principal); Z3A.36 36 weeks gestation of pregnancy
CPT/HCPCS: 59025; 76816

== ENCOUNTER 2018-12-31 10:46 | Inpatient (IN) | payer MEDICAID ==
[2018-12-31] MEDS ORDERED: LABETALOL 100 MG TABLET PO SCH (12:00)
[2018-12-31 12:03] LABS: BASOPHILS % (AUTO) 0.6 %; EOSINOPHILS # (AUTO) 0.1 10^3/uL (0.0-0.7); EOSINOPHILS % (AUTO) 0.7 %; HGB - HEMOGLOBIN 10.9 g/dL (12.0-16.0); LYMPHOCYTES # (AUTO) 1.4 10^3/uL (1.5-3.5); LYMPHOCYTES % (AUTO) 16.8 %; MEAN CORPUSCULAR HEMOGLOBIN 31.5 pg (27.0-31.0); MEAN CORPUSCULAR HGB CONC 34.7 g/dL (32.0-36.0); MEAN CORPUSCULAR VOLUME 90.5 fL (81.0-99.0); MEAN PLATELET VOLUME 7.8 fL (7.9-10.8); MONOCYTES # (AUTO) 0.5 10^3/uL (0.0-1.0); MONOCYTES % (AUTO) 5.8 %; NEUTROPHILS # (AUTO) 6.5 10^3/uL (1.5-6.6); NEUTROPHILS % (AUTO) 76.1 %; PLT - PLATELET COUNT 235 10^3/uL (130-450); RED BLOOD COUNT 3.47 10^6/uL (4.20-5.40); RED CELL DISTRIBUTION WIDTH 14.9 % (12.0-15.0); WHITE BLOOD COUNT 8.5 x10^3/uL (4.8-10.8)
[2018-12-31] MEDS ORDERED: SODIUM CHLORIDE FLUSH 0.9% 10 ML SYRINGE ONE ×2 (12:04→13:15)
[2018-12-31 12:09] LABS: CREATININE,URINE 50.3 mg/dL; PROTEIN/CREATININE RATIO,URINE 0.2 (<=0.2)
[2018-12-31 12:18] LABS: URIC ACID 4.9 mg/dL (2.6-7.2)
[2018-12-31] MEDS ORDERED: ceFAZolin 2 GM/50 ML 2 GM/50 ML BAG IV ONE (12:59)
[2018-12-31] MEDS ORDERED: SODIUM CHLORIDE FLUSH 0.9% 10 ML SYRINGE IVP PRN (12:59)
[2018-12-31] MEDS ORDERED: LACTATED RINGERS 1,000 ML IV SCH (13:00)
[2018-12-31 13:03] LABS: ALBUMIN 3.3 g/dL (3.2-5.5); ALKALINE PHOSPHATASE 134 IU/L (42-121); ALT ALANINE AMINOTRANSFERASE 14 IU/L (10-60); AST ASPARTATE AMINOTRANSFERASE 22 IU/L (10-42); BILIRUBIN,TOTAL 0.8 mg/dL (0.2-1.0); BUN - BLOOD UREA NITROGEN < 5 mg/dL (6-20); CALCIUM 8.7 mg/dL (8.5-10.3); CARBON DIOXIDE - CO2 22 mmol/L (21-32); CHLORIDE 101 mmol/L (101-111); CREATININE 0.4 mg/dL (0.4-1.0); GFR - MDRD 189 (>89); GLUCOSE 94 mg/dL (70-100); IRON 85 ug/dL (28-170); SODIUM 134 mmol/L (135-145); TOTAL PROTEIN 6.5 g/dL (6.7-8.2)
[2018-12-31] MEDS ORDERED: LACTATED RINGERS 1,000 ML IV ONE ×2 (13:10→13:14)
[2018-12-31] MEDS ORDERED: MAGNESIUM SULFATE IN WATER 20 GM/500 ML IV.SOLN IV ONE (13:15)
[2018-12-31] MEDS ORDERED: MAGNESIUM SULFATE 2 GRAM 6 GM/150 ML BAG IV ONE (13:15)
[2018-12-31] MEDS ORDERED: OXYTOCIN/SODIUM CHLORIDE 500 ML IV ONE (13:16)
[2018-12-31] MEDS: MAGNESIUM SULFATE 2 GRAM 2 GM/50 ML BAG IV SCH ×3 (13:20→14:02)
[2018-12-31 13:39] LABS: BASOPHILS # (AUTO) 0.1 10^3/uL (0.0-0.1); BASOPHILS % (AUTO) 0.6 %; EOSINOPHILS # (AUTO) 0.1 10^3/uL (0.0-0.7); EOSINOPHILS % (AUTO) 0.6 %; HGB - HEMOGLOBIN 10.3 g/dL (12.0-16.0); LYMPHOCYTES # (AUTO) 1.3 10^3/uL (1.5-3.5); LYMPHOCYTES % (AUTO) 15.1 %; MEAN CORPUSCULAR HGB CONC 35.4 g/dL (32.0-36.0); MEAN CORPUSCULAR VOLUME 90.2 fL (81.0-99.0); MEAN PLATELET VOLUME 7.9 fL (7.9-10.8); MONOCYTES # (AUTO) 0.6 10^3/uL (0.0-1.0); MONOCYTES % (AUTO) 6.7 %; NEUTROPHILS # (AUTO) 6.9 10^3/uL (1.5-6.6); PLT - PLATELET COUNT 235 10^3/uL (130-450); RED BLOOD COUNT 3.24 10^6/uL (4.20-5.40); RED CELL DISTRIBUTION WIDTH 15.1 % (12.0-15.0); WHITE BLOOD COUNT 8.9 x10^3/uL (4.8-10.8)
[2018-12-31] MEDS ORDERED: hydrALAZINE INJ 20 MG/ML VIAL IVP ONE (13:48)
[2018-12-31] MEDS ORDERED: hydrALAZINE INJ 20 MG/ML VIAL ONE (13:56)
[2018-12-31] MEDS: MAGNESIUM SULFATE IN WATER 20 GM/500 ML IV.SOLN IV SCH (14:23)
[2018-12-31] MEDS ORDERED: OXYTOCIN/SODIUM CHLORIDE 500 ML IV SCH (15:00)
--- NOTE | 2018-12-31 16:27 | HISTORY & PHYSICAL EXAMINATION ---
Chief Complaint - Chief Complaint Chief Complaint: HEADACHES AND BLURRED VISION History of Present Illness - Admitted From Admitted From:: HOME - History Obtained From Records Reviewed: YES History obtained from: PATIENT Exam Limitations: NONE - History of Present Illness HPI Comment/Other: 28 y.o. EDC 01/27/19, EGA 36 1/7 weeks based on LMP and first trimester US. Patient was admitted today with dx of chronic hypertension with superimposed preeclampsia with severe features of persistent h/a and blurred vision, new in onset, since 0900 hours. Patient has been on labetolol throughout , but h/a and blurred vision sx are new. BPs also noted to be elevated today during routine NST monitoring and labwork. Patient was scheduled for IOL at 37 weeks. She is GBS POS requiring IV ABX prophylaxis. BP on presentation for NST was 151/101 range. Shortly after admission and starting IV magnesium sulfate, bp spiked to 170/110 which responded to 10 mg IV hydralazine. Patient started on IV magnesium sulfate prophylaxis, Ancef for GBS prophylaxis and IV pitocin for IOL. Cx exam on admission /-3/vtx/post/mod: Hopkins Score 5. Category I FHR tracing on admission. OB growth scan 12/28/17 = 2,838 gms (59%ile). Course: # Chronic Hypokalemia: K as low as 2.5, unknown etiology. Needs to see internis . Normal Cr, GFR, aldosterone, renin, 24h urine K, Mag, Phos, TSH # Chronic Anemia with B12 & Fe Deficiency: Venefor 300 mg IV twice week of 12/14/18. B12 1,000 mg IM twice week of 12/14/18. 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 Followed by PCP. # Hx Chronic UTI and Nephrolithiasis: Right renal colic as late as 22 weeks, suddenly stopped, macrodantin prophylaxis which she stopped 1 month ago. # CHTN on labetolol for most of : lately has been taking 100 mg prn due to well controlled bp at home. OB Hx: x 2 at 39 weeks, largest 8 lbs. 1 onz. PMH: HTN (Lisinopril 10 mg for several months before this , prior to that she took HCTZ) PSH: Neg SHx: Neg Smoke/ETOH/Drugs Meds: Acyclovir, PNV, KCL 20 mEq q3d Immunizations: Influenza 06/22/2018. TDAP 11/17/18. 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: None : reports: Kidney stones, Other (SEE HPI) HEENT: reports: None Psych: reports: None (SEE HPI), Anxiety Musculoskeletal: reports: None Derm: reports: None MRSA Hx?: No - Past Surgical History Other past surgical history: PSH NEG - Substance History Use: Uses substance without health or social issues: NONE - POLST Patient has POLST: No Meds/Allgy - Home Medications Home Medications: Ambulatory Orders Medication Instructions Recorded Confirmed Labetalol [Trandate] 100 mg PO 06/08/18 06/08/18 Vitamin [Trinatal Rx 1] 07/02/18 - Allergies Allergies/Adverse Reactions: Allergies Allergy/AdvReac Type Severity Reaction Status Date / Time amoxicillin AdvReac tightness Verified 12/31/18 17:42 in throat Review of Systems - Neurological Neurological: reports: Headache, Other (BLURRED VISION) Exam - Vital Signs Reviewed Vital Signs: Yes Vital Signs: Vital Signs x48h Temp Pulse Resp BP BP 12/31/18 13:55 151/102 H 12/31/18 12:30 98 168/101 H 12/31/18 12:00 99 146/102 H 12/31/18 11:22 36.8 C 105 H 18 148/104 H - Physical Exam General Appearance: positive: Mild distress ENT: positive: ENT inspection nml Neck: positive: Nml inspection Respiratory: positive: Chest non-tender, No respiratory distress, Breath sounds nml Cardiovascular: positive: Regular rate & rhythm, No murmur Peripheral Pulses: positive: 2+ Abdomen: positive: Non-tender, No organomegaly (CX 2/30/-3/VTX/BOWI) Back: positive: Nml inspection Skin: positive: Color nml, No rash, Warm Extremities: positive: Non-tender, Full ROM Neurologic/Psychiatric: positive: Oriented x3, CN's nml (2-12), Motor nml Conclusion/Plan - Problem List (1) Chronic hypertension with superimposed preeclampsia Conclusion/Plan: # 36 1/7 weeks with CHTN on low dose labetolol with superimposed preeclampsia, [employer] Sx of h/a and blurred vision, bp 170/110 requring IV hydralazine 10 mg to control. Admitted for IOL Cx /-3/BOWI on admission. Will use IV pitocin. See orders. # IV Magnesium Sulfate for seizure prophylaxis. # +GBS: Ancef for prophylaxis # IV anti-hypertensive prn for bp in severe range # Patient requesting epidural for labor analgesia # Hx of Fe deficiency anemia: HCT 31% on admission. - Lab Results Fish Bones: 12/31/18 13:28 12/31/18 11:52
[2018-12-31] MEDS ORDERED: hydrALAZINE INJ 20 MG/ML VIAL IVP SCH (19:08)
[2018-12-31] MEDS ORDERED: ONDANSETRON 4 MG/2 ML VIAL IVP PRN ×2 (19:33→21:17)
[2018-12-31] MEDS ORDERED: ONDANSETRON 4 MG/2 ML VIAL ONE (19:35)
--- NOTE | 2018-12-31 19:45 | PROVIDER PROGRESS NOTE ---
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 Has received 2nd dose of hydralazine 10 mg (1st dose at admission) for bp 164/108. Cx 2/50/-3/VTX/BOWI. Category I FHR tracing. Will proceed with AROM now to shorten length of labor. Objective - Vital Signs/Intake & Output Vital Signs: Vital Signs x48h Pulse BP BP 12/31/18 13:55 151/102 H 12/31/18 12:30 98 168/101 H 12/31/18 12:00 99 146/102 H Intake & Output: Intake & Output 12/28/18 12/29/18 12/30/18 12/31/18 23:59 23:59 23:59 23:59 Intake Total 220 Output Total 551 Balance -331 - Lab Results Fish Bones: 12/31/18 13:28 12/31/18 11:52 Other Labs: Lab Results x24hrs 12/31/18 12/31/18 12/31/18 Range/Units 13:28 13:28 11:53 WBC 8.9 (4.8-10.8) x10^3/uL RBC 3.24 L (4.20-5.40) 10^6/uL Hgb 10.3 L (12.0-16.0) g/dL Hct 29.2 L (37.0-47.0) % MCV 90.2 (81.0-99.0) fL MCH 32.0 H (27.0-31.0) pg MCHC 35.4 (32.0-36.0) g/dL RDW 15.1 H (12.0-15.0) % Plt Count 235 (130-450) 10^3/uL MPV 7.9 (7.9-10.8) fL Neut # (Auto) 6.9 H (1.5-6.6) 10^3/uL Lymph # (Auto) 1.3 L (1.5-3.5) 10^3/uL [place] # (Auto) 0.6 (0.0-1.0) 10^3/uL Eos # (Auto) 0.1 (0.0-0.7) 10^3/uL Baso # (Auto) 0.1 (0.0-0.1) 10^3/uL Absolute Nucleated RBC 0.01 x10^3/uL Nucleated RBC % 0.1 /100WBC Sodium (135-145) mmol/L Potassium (3.5-5.0) mmol/L Chloride (101-111) mmol/L Carbon Dioxide (21-32) mmol/L Anion Gap (6-13) BUN (6-20) mg/dL Creatinine (0.4-1.0) mg/dL Estimated GFR (MDRD) (>89) Glucose (70-100) mg/dL Uric Acid (2.6-7.2) mg/dL Calcium (8.5-10.3) mg/dL Iron (28-170) ug/dL Total Bilirubin (0.2-1.0) mg/dL AST (10-42) IU/L ALT (10-60) IU/L Alkaline Phosphatase (42-121) IU/L Lactate Dehydrogenase (91-225) IU/L Total Protein (6.7-8.2) g/dL Albumin (3.2-5.5) g/dL Globulin (2.1-4.2) g/dL Albumin/Globulin Ratio (1.0-2.2) Vitamin B12 (180-914) pg/mL Urine Creatinine 50.3 mg/dL Ur Total Protein Timed 8 mg/dL Protein/Creatinin Ratio 0.2 (<=0.2) Blood Type AB POSITIVE Antibody Screen NEGATIVE 12/31/18 12/31/18 12/31/18 Range/Units 11:52 11:52 11:52 WBC 8.5 (4.8-10.8) x10^3/uL RBC 3.47 L (4.20-5.40) 10^6/uL Hgb 10.9 L (12.0-16.0) g/dL Hct 31.4 L (37.0-47.0) % MCV 90.5 (81.0-99.0) fL MCH 31.5 H (27.0-31.0) pg MCHC 34.7 (32.0-36.0) g/dL RDW 14.9 (12.0-15.0) % Plt Count 235 (130-450) 10^3/uL MPV 7.8 L (7.9-10.8) fL Neut # (Auto) 6.5 (1.5-6.6) 10^3/uL Lymph # (Auto) 1.4 L (1.5-3.5) 10^3/uL [place] # (Auto) 0.5 (0.0-1.0) 10^3/uL Eos # (Auto) 0.1 (0.0-0.7) 10^3/uL Baso # (Auto) 0.0 (0.0-0.1) 10^3/uL Absolute Nucleated RBC 0.00 x10^3/uL Nucleated RBC % 0.0 /100WBC Sodium (135-145) mmol/L Potassium (3.5-5.0) mmol/L Chloride (101-111) mmol/L Carbon Dioxide (21-32) mmol/L Anion Gap (6-13) BUN (6-20) mg/dL Creatinine (0.4-1.0) mg/dL Estimated GFR (MDRD) (>89) Glucose (70-100) mg/dL Uric Acid 4.9 (2.6-7.2) mg/dL Calcium (8.5-10.3) mg/dL Iron (28-170) ug/dL Total Bilirubin (0.2-1.0) mg/dL AST 21 (10-42) IU/L ALT (10-60) IU/L Alkaline Phosphatase (42-121) IU/L Lactate Dehydrogenase 133 (91-225) IU/L Total Protein (6.7-8.2) g/dL Albumin (3.2-5.5) g/dL Globulin (2.1-4.2) g/dL Albumin/Globulin Ratio (1.0-2.2) Vitamin B12 (180-914) pg/mL Urine Creatinine mg/dL Ur Total Protein Timed mg/dL Protein/Creatinin Ratio (<=0.2) Blood Type Antibody Screen 12/31/18 12/31/18 Range/Units 11:52 11:52 WBC (4.8-10.8) x10^3/uL RBC (4.20-5.40) 10^6/uL Hgb (12.0-16.0) g/dL Hct (37.0-47.0) % MCV (81.0-99.0) fL MCH (27.0-31.0) pg MCHC (32.0-36.0) g/dL RDW (12.0-15.0) % Plt Count (130-450) 10^3/uL MPV (7.9-10.8) fL Neut # (Auto) (1.5-6.6) 10^3/uL Lymph # (Auto) (1.5-3.5) 10^3/uL [place] # (Auto) (0.0-1.0) 10^3/uL Eos # (Auto) (0.0-0.7) 10^3/uL Baso # (Auto) (0.0-0.1) 10^3/uL Absolute Nucleated RBC x10^3/uL Nucleated RBC % /100WBC Sodium 134 L (135-145) mmol/L Potassium 3.1 L (3.5-5.0) mmol/L Chloride 101 (101-111) mmol/L Carbon Dioxide 22 (21-32) mmol/L Anion Gap 11.0 (6-13) BUN < 5 L (6-20) mg/dL Creatinine 0.4 (0.4-1.0) mg/dL Estimated GFR (MDRD) 189 (>89) Glucose 94 (70-100) mg/dL Uric Acid (2.6-7.2) mg/dL Calcium 8.7 (8.5-10.3) mg/dL Iron 85 (28-170) ug/dL Total Bilirubin 0.8 (0.2-1.0) mg/dL AST 22 (10-42) IU/L ALT 14 (10-60) IU/L Alkaline Phosphatase 134 H (42-121) IU/L Lactate Dehydrogenase (91-225) IU/L Total Protein 6.5 L (6.7-8.2) g/dL Albumin 3.3 (3.2-5.5) g/dL Globulin 3.2 (2.1-4.2) g/dL Albumin/Globulin Ratio 1.0 (1.0-2.2) Vitamin B12 254 (180-914) pg/mL Urine Creatinine mg/dL Ur Total Protein Timed mg/dL Protein/Creatinin Ratio (<=0.2) Blood Type Antibody Screen
--- NOTE | 2018-12-31 20:04 | PROVIDER PROGRESS NOTE ---
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 Category I FHR tracing with contractions q2-3 min on 20 miU pitocin. Cx 2/50/-3/VTX/BOWI. AROM clear performed and internals x 2 placed. ANS called for epidural. Condition explained to patient and spouse and all questions answered. Objective - Vital Signs/Intake & Output Vital Signs: Vital Signs x48h Pulse BP BP 12/31/18 13:55 151/102 H 12/31/18 12:30 98 168/101 H Intake & Output: Intake & Output 12/28/18 12/29/18 12/30/18 12/31/18 23:59 23:59 23:59 23:59 Intake Total 220 Output Total 551 Balance -331 - Lab Results Fish Bones: 12/31/18 13:28 12/31/18 11:52 Other Labs: Lab Results x24hrs 12/31/18 12/31/18 12/31/18 Range/Units 13:28 13:28 11:53 WBC 8.9 (4.8-10.8) x10^3/uL RBC 3.24 L (4.20-5.40) 10^6/uL Hgb 10.3 L (12.0-16.0) g/dL Hct 29.2 L (37.0-47.0) % MCV 90.2 (81.0-99.0) fL MCH 32.0 H (27.0-31.0) pg MCHC 35.4 (32.0-36.0) g/dL RDW 15.1 H (12.0-15.0) % Plt Count 235 (130-450) 10^3/uL MPV 7.9 (7.9-10.8) fL Neut # (Auto) 6.9 H (1.5-6.6) 10^3/uL Lymph # (Auto) 1.3 L (1.5-3.5) 10^3/uL [place] # (Auto) 0.6 (0.0-1.0) 10^3/uL Eos # (Auto) 0.1 (0.0-0.7) 10^3/uL Baso # (Auto) 0.1 (0.0-0.1) 10^3/uL Absolute Nucleated RBC 0.01 x10^3/uL Nucleated RBC % 0.1 /100WBC Sodium (135-145) mmol/L Potassium (3.5-5.0) mmol/L Chloride (101-111) mmol/L Carbon Dioxide (21-32) mmol/L Anion Gap (6-13) BUN (6-20) mg/dL Creatinine (0.4-1.0) mg/dL Estimated GFR (MDRD) (>89) Glucose (70-100) mg/dL Uric Acid (2.6-7.2) mg/dL Calcium (8.5-10.3) mg/dL Iron (28-170) ug/dL Total Bilirubin (0.2-1.0) mg/dL AST (10-42) IU/L ALT (10-60) IU/L Alkaline Phosphatase (42-121) IU/L Lactate Dehydrogenase (91-225) IU/L Total Protein (6.7-8.2) g/dL Albumin (3.2-5.5) g/dL Globulin (2.1-4.2) g/dL Albumin/Globulin Ratio (1.0-2.2) Vitamin B12 (180-914) pg/mL Urine Creatinine 50.3 mg/dL Ur Total Protein Timed 8 mg/dL Protein/Creatinin Ratio 0.2 (<=0.2) Blood Type AB POSITIVE Antibody Screen NEGATIVE 12/31/18 12/31/18 12/31/18 Range/Units 11:52 11:52 11:52 WBC 8.5 (4.8-10.8) x10^3/uL RBC 3.47 L (4.20-5.40) 10^6/uL Hgb 10.9 L (12.0-16.0) g/dL Hct 31.4 L (37.0-47.0) % MCV 90.5 (81.0-99.0) fL MCH 31.5 H (27.0-31.0) pg MCHC 34.7 (32.0-36.0) g/dL RDW 14.9 (12.0-15.0) % Plt Count 235 (130-450) 10^3/uL MPV 7.8 L (7.9-10.8) fL Neut # (Auto) 6.5 (1.5-6.6) 10^3/uL Lymph # (Auto) 1.4 L (1.5-3.5) 10^3/uL [place] # (Auto) 0.5 (0.0-1.0) 10^3/uL Eos # (Auto) 0.1 (0.0-0.7) 10^3/uL Baso # (Auto) 0.0 (0.0-0.1) 10^3/uL Absolute Nucleated RBC 0.00 x10^3/uL Nucleated RBC % 0.0 /100WBC Sodium (135-145) mmol/L Potassium (3.5-5.0) mmol/L Chloride (101-111) mmol/L Carbon Dioxide (21-32) mmol/L Anion Gap (6-13) BUN (6-20) mg/dL Creatinine (0.4-1.0) mg/dL Estimated GFR (MDRD) (>89) Glucose (70-100) mg/dL Uric Acid 4.9 (2.6-7.2) mg/dL Calcium (8.5-10.3) mg/dL Iron (28-170) ug/dL Total Bilirubin (0.2-1.0) mg/dL AST 21 (10-42) IU/L ALT (10-60) IU/L Alkaline Phosphatase (42-121) IU/L Lactate Dehydrogenase 133 (91-225) IU/L Total Protein (6.7-8.2) g/dL Albumin (3.2-5.5) g/dL Globulin (2.1-4.2) g/dL Albumin/Globulin Ratio (1.0-2.2) Vitamin B12 (180-914) pg/mL Urine Creatinine mg/dL Ur Total Protein Timed mg/dL Protein/Creatinin Ratio (<=0.2) Blood Type Antibody Screen 12/31/18 12/31/18 Range/Units 11:52 11:52 WBC (4.8-10.8) x10^3/uL RBC (4.20-5.40) 10^6/uL Hgb (12.0-16.0) g/dL Hct (37.0-47.0) % MCV (81.0-99.0) fL MCH (27.0-31.0) pg MCHC (32.0-36.0) g/dL RDW (12.0-15.0) % Plt Count (130-450) 10^3/uL MPV (7.9-10.8) fL Neut # (Auto) (1.5-6.6) 10^3/uL Lymph # (Auto) (1.5-3.5) 10^3/uL [place] # (Auto) (0.0-1.0) 10^3/uL Eos # (Auto) (0.0-0.7) 10^3/uL Baso # (Auto) (0.0-0.1) 10^3/uL Absolute Nucleated RBC x10^3/uL Nucleated RBC % /100WBC Sodium 134 L (135-145) mmol/L Potassium 3.1 L (3.5-5.0) mmol/L Chloride 101 (101-111) mmol/L Carbon Dioxide 22 (21-32) mmol/L Anion Gap 11.0 (6-13) BUN < 5 L (6-20) mg/dL Creatinine 0.4 (0.4-1.0) mg/dL Estimated GFR (MDRD) 189 (>89) Glucose 94 (70-100) mg/dL Uric Acid (2.6-7.2) mg/dL Calcium 8.7 (8.5-10.3) mg/dL Iron 85 (28-170) ug/dL Total Bilirubin 0.8 (0.2-1.0) mg/dL AST 22 (10-42) IU/L ALT 14 (10-60) IU/L Alkaline Phosphatase 134 H (42-121) IU/L Lactate Dehydrogenase (91-225) IU/L Total Protein 6.5 L (6.7-8.2) g/dL Albumin 3.3 (3.2-5.5) g/dL Globulin 3.2 (2.1-4.2) g/dL Albumin/Globulin Ratio 1.0 (1.0-2.2) Vitamin B12 254 (180-914) pg/mL Urine Creatinine mg/dL Ur Total Protein Timed mg/dL Protein/Creatinin Ratio (<=0.2) Blood Type Antibody Screen
[2018-12-31] MEDS ORDERED: fent/BUPIV 2 MCG/0.125% 250 ML EP ONE (20:17)
[2018-12-31] MEDS ORDERED: ceFAZolin 1 GM in SODIUM CHLORIDE 0.9% MINIBAG 100 ML IV SCH (21:00)
[2018-12-31] MEDS ORDERED: diphenhydrAMINE INJ 50 MG/ML VIAL IVP PRN (21:17)
[2018-12-31] MEDS ORDERED: NALBUPHINE 10 MG/ML AMP IVP PRN (21:17)
[2018-12-31] MEDS ORDERED: fent/BUPIV 2 MCG/0.125% 250 ML EP PRN (21:17)
--- NOTE | 2018-12-31 21:22 | ANESTHESIA ---
Pre-Anesthesia VS, & Labs - Diagnosis IUP/Term labor - Procedure KIRA placement Vital Signs: Temp Pulse Resp BP Pulse Ox 36.8 C 98 18 151/102 H 12/31/18 11:22 12/31/18 12:30 12/31/18 11:22 12/31/18 13:55 Height 5 ft 1 in Weight (kg) 58.513 kg Body Mass Index 20.0 - NPO Last Fluid Intake: t/o day - Is Patient ?: Yes - Lab Results Current Lab Results: Laboratory Tests 12/31/18 13:28: Blood Type AB POSITIVE, Antibody Screen NEGATIVE 12/31/18 13:28: WBC 8.9, RBC 3.24 L, Hgb 10.3 L, Hct 29.2 L, MCV 90.2, MCH 32.0 H, MCHC 35.4, RDW 15.1 H, Plt Count 235, MPV 7.9, Neut # (Auto) 6.9 H, Lymph # (Auto) 1.3 L, [place] # (Auto) 0.6, Eos # (Auto) 0.1, Baso # (Auto) 0.1, Absolute Nucleated RBC 0.01, Nucleated RBC % 0.1 12/31/18 11:52: Uric Acid 4.9, AST 21 12/31/18 11:52: WBC 8.5, RBC 3.47 L, Hgb 10.9 L, Hct 31.4 L, MCV 90.5, MCH 31.5 H, MCHC 34.7, RDW 14.9, Plt Count 235, MPV 7.8 L, Neut # (Auto) 6.5, Lymph # (Auto) 1.4 L, [place] # (Auto) 0.5, Eos # (Auto) 0.1, Baso # (Auto) 0.0, Absolute N ucleated RBC 0.00, Nucleated RBC % 0.0 12/31/18 11:52: Lactate Dehydrogenase 133 12/31/18 11:52: Vitamin B12 254 12/31/18 11:52: Sodium 134 L, Potassium 3.1 L, Chloride 101, Carbon Dioxide 22, Anion Gap 11.0, BUN < 5 L, Creatinine 0.4, Estimated GFR (MDRD) 189, Glucose 94, Calcium 8.7, Iron 85, Total Bilirubin 0.8, AST 22, ALT 14, Alkaline Phosphatase 134 H, Total Protein 6.5 L, Albumin 3.3, Globulin 3.2, Albumin/Globulin Ratio 1.0 Lab results reviewed: Yes Fish Bones: 12/31/18 13:28 12/31/18 11:52 Home Medications and Allergies Active Medications Diphenhydramine HCl (Benadryl Inj) 12.5 - 25 mg IVP Q6HR PRN PRN Reason: ITCHING Hydralazine HCl (Apresoline Inj) 10 mg IVP ONCE [facility] Stop: 12/31/18 23:59 Last Admin: 12/31/18 19:11 Dose: 10 mg Magnesium Sulfate (Magnesium Sulf 20 G/500 Ml Bag) 20 gm in 500 mls @ 50 mls/hr IV .Q10H MAYELIN Last Admin: 12/31/18 14:23 Dose: 2 gm/hr, 50 mls/hr Cefazolin Sodium 1 gm/ Sodium (Chloride) 100 mls @ 200 mls/hr IV Q8H MAYELIN Lactated Ringer's (Lr) 1,000 mls @ 125 mls/hr IV .Q8H [facility] Last Admin: 12/31/18 13:20 Dose: 50 mls/hr Oxytocin/Sodium Chloride (Pitocin/Sodium Chloride) 500 mls @ 1 mls/hr IV TITR MAYELIN; Protocol Last Admin: 12/31/18 14:12 Dose: 1 milliunit/min, 1 mls/hr Fentanyl/Bupivacaine/Sodium Chlor (Fent/Bupiv 2 Mcg/0.125%) 250 mls @ 0 mls/hr EP .Q0M PRN; Protocol PRN Reason: PAIN Nalbuphine HCl (Nubain) 2.5 - 5 mg IVP Q4H PRN PRN Reason: Severe Itching Ondansetron HCl (Zofran Inj) 4 mg IVP Q4HR PRN PRN Reason: Nausea / Vomiting Last Admin: 12/31/18 19:37 Dose: 4 mg Ondansetron HCl (Zofran Inj) 4 mg IVP Q6HR PRN PRN Reason: Nausea / Vomiting Ranitidine HCl (Zantac) 150 mg PO DAILY [facility] Last Admin: 12/31/18 14:11 Dose: 150 mg Sodium Chloride (Normal Saline Flush 0.9%) 10 ml IVP PRN PRN PRN Reason: NEEDED PER PROVIDER ORDERS Sodium Chloride (Normal Saline Flush 0.9%) 10 ml IVP 0100,0900,1700 MAYELIN Labetalol [Trandate] 100 mg PO 06/08/18 Vitamin [Trinatal Rx 1] 07/02/18 Allergies/Adverse Reactions: Allergies Allergy/AdvReac Type Severity Reaction Status Date / Time amoxicillin AdvReac tightness Verified 12/31/18 17:42 in throat Anes History & Medical History - Anesthetic History Anesthesia Complications: reports: No previous complications Family history of Anesthesia Complications: Denies Family history of Malignant Hyperthermia: Denies - Medical History Cardiovascular: reports: Hypertension Pulmonary: reports: None, Other Gastrointestinal: reports: None Urinary: reports: Kidney stones, Other (SEE HPI) Neuro: reports: None, Other Musculoskeletal: reports: None Endocrine/Autoimmune: reports: None (SEE HPI), Other Blood Disorders: reports: None Skin: reports: None Smoking Status: Never smoker - Surgical History Other Past Surgical History: PSH NEG Exam General: Alert, Oriented x3, Cooperative Dental: WNL Mouth Openin Fingerbreadth Neck Mobility: Normal Mallampati classification: II Thyromental Distance: 4-6 cm Respiratory: No respiratory distress Cardiovascular: Regular rate (tachy) Cognitive Status: Within normal limits Plan Anesthesia Type: Epidural Consent for Procedure(s) Verified and Reviewed: Yes Code Status: Attempt Resuscitation ASA classification: 2-Mild systemic disease Is this case an emergency?: No
--- NOTE | 2019-01-01 00:27 | PROVIDER PROGRESS NOTE ---
Subjective - Prog Note Date Prog Note Date: 01/01/19 Prog Note Time: 00:20 - Subjective Pt reports feeling: Improved Subjective: BP 133/72. Cx exam at 00:15 hours 2/80/-2, with Category I FHR tracing, on 24 miU pitocin at 230 MVU and adequate contractions. Patient feeling much less nauseated on 1 gram/hour of Magnesium Sulfate (decreased due to patient sx of n/v and difficulty in achieving adequate contractions as well as low maternal weight of 58.5 kg). Continue present care. Repeat CBC and PIH panel this AM. Objective - Vital Signs/Intake & Output Intake & Output: Intake & Output 12/29/18 12/30/18 12/31/18 01/01/19 23:59 23:59 23:59 23:59 Intake Total 220 Output Total 551 Balance -331 - Lab Results Fish Bones: 12/31/18 13:28 12/31/18 11:52 Other Labs: Lab Results x24hrs 12/31/18 12/31/18 12/31/18 Range/Units 13:28 13:28 11:53 WBC 8.9 (4.8-10.8) x10^3/uL RBC 3.24 L (4.20-5.40) 10^6/uL Hgb 10.3 L (12.0-16.0) g/dL Hct 29.2 L (37.0-47.0) % MCV 90.2 (81.0-99.0) fL MCH 32.0 H (27.0-31.0) pg MCHC 35.4 (32.0-36.0) g/dL RDW 15.1 H (12.0-15.0) % Plt Count 235 (130-450) 10^3/uL MPV 7.9 (7.9-10.8) fL Neut # (Auto) 6.9 H (1.5-6.6) 10^3/uL Lymph # (Auto) 1.3 L (1.5-3.5) 10^3/uL [place] # (Auto) 0.6 (0.0-1.0) 10^3/uL Eos # (Auto) 0.1 (0.0-0.7) 10^3/uL Baso # (Auto) 0.1 (0.0-0.1) 10^3/uL Absolute Nucleated RBC 0.01 x10^3/uL Nucleated RBC % 0.1 /100WBC Sodium (135-145) mmol/L Potassium (3.5-5.0) mmol/L Chloride (101-111) mmol/L Carbon Dioxide (21-32) mmol/L Anion Gap (6-13) BUN (6-20) mg/dL Creatinine (0.4-1.0) mg/dL Estimated GFR (MDRD) (>89) Glucose (70-100) mg/dL Uric Acid (2.6-7.2) mg/dL Calcium (8.5-10.3) mg/dL Iron (28-170) ug/dL Total Bilirubin (0.2-1.0) mg/dL AST (10-42) IU/L ALT (10-60) IU/L Alkaline Phosphatase (42-121) IU/L Lactate Dehydrogenase (91-225) IU/L Total Protein (6.7-8.2) g/dL Albumin (3.2-5.5) g/dL Globulin (2.1-4.2) g/dL Albumin/Globulin Ratio (1.0-2.2) Vitamin B12 (180-914) pg/mL Urine Creatinine 50.3 mg/dL Ur Total Protein Timed 8 mg/dL Protein/Creatinin Ratio 0.2 (<=0.2) Blood Type AB POSITIVE Antibody Screen NEGATIVE 12/31/18 12/31/18 12/31/18 Range/Units 11:52 11:52 11:52 WBC 8.5 (4.8-10.8) x10^3/uL RBC 3.47 L (4.20-5.40) 10^6/uL Hgb 10.9 L (12.0-16.0) g/dL Hct 31.4 L (37.0-47.0) % MCV 90.5 (81.0-99.0) fL MCH 31.5 H (27.0-31.0) pg MCHC 34.7 (32.0-36.0) g/dL RDW 14.9 (12.0-15.0) % Plt Count 235 (130-450) 10^3/uL MPV 7.8 L (7.9-10.8) fL Neut # (Auto) 6.5 (1.5-6.6) 10^3/uL Lymph # (Auto) 1.4 L (1.5-3.5) 10^3/uL Mcdonald # (Auto) 0.5 (0.0-1.0) 10^3/uL Eos # (Auto) 0.1 (0.0-0.7) 10^3/uL Baso # (Auto) 0.0 (0.0-0.1) 10^3/uL Absolute Nucleated RBC 0.00 x10^3/uL Nucleated RBC % 0.0 /100WBC Sodium (135-145) mmol/L Potassium (3.5-5.0) mmol/L Chloride (101-111) mmol/L Carbon Dioxide (21-32) mmol/L Anion Gap (6-13) BUN (6-20) mg/dL Creatinine (0.4-1.0) mg/dL Estimated GFR (MDRD) (>89) Glucose (70-100) mg/dL Uric Acid 4.9 (2.6-7.2) mg/dL Calcium (8.5-10.3) mg/dL Iron (28-170) ug/dL Total Bilirubin (0.2-1.0) mg/dL AST 21 (10-42) IU/L ALT (10-60) IU/L Alkaline Phosphatase (42-121) IU/L Lactate Dehydrogenase 133 (91-225) IU/L Total Protein (6.7-8.2) g/dL Albumin (3.2-5.5) g/dL Globulin (2.1-4.2) g/dL Albumin/Globulin Ratio (1.0-2.2) Vitamin B12 (180-914) pg/mL Urine Creatinine mg/dL Ur Total Protein Timed mg/dL Protein/Creatinin Ratio (<=0.2) Blood Type Antibody Screen 12/31/18 12/31/18 Range/Units 11:52 11:52 WBC (4.8-10.8) x10^3/uL RBC (4.20-5.40) 10^6/uL Hgb (12.0-16.0) g/dL Hct (37.0-47.0) % MCV (81.0-99.0) fL MCH (27.0-31.0) pg MCHC (32.0-36.0) g/dL RDW (12.0-15.0) % Plt Count (130-450) 10^3/uL MPV (7.9-10.8) fL Neut # (Auto) (1.5-6.6) 10^3/uL Lymph # (Auto) (1.5-3.5) 10^3/uL Mcdonald # (Auto) (0.0-1.0) 10^3/uL Eos # (Auto) (0.0-0.7) 10^3/uL Baso # (Auto) (0.0-0.1) 10^3/uL Absolute Nucleated RBC x10^3/uL Nucleated RBC % /100WBC Sodium 134 L (135-145) mmol/L Potassium 3.1 L (3.5-5.0) mmol/L Chloride 101 (101-111) mmol/L Carbon Dioxide 22 (21-32) mmol/L Anion Gap 11.0 (6-13) BUN < 5 L (6-20) mg/dL Creatinine 0.4 (0.4-1.0) mg/dL Estimated GFR (MDRD) 189 (>89) Glucose 94 (70-100) mg/dL Uric Acid (2.6-7.2) mg/dL Calcium 8.7 (8.5-10.3) mg/dL Iron 85 (28-170) ug/dL Total Bilirubin 0.8 (0.2-1.0) mg/dL AST 22 (10-42) IU/L ALT 14 (10-60) IU/L Alkaline Phosphatase 134 H (42-121) IU/L Lactate Dehydrogenase (91-225) IU/L Total Protein 6.5 L (6.7-8.2) g/dL Albumin 3.3 (3.2-5.5) g/dL Globulin 3.2 (2.1-4.2) g/dL Albumin/Globulin Ratio 1.0 (1.0-2.2) Vitamin B12 254 (180-914) pg/mL Urine Creatinine mg/dL Ur Total Protein Timed mg/dL Protein/Creatinin Ratio (<=0.2) Blood Type Antibody Screen
[2019-01-01] MEDS: MAGNESIUM SULFATE IN WATER 20 GM/500 ML IV.SOLN IV SCH ×2 (02:50→22:58)
--- NOTE | 2019-01-01 02:53 | PROVIDER PROGRESS NOTE ---
Subjective - Prog Note Date Prog Note Date: 01/01/19 Prog Note Time: 02:53 - Subjective Subjective: BP 128/80. On 24 miU pitocin. Category I FHR tracing, with adequate uterine contractions q2-3 mins. Patient complaining of increased pressure. Cx 4/90/0 at 0240 hours. Continue present care. Repeat CBC and pih panel at 0400. Objective - Vital Signs/Intake & Output Intake & Output: Intake & Output 12/29/18 12/30/18 12/31/18 01/01/19 23:59 23:59 23:59 23:59 Intake Total 220 Output Total 551 Balance -331 - Lab Results Fish Bones: 12/31/18 13:28 12/31/18 11:52 Other Labs: Lab Results x24hrs 12/31/18 12/31/18 12/31/18 Range/Units 13:28 13:28 11:53 WBC 8.9 (4.8-10.8) x10^3/uL RBC 3.24 L (4.20-5.40) 10^6/uL Hgb 10.3 L (12.0-16.0) g/dL Hct 29.2 L (37.0-47.0) % MCV 90.2 (81.0-99.0) fL MCH 32.0 H (27.0-31.0) pg MCHC 35.4 (32.0-36.0) g/dL RDW 15.1 H (12.0-15.0) % Plt Count 235 (130-450) 10^3/uL MPV 7.9 (7.9-10.8) fL Neut # (Auto) 6.9 H (1.5-6.6) 10^3/uL Lymph # (Auto) 1.3 L (1.5-3.5) 10^3/uL [place] # (Auto) 0.6 (0.0-1.0) 10^3/uL Eos # (Auto) 0.1 (0.0-0.7) 10^3/uL Baso # (Auto) 0.1 (0.0-0.1) 10^3/uL Absolute Nucleated RBC 0.01 x10^3/uL Nucleated RBC % 0.1 /100WBC Sodium (135-145) mmol/L Potassium (3.5-5.0) mmol/L Chloride (101-111) mmol/L Carbon Dioxide (21-32) mmol/L Anion Gap (6-13) BUN (6-20) mg/dL Creatinine (0.4-1.0) mg/dL Estimated GFR (MDRD) (>89) Glucose (70-100) mg/dL Uric Acid (2.6-7.2) mg/dL Calcium (8.5-10.3) mg/dL Iron (28-170) ug/dL Total Bilirubin (0.2-1.0) mg/dL AST (10-42) IU/L ALT (10-60) IU/L Alkaline Phosphatase (42-121) IU/L Lactate Dehydrogenase (91-225) IU/L Total Protein (6.7-8.2) g/dL Albumin (3.2-5.5) g/dL Globulin (2.1-4.2) g/dL Albumin/Globulin Ratio (1.0-2.2) Vitamin B12 (180-914) pg/mL Urine Creatinine 50.3 mg/dL Ur Total Protein Timed 8 mg/dL Protein/Creatinin Ratio 0.2 (<=0.2) Blood Type AB POSITIVE Antibody Screen NEGATIVE 12/31/18 12/31/18 12/31/18 Range/Units 11:52 11:52 11:52 WBC 8.5 (4.8-10.8) x10^3/uL RBC 3.47 L (4.20-5.40) 10^6/uL Hgb 10.9 L (12.0-16.0) g/dL Hct 31.4 L (37.0-47.0) % MCV 90.5 (81.0-99.0) fL MCH 31.5 H (27.0-31.0) pg MCHC 34.7 (32.0-36.0) g/dL RDW 14.9 (12.0-15.0) % Plt Count 235 (130-450) 10^3/uL MPV 7.8 L (7.9-10.8) fL Neut # (Auto) 6.5 (1.5-6.6) 10^3/uL Lymph # (Auto) 1.4 L (1.5-3.5) 10^3/uL [place] # (Auto) 0.5 (0.0-1.0) 10^3/uL Eos # (Auto) 0.1 (0.0-0.7) 10^3/uL Baso # (Auto) 0.0 (0.0-0.1) 10^3/uL Absolute Nucleated RBC 0.00 x10^3/uL Nucleated RBC % 0.0 /100WBC Sodium (135-145) mmol/L Potassium (3.5-5.0) mmol/L Chloride (101-111) mmol/L Carbon Dioxide (21-32) mmol/L Anion Gap (6-13) BUN (6-20) mg/dL Creatinine (0.4-1.0) mg/dL Estimated GFR (MDRD) (>89) Glucose (70-100) mg/dL Uric Acid 4.9 (2.6-7.2) mg/dL Calcium (8.5-10.3) mg/dL Iron (28-170) ug/dL Total Bilirubin (0.2-1.0) mg/dL AST 21 (10-42) IU/L ALT (10-60) IU/L Alkaline Phosphatase (42-121) IU/L Lactate Dehydrogenase 133 (91-225) IU/L Total Protein (6.7-8.2) g/dL Albumin (3.2-5.5) g/dL Globulin (2.1-4.2) g/dL Albumin/Globulin Ratio (1.0-2.2) Vitamin B12 (180-914) pg/mL Urine Creatinine mg/dL Ur Total Protein Timed mg/dL Protein/Creatinin Ratio (<=0.2) Blood Type Antibody Screen 12/31/18 12/31/18 Range/Units 11:52 11:52 WBC (4.8-10.8) x10^3/uL RBC (4.20-5.40) 10^6/uL Hgb (12.0-16.0) g/dL Hct (37.0-47.0) % MCV (81.0-99.0) fL MCH (27.0-31.0) pg MCHC (32.0-36.0) g/dL RDW (12.0-15.0) % Plt Count (130-450) 10^3/uL MPV (7.9-10.8) fL Neut # (Auto) (1.5-6.6) 10^3/uL Lymph # (Auto) (1.5-3.5) 10^3/uL [place] # (Auto) (0.0-1.0) 10^3/uL Eos # (Auto) (0.0-0.7) 10^3/uL Baso # (Auto) (0.0-0.1) 10^3/uL Absolute Nucleated RBC x10^3/uL Nucleated RBC % /100WBC Sodium 134 L (135-145) mmol/L Potassium 3.1 L (3.5-5.0) mmol/L Chloride 101 (101-111) mmol/L Carbon Dioxide 22 (21-32) mmol/L Anion Gap 11.0 (6-13) BUN < 5 L (6-20) mg/dL Creatinine 0.4 (0.4-1.0) mg/dL Estimated GFR (MDRD) 189 (>89) Glucose 94 (70-100) mg/dL Uric Acid (2.6-7.2) mg/dL Calcium 8.7 (8.5-10.3) mg/dL Iron 85 (28-170) ug/dL Total Bilirubin 0.8 (0.2-1.0) mg/dL AST 22 (10-42) IU/L ALT 14 (10-60) IU/L Alkaline Phosphatase 134 H (42-121) IU/L Lactate Dehydrogenase (91-225) IU/L Total Protein 6.5 L (6.7-8.2) g/dL Albumin 3.3 (3.2-5.5) g/dL Globulin 3.2 (2.1-4.2) g/dL Albumin/Globulin Ratio 1.0 (1.0-2.2) Vitamin B12 254 (180-914) pg/mL Urine Creatinine mg/dL Ur Total Protein Timed mg/dL Protein/Creatinin Ratio (<=0.2) Blood Type Antibody Screen
[2019-01-01] MEDS ORDERED: WITCH HAZEL/GLYCERIN 1 EACH MED..PAD TOP PRN (04:05)
[2019-01-01] MEDS ORDERED: OXYTOCIN/SODIUM CHLORIDE 500 ML IV PRN (04:05)
[2019-01-01] MEDS ORDERED: SIMETHICONE CHEW 80 MG TABLET PO PRN (04:05)
[2019-01-01] MEDS ORDERED: MAGNESIUM HYDROXIDE 2,400 MG/30 ML UDC PO PRN (04:05)
[2019-01-01] MEDS ORDERED: HYDROCORTISONE 1% CREAM 28 GM TUBE PR PRN (04:05)
[2019-01-01] MEDS ORDERED: miSOPROStol 100 MCG TABLET BC STA (04:18)
--- NOTE | 2019-01-01 04:33 | PROVIDER PROGRESS NOTE ---
Subjective - Prog Note Date Prog Note Date: 01/01/19 Prog Note Time: 04:24 - Subjective Pt reports feeling: Improved Subjective: DELIVERY NOTE: COMPLETE: 316 BABY: 0328 PLACENTA: 0332 EBL: 500 ML LACERATIONS: NONE (INTACT) COMMENTS: Called for peds when patient C/C/+2. RT present at delivery. Uncomplicted of viable female with 7/9 (weight pending). Loose nuchal cord at delivery easily reduced. Segment of cord for gases obtained. Art pH/BE 7.33/-5.3, and venous pH/BE 7.38/-2.2 . Cord Blood obtained. IV pitocin rapid infusion started and IV magnesium sulfate turned off briefly during stage 3 and immediate period. Placenta delivered spontaneously and was noted to be intact. Some transient uterine bogginess and bleeding treated with aggressive uterine massage and cytotec 800 micrograms BC, with improvement. Exam of canal revealed intact cervix, vagina, and perineum. Patient to get two bags of IV pitocin over a period of 2 hours. Will remain on IV magnesium sulfate for at least 24 hours . Mother and baby doing well. Rechecking CBC, PIH panel and BMP at 0500. Will also SBAR to Dr. Avila, NIGHT COORDINATOR nuclear control room operator starting at 0800. Objective - Vital Signs/Intake & Output Intake & Output: Intake & Output 12/29/18 12/30/18 12/31/18 01/01/19 23:59 23:59 23:59 23:59 Intake Total 320 500 Output Total 551 Balance -231 500 - Lab Results Fish Bones: 12/31/18 13:28 12/31/18 11:52 Other Labs: Lab Results x24hrs 12/31/18 12/31/18 12/31/18 Range/Units 13:28 13:28 11:53 WBC 8.9 (4.8-10.8) x10^3/uL RBC 3.24 L (4.20-5.40) 10^6/uL Hgb 10.3 L (12.0-16.0) g/dL Hct 29.2 L (37.0-47.0) % MCV 90.2 (81.0-99.0) fL MCH 32.0 H (27.0-31.0) pg MCHC 35.4 (32.0-36.0) g/dL RDW 15.1 H (12.0-15.0) % Plt Count 235 (130-450) 10^3/uL MPV 7.9 (7.9-10.8) fL Neut # (Auto) 6.9 H (1.5-6.6) 10^3/uL Lymph # (Auto) 1.3 L (1.5-3.5) 10^3/uL [place] # (Auto) 0.6 (0.0-1.0) 10^3/uL Eos # (Auto) 0.1 (0.0-0.7) 10^3/uL Baso # (Auto) 0.1 (0.0-0.1) 10^3/uL Absolute Nucleated RBC 0.01 x10^3/uL Nucleated RBC % 0.1 /100WBC Sodium (135-145) mmol/L Potassium (3.5-5.0) mmol/L Chloride (101-111) mmol/L Carbon Dioxide (21-32) mmol/L Anion Gap (6-13) BUN (6-20) mg/dL Creatinine (0.4-1.0) mg/dL Estimated GFR (MDRD) (>89) Glucose (70-100) mg/dL Uric Acid (2.6-7.2) mg/dL Calcium (8.5-10.3) mg/dL Iron (28-170) ug/dL Total Bilirubin (0.2-1.0) mg/dL AST (10-42) IU/L ALT (10-60) IU/L Alkaline Phosphatase (42-121) IU/L Lactate Dehydrogenase (91-225) IU/L Total Protein (6.7-8.2) g/dL Albumin (3.2-5.5) g/dL Globulin (2.1-4.2) g/dL Albumin/Globulin Ratio (1.0-2.2) Vitamin B12 (180-914) pg/mL Urine Creatinine 50.3 mg/dL Ur Total Protein Timed 8 mg/dL Protein/Creatinin Ratio 0.2 (<=0.2) Blood Type AB POSITIVE Antibody Screen NEGATIVE 12/31/18 12/31/18 12/31/18 Range/Units 11:52 11:52 11:52 WBC 8.5 (4.8-10.8) x10^3/uL RBC 3.47 L (4.20-5.40) 10^6/uL Hgb 10.9 L (12.0-16.0) g/dL Hct 31.4 L (37.0-47.0) % MCV 90.5 (81.0-99.0) fL MCH 31.5 H (27.0-31.0) pg MCHC 34.7 (32.0-36.0) g/dL RDW 14.9 (12.0-15.0) % Plt Count 235 (130-450) 10^3/uL MPV 7.8 L (7.9-10.8) fL Neut # (Auto) 6.5 (1.5-6.6) 10^3/uL Lymph # (Auto) 1.4 L (1.5-3.5) 10^3/uL [place] # (Auto) 0.5 (0.0-1.0) 10^3/uL Eos # (Auto) 0.1 (0.0-0.7) 10^3/uL Baso # (Auto) 0.0 (0.0-0.1) 10^3/uL Absolute Nucleated RBC 0.00 x10^3/uL Nucleated RBC % 0.0 /100WBC Sodium (135-145) mmol/L Potassium (3.5-5.0) mmol/L Chloride (101-111) mmol/L Carbon Dioxide (21-32) mmol/L Anion Gap (6-13) BUN (6-20) mg/dL Creatinine (0.4-1.0) mg/dL Estimated GFR (MDRD) (>89) Glucose (70-100) mg/dL Uric Acid 4.9 (2.6-7.2) mg/dL Calcium (8.5-10.3) mg/dL Iron (28-170) ug/dL Total Bilirubin (0.2-1.0) mg/dL AST 21 (10-42) IU/L ALT (10-60) IU/L Alkaline Phosphatase (42-121) IU/L Lactate Dehydrogenase 133 (91-225) IU/L Total Protein (6.7-8.2) g/dL Albumin (3.2-5.5) g/dL Globulin (2.1-4.2) g/dL Albumin/Globulin Ratio (1.0-2.2) Vitamin B12 (180-914) pg/mL Urine Creatinine mg/dL Ur Total Protein Timed mg/dL Protein/Creatinin Ratio (<=0.2) Blood Type Antibody Screen 12/31/18 12/31/18 Range/Units 11:52 11:52 WBC (4.8-10.8) x10^3/uL RBC (4.20-5.40) 10^6/uL Hgb (12.0-16.0) g/dL Hct (37.0-47.0) % MCV (81.0-99.0) fL MCH (27.0-31.0) pg MCHC (32.0-36.0) g/dL RDW (12.0-15.0) % Plt Count (130-450) 10^3/uL MPV (7.9-10.8) fL Neut # (Auto) (1.5-6.6) 10^3/uL Lymph # (Auto) (1.5-3.5) 10^3/uL [place] # (Auto) (0.0-1.0) 10^3/uL Eos # (Auto) (0.0-0.7) 10^3/uL Baso # (Auto) (0.0-0.1) 10^3/uL Absolute Nucleated RBC x10^3/uL Nucleated RBC % /100WBC Sodium 134 L (135-145) mmol/L Potassium 3.1 L (3.5-5.0) mmol/L Chloride 101 (101-111) mmol/L Carbon Dioxide 22 (21-32) mmol/L Anion Gap 11.0 (6-13) BUN < 5 L (6-20) mg/dL Creatinine 0.4 (0.4-1.0) mg/dL Estimated GFR (MDRD) 189 (>89) Glucose 94 (70-100) mg/dL Uric Acid (2.6-7.2) mg/dL Calcium 8.7 (8.5-10.3) mg/dL Iron 85 (28-170) ug/dL Total Bilirubin 0.8 (0.2-1.0) mg/dL AST 22 (10-42) IU/L ALT 14 (10-60) IU/L Alkaline Phosphatase 134 H (42-121) IU/L Lactate Dehydrogenase (91-225) IU/L Total Protein 6.5 L (6.7-8.2) g/dL Albumin 3.3 (3.2-5.5) g/dL Globulin 3.2 (2.1-4.2) g/dL Albumin/Globulin Ratio 1.0 (1.0-2.2) Vitamin B12 254 (180-914) pg/mL Urine Creatinine mg/dL Ur Total Protein Timed mg/dL Protein/Creatinin Ratio (<=0.2) Blood Type Antibody Screen
[2019-01-01] MEDS ORDERED: miSOPROStol 200 MCG TABLET ONE (04:54)
[2019-01-01] MEDS ORDERED: LACTATED RINGERS 1,000 ML IV SCH ×2 (05:00→08:42)
[2019-01-01 06:28] LABS: BASOPHILS % (AUTO) 0.2 %; HGB - HEMOGLOBIN 10.7 g/dL (12.0-16.0); LYMPHOCYTES # (AUTO) 0.7 10^3/uL (1.5-3.5); LYMPHOCYTES % (AUTO) 4.8 %; MEAN CORPUSCULAR HEMOGLOBIN 31.3 pg (27.0-31.0); MEAN CORPUSCULAR HGB CONC 33.6 g/dL (32.0-36.0); MEAN CORPUSCULAR VOLUME 93.2 fL (81.0-99.0); MEAN PLATELET VOLUME 8.6 fL (7.9-10.8); MONOCYTES # (AUTO) 0.9 10^3/uL (0.0-1.0); MONOCYTES % (AUTO) 6.3 %; NEUTROPHILS # (AUTO) 13.3 10^3/uL (1.5-6.6); NEUTROPHILS % (AUTO) 88.7 %; PLT - PLATELET COUNT 254 10^3/uL (130-450); RED BLOOD COUNT 3.43 10^6/uL (4.20-5.40); RED CELL DISTRIBUTION WIDTH 15.2 % (12.0-15.0); WHITE BLOOD COUNT 14.9 x10^3/uL (4.8-10.8)
[2019-01-01] MEDS: ACETAMINOPHEN 325 MG TABLET PO PRN ×3 (06:54→18:23)
[2019-01-01 07:09] LABS: CREATININE 0.7 mg/dL (0.4-1.0); URIC ACID 5.2 mg/dL (2.6-7.2)
[2019-01-01 07:18] LABS: BUN - BLOOD UREA NITROGEN < 5 mg/dL (6-20); CALCIUM 6.8 mg/dL (8.5-10.3); CARBON DIOXIDE - CO2 16 mmol/L (21-32); CHLORIDE 101 mmol/L (101-111); CREATININE 0.8 mg/dL (0.4-1.0); GFR - MDRD 85 (>89); GLUCOSE 218 mg/dL (70-100); SODIUM 132 mmol/L (135-145)
--- NOTE | 2019-01-01 07:58 | PROVIDER PROGRESS NOTE ---
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 Doing well, tolerating diet, not nauseated. H/A and blurred vision she had pre-delivery has resolved. Patient required 5 mg of hydralazine at appox. 0600 hours due to bp slightly over 165/105 cut-off. BP now 137/71. O: VSS/AF, UO 450 ML since delivery. Labs stable. one of transaminases just slightly above normal range. HCT and PLT stable, as well as K CV RRR LCTAB ABD SNT Ux Firm U-4 and NT normal lochia MS/NM: no calf pain or significant edema. A/P: # 4 hrs pp after , CHTN with superimposed preeclampsia. # 20 mg hydralazine required pre-delivery and 5 mg hydralazine post-delivery for bp control. BP currently 137/71. Beginning to diurese. 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 # Plan is to continue Magnesium Sulfate at 1 gm/hour for 24 hours post-. # Will sign out shortly to Dr. Avila, MOTION PICTURE FILM EXAMINER director [employer]. Objective - Vital Signs/Intake & Output Vital Signs: Vital Signs x48h Temp Pulse Resp BP Pulse Ox 01/01/19 06:15 120 H 158/102 H 01/01/19 06:00 109 H 18 162/90 H 01/01/19 05:33 37.6 C H 109 H 20 143/81 H 01/01/19 05:20 119 H 18 155/97 H 01/01/19 05:00 110 H 18 133/84 H 01/01/19 04:50 121 H 18 120/75 99 01/01/19 04:35 36.8 C 134 H 18 138/77 H 100 01/01/19 04:20 36.8 C 107 H 22 132/89 H 99 01/01/19 04:00 113 H 20 143/78 H 100 Intake & Output: Intake & Output 12/29/18 12/30/18 12/31/18 01/01/19 23:59 23:59 23:59 23:59 Intake Total 320 2250 Output Total 551 450 Balance -231 1800 - Lab Results Fish Bones: 01/01/19 05:24 01/01/19 05:24 Other Labs: Lab Results x24hrs 01/01/19 01/01/19 01/01/19 Range/Units 05:24 05:24 05:24 WBC 14.9 H (4.8-10.8) x10^3/uL RBC 3.43 L (4.20-5.40) 10^6/uL Hgb 10.7 L (12.0-16.0) g/dL Hct 32.0 L (37.0-47.0) % MCV 93.2 (81.0-99.0) fL MCH 31.3 H (27.0-31.0) pg MCHC 33.6 (32.0-36.0) g/dL RDW 15.2 H (12.0-15.0) % Plt Count 254 (130-450) 10^3/uL MPV 8.6 (7.9-10.8) fL Neut # (Auto) 13.3 H (1.5-6.6) 10^3/uL Lymph # (Auto) 0.7 L (1.5-3.5) 10^3/uL [place] # (Auto) 0.9 (0.0-1.0) 10^3/uL Eos # (Auto) 0.0 (0.0-0.7) 10^3/uL Baso # (Auto) 0.0 (0.0-0.1) 10^3/uL Absolute Nucleated RBC 0.00 x10^3/uL Nucleated RBC % 0.0 /100WBC Sodium 132 L (135-145) mmol/L Potassium 3.3 L (3.5-5.0) mmol/L Chloride 101 (101-111) mmol/L Carbon Dioxide 16 L (21-32) mmol/L Anion Gap 15.0 H (6-13) BUN < 5 L (6-20) mg/dL Creatinine 0.8 0.7 (0.4-1.0) mg/dL Estimated GFR (MDRD) 85 L 99 (>89) Glucose 218 H (70-100) mg/dL Uric Acid 5.2 (2.6-7.2) mg/dL Calcium 6.8 L (8.5-10.3) mg/dL Iron (28-170) ug/dL Total Bilirubin (0.2-1.0) mg/dL AST 45 H (10-42) IU/L ALT 14 (10-60) IU/L Alkaline Phosphatase (42-121) IU/L Lactate Dehydrogenase (91-225) IU/L Total Protein (6.7-8.2) g/dL Albumin (3.2-5.5) g/dL Globulin (2.1-4.2) g/dL Albumin/Globulin Ratio (1.0-2.2) Vitamin B12 (180-914) pg/mL 25-OH Vitamin D Total (30-100) ng/mL Urine Creatinine mg/dL Ur Total Protein Timed mg/dL Protein/Creatinin Ratio (<=0.2) Blood Type Antibody Screen 12/31/18 12/31/18 12/31/18 Range/Units 13:28 13:28 11:53 WBC 8.9 (4.8-10.8) x10^3/uL RBC 3.24 L (4.20-5.40) 10^6/uL Hgb 10.3 L (12.0-16.0) g/dL Hct 29.2 L (37.0-47.0) % MCV 90.2 (81.0-99.0) fL MCH 32.0 H (27.0-31.0) pg MCHC 35.4 (32.0-36.0) g/dL RDW 15.1 H (12.0-15.0) % Plt Count 235 (130-450) 10^3/uL MPV 7.9 (7.9-10.8) fL Neut # (Auto) 6.9 H (1.5-6.6) 10^3/uL Lymph # (Auto) 1.3 L (1.5-3.5) 10^3/uL [place] # (Auto) 0.6 (0.0-1.0) 10^3/uL Eos # (Auto) 0.1 (0.0-0.7) 10^3/uL Baso # (Auto) 0.1 (0.0-0.1) 10^3/uL Absolute Nucleated RBC 0.01 x10^3/uL Nucleated RBC % 0.1 /100WBC Sodium (135-145) mmol/L Potassium (3.5-5.0) mmol/L Chloride (101-111) mmol/L Carbon Dioxide (21-32) mmol/L Anion Gap (6-13) BUN (6-20) mg/dL Creatinine (0.4-1.0) mg/dL Estimated GFR (MDRD) (>89) Glucose (70-100) mg/dL Uric Acid (2.6-7.2) mg/dL Calcium (8.5-10.3) mg/dL Iron (28-170) ug/dL Total Bilirubin (0.2-1.0) mg/dL AST (10-42) IU/L ALT (10-60) IU/L Alkaline Phosphatase (42-121) IU/L Lactate Dehydrogenase (91-225) IU/L Total Protein (6.7-8.2) g/dL Albumin (3.2-5.5) g/dL Globulin (2.1-4.2) g/dL Albumin/Globulin Ratio (1.0-2.2) Vitamin B12 (180-914) pg/mL 25-OH Vitamin D Total (30-100) ng/mL Urine Creatinine 50.3 mg/dL Ur Total Protein Timed 8 mg/dL Protein/Creatinin Ratio 0.2 (<=0.2) Blood Type AB POSITIVE Antibody Screen NEGATIVE 12/31/18 12/31/18 12/31/18 Range/Units 11:52 11:52 11:52 WBC 8.5 (4.8-10.8) x10^3/uL RBC 3.47 L (4.20-5.40) 10^6/uL Hgb 10.9 L (12.0-16.0) g/dL Hct 31.4 L (37.0-47.0) % MCV 90.5 (81.0-99.0) fL MCH 31.5 H (27.0-31.0) pg MCHC 34.7 (32.0-36.0) g/dL RDW 14.9 (12.0-15.0) % Plt Count 235 (130-450) 10^3/uL MPV 7.8 L (7.9-10.8) fL Neut # (Auto) 6.5 (1.5-6.6) 10^3/uL Lymph # (Auto) 1.4 L (1.5-3.5) 10^3/uL [place] # (Auto) 0.5 (0.0-1.0) 10^3/uL Eos # (Auto) 0.1 (0.0-0.7) 10^3/uL Baso # (Auto) 0.0 (0.0-0.1) 10^3/uL Absolute Nucleated RBC 0.00 x10^3/uL Nucleated RBC % 0.0 /100WBC Sodium (135-145) mmol/L Potassium (3.5-5.0) mmol/L Chloride (101-111) mmol/L Carbon Dioxide (21-32) mmol/L Anion Gap (6-13) BUN (6-20) mg/dL Creatinine (0.4-1.0) mg/dL Estimated GFR (MDRD) (>89) Glucose (70-100) mg/dL Uric Acid 4.9 (2.6-7.2) mg/dL Calcium (8.5-10.3) mg/dL Iron (28-170) ug/dL Total Bilirubin (0.2-1.0) mg/dL AST 21 (10-42) IU/L ALT (10-60) IU/L Alkaline Phosphatase (42-121) IU/L Lactate Dehydrogenase 133 (91-225) IU/L Total Protein (6.7-8.2) g/dL Albumin (3.2-5.5) g/dL Globulin (2.1-4.2) g/dL Albumin/Globulin Ratio (1.0-2.2) Vitamin B12 (180-914) pg/mL 25-OH Vitamin D Total (30-100) ng/mL Urine Creatinine mg/dL Ur Total Protein Timed mg/dL Protein/Creatinin Ratio (<=0.2) Blood Type Antibody Screen 12/31/18 12/31/18 12/31/18 Range/Units 11:52 11:52 11:52 WBC (4.8-10.8) x10^3/uL RBC (4.20-5.40) 10^6/uL Hgb (12.0-16.0) g/dL Hct (37.0-47.0) % MCV (81.0-99.0) fL MCH (27.0-31.0) pg MCHC (32.0-36.0) g/dL RDW (12.0-15.0) % Plt Count (130-450) 10^3/uL MPV (7.9-10.8) fL Neut # (Auto) (1.5-6.6) 10^3/uL Lymph # (Auto) (1.5-3.5) 10^3/uL [place] # (Auto) (0.0-1.0) 10^3/uL Eos # (Auto) (0.0-0.7) 10^3/uL Baso # (Auto) (0.0-0.1) 10^3/uL Absolute Nucleated RBC x10^3/uL Nucleated RBC % /100WBC Sodium 134 L (135-145) mmol/L Potassium 3.1 L (3.5-5.0) mmol/L Chloride 101 (101-111) mmol/L Carbon Dioxide 22 (21-32) mmol/L Anion Gap 11.0 (6-13) BUN < 5 L (6-20) mg/dL Creatinine 0.4 (0.4-1.0) mg/dL Estimated GFR (MDRD) 189 (>89) Glucose 94 (70-100) mg/dL Uric Acid (2.6-7.2) mg/dL Calcium 8.7 (8.5-10.3) mg/dL Iron 85 (28-170) ug/dL Total Bilirubin 0.8 (0.2-1.0) mg/dL AST 22 (10-42) IU/L ALT 14 (10-60) IU/L Alkaline Phosphatase 134 H (42-121) IU/L Lactate Dehydrogenase (91-225) IU/L Total Protein 6.5 L (6.7-8.2) g/dL Albumin 3.3 (3.2-5.5) g/dL Globulin 3.2 (2.1-4.2) g/dL Albumin/Globulin Ratio 1.0 (1.0-2.2) Vitamin B12 254 (180-914) pg/mL 25-OH Vitamin D Total 8 L (30-100) ng/mL Urine Creatinine mg/dL Ur Total Protein Timed mg/dL Protein/Creatinin Ratio (<=0.2) Blood Type Antibody Screen
--- NOTE | 2019-01-01 08:06 | Discharge Plan ---
Discharge Plan Disposition: 01 Home, Self Care Condition: Good Diet: Regular Activity Restrictions: SEE WRITTEN INSTRUCTIONS Weight Bearing: Full Weight No Smoking: If you smoke, Please STOP! Call for help. Follow-up with: Avni Avila MD [Provider Admit Priv/Credential] - 2 Weeks (SEE DR. AVILA IN 2 WEEKS AT [facility]. CALL FOR APPOINTMENT IF ONE NOT GIVEN AT DISCHARGE.)
--- NOTE | 2019-01-01 08:47 | PROVIDER PROGRESS NOTE ---
Subjective - Prog Note Date Prog Note Date: 01/01/19 Prog Note Time: 08:45 - Subjective Pt reports feeling: Improved (reviewed Dr kaushal note and discussed pt with him. Repeat [facility] labs at 1400. Start labetolol 100 bid K+ 25 po bid VS q 2 hours) Objective - Vital Signs/Intake & Output Vital Signs: Vital Signs x48h Temp Pulse Resp BP Pulse Ox 01/01/19 08:25 37.0 C 112 H 19 159/95 H 01/01/19 06:15 120 H 158/102 H 01/01/19 06:00 109 H 18 162/90 H 01/01/19 05:33 37.6 C H 109 H 20 143/81 H 01/01/19 05:20 119 H 18 155/97 H 01/01/19 05:00 110 H 18 133/84 H 01/01/19 04:50 121 H 18 120/75 99 01/01/19 04:35 36.8 C 134 H 18 138/77 H 100 01/01/19 04:20 36.8 C 107 H 22 132/89 H 99 01/01/19 04:00 113 H 20 143/78 H 100 Intake & Output: Intake & Output 12/29/18 12/30/18 12/31/18 01/01/19 23:59 23:59 23:59 23:59 Intake Total 320 2250 Output Total 551 1050 Balance -231 1200 - Lab Results Fish Bones: 01/01/19 05:24 01/01/19 05:24 Other Labs: Lab Results x24hrs 01/01/19 01/01/19 01/01/19 Range/Units 05:24 05:24 05:24 WBC 14.9 H (4.8-10.8) x10^3/uL RBC 3.43 L (4.20-5.40) 10^6/uL Hgb 10.7 L (12.0-16.0) g/dL Hct 32.0 L (37.0-47.0) % MCV 93.2 (81.0-99.0) fL MCH 31.3 H (27.0-31.0) pg MCHC 33.6 (32.0-36.0) g/dL RDW 15.2 H (12.0-15.0) % Plt Count 254 (130-450) 10^3/uL MPV 8.6 (7.9-10.8) fL Neut # (Auto) 13.3 H (1.5-6.6) 10^3/uL Lymph # (Auto) 0.7 L (1.5-3.5) 10^3/uL Scurry # (Auto) 0.9 (0.0-1.0) 10^3/uL Eos # (Auto) 0.0 (0.0-0.7) 10^3/uL Baso # (Auto) 0.0 (0.0-0.1) 10^3/uL Absolute Nucleated RBC 0.00 x10^3/uL Nucleated RBC % 0.0 /100WBC Sodium 132 L (135-145) mmol/L Potassium 3.3 L (3.5-5.0) mmol/L Chloride 101 (101-111) mmol/L Carbon Dioxide 16 L (21-32) mmol/L Anion Gap 15.0 H (6-13) BUN < 5 L (6-20) mg/dL Creatinine 0.8 0.7 (0.4-1.0) mg/dL Estimated GFR (MDRD) 85 L 99 (>89) Glucose 218 H (70-100) mg/dL Uric Acid 5.2 (2.6-7.2) mg/dL Calcium 6.8 L (8.5-10.3) mg/dL Iron (28-170) ug/dL Total Bilirubin (0.2-1.0) mg/dL AST 45 H (10-42) IU/L ALT 14 (10-60) IU/L Alkaline Phosphatase (42-121) IU/L Lactate Dehydrogenase (91-225) IU/L Total Protein (6.7-8.2) g/dL Albumin (3.2-5.5) g/dL Globulin (2.1-4.2) g/dL Albumin/Globulin Ratio (1.0-2.2) Vitamin B12 (180-914) pg/mL 25-OH Vitamin D Total (30-100) ng/mL Urine Creatinine mg/dL Ur Total Protein Timed mg/dL Protein/Creatinin Ratio (<=0.2) Blood Type Antibody Screen 12/31/18 12/31/18 12/31/18 Range/Units 13:28 13:28 11:53 WBC 8.9 (4.8-10.8) x10^3/uL RBC 3.24 L (4.20-5.40) 10^6/uL Hgb 10.3 L (12.0-16.0) g/dL Hct 29.2 L (37.0-47.0) % MCV 90.2 (81.0-99.0) fL MCH 32.0 H (27.0-31.0) pg MCHC 35.4 (32.0-36.0) g/dL RDW 15.1 H (12.0-15.0) % Plt Count 235 (130-450) 10^3/uL MPV 7.9 (7.9-10.8) fL Neut # (Auto) 6.9 H (1.5-6.6) 10^3/uL Lymph # (Auto) 1.3 L (1.5-3.5) 10^3/uL Scurry # (Auto) 0.6 (0.0-1.0) 10^3/uL Eos # (Auto) 0.1 (0.0-0.7) 10^3/uL Baso # (Auto) 0.1 (0.0-0.1) 10^3/uL Absolute Nucleated RBC 0.01 x10^3/uL Nucleated RBC % 0.1 /100WBC Sodium (135-145) mmol/L Potassium (3.5-5.0) mmol/L Chloride (101-111) mmol/L Carbon Dioxide (21-32) mmol/L Anion Gap (6-13) BUN (6-20) mg/dL Creatinine (0.4-1.0) mg/dL Estimated GFR (MDRD) (>89) Glucose (70-100) mg/dL Uric Acid (2.6-7.2) mg/dL Calcium (8.5-10.3) mg/dL Iron (28-170) ug/dL Total Bilirubin (0.2-1.0) mg/dL AST (10-42) IU/L ALT (10-60) IU/L Alkaline Phosphatase (42-121) IU/L Lactate Dehydrogenase (91-225) IU/L Total Protein (6.7-8.2) g/dL Albumin (3.2-5.5) g/dL Globulin (2.1-4.2) g/dL Albumin/Globulin Ratio (1.0-2.2) Vitamin B12 (180-914) pg/mL 25-OH Vitamin D Total (30-100) ng/mL Urine Creatinine 50.3 mg/dL Ur Total Protein Timed 8 mg/dL Protein/Creatinin Ratio 0.2 (<=0.2) Blood Type AB POSITIVE Antibody Screen NEGATIVE 12/31/18 12/31/18 12/31/18 Range/Units 11:52 11:52 11:52 WBC 8.5 (4.8-10.8) x10^3/uL RBC 3.47 L (4.20-5.40) 10^6/uL Hgb 10.9 L (12.0-16.0) g/dL Hct 31.4 L (37.0-47.0) % MCV 90.5 (81.0-99.0) fL MCH 31.5 H (27.0-31.0) pg MCHC 34.7 (32.0-36.0) g/dL RDW 14.9 (12.0-15.0) % Plt Count 235 (130-450) 10^3/uL MPV 7.8 L (7.9-10.8) fL Neut # (Auto) 6.5 (1.5-6.6) 10^3/uL Lymph # (Auto) 1.4 L (1.5-3.5) 10^3/uL Scurry # (Auto) 0.5 (0.0-1.0) 10^3/uL Eos # (Auto) 0.1 (0.0-0.7) 10^3/uL Baso # (Auto) 0.0 (0.0-0.1) 10^3/uL Absolute Nucleated RBC 0.00 x10^3/uL Nucleated RBC % 0.0 /100WBC Sodium (135-145) mmol/L Potassium (3.5-5.0) mmol/L Chloride (101-111) mmol/L Carbon Dioxide (21-32) mmol/L Anion Gap (6-13) BUN (6-20) mg/dL Creatinine (0.4-1.0) mg/dL Estimated GFR (MDRD) (>89) Glucose (70-100) mg/dL Uric Acid 4.9 (2.6-7.2) mg/dL Calcium (8.5-10.3) mg/dL Iron (28-170) ug/dL Total Bilirubin (0.2-1.0) mg/dL AST 21 (10-42) IU/L ALT (10-60) IU/L Alkaline Phosphatase (42-121) IU/L Lactate Dehydrogenase 133 (91-225) IU/L Total Protein (6.7-8.2) g/dL Albumin (3.2-5.5) g/dL Globulin (2.1-4.2) g/dL Albumin/Globulin Ratio (1.0-2.2) Vitamin B12 (180-914) pg/mL 25-OH Vitamin D Total (30-100) ng/mL Urine Creatinine mg/dL Ur Total Protein Timed mg/dL Protein/Creatinin Ratio (<=0.2) Blood Type Antibody Screen 12/31/18 12/31/18 12/31/18 Range/Units 11:52 11:52 11:52 WBC (4.8-10.8) x10^3/uL RBC (4.20-5.40) 10^6/uL Hgb (12.0-16.0) g/dL Hct (37.0-47.0) % MCV (81.0-99.0) fL MCH (27.0-31.0) pg MCHC (32.0-36.0) g/dL RDW (12.0-15.0) % Plt Count (130-450) 10^3/uL MPV (7.9-10.8) fL Neut # (Auto) (1.5-6.6) 10^3/uL Lymph # (Auto) (1.5-3.5) 10^3/uL Scurry # (Auto) (0.0-1.0) 10^3/uL Eos # (Auto) (0.0-0.7) 10^3/uL Baso # (Auto) (0.0-0.1) 10^3/uL Absolute Nucleated RBC x10^3/uL Nucleated RBC % /100WBC Sodium 134 L (135-145) mmol/L Potassium 3.1 L (3.5-5.0) mmol/L Chloride 101 (101-111) mmol/L Carbon Dioxide 22 (21-32) mmol/L Anion Gap 11.0 (6-13) BUN < 5 L (6-20) mg/dL Creatinine 0.4 (0.4-1.0) mg/dL Estimated GFR (MDRD) 189 (>89) Glucose 94 (70-100) mg/dL Uric Acid (2.6-7.2) mg/dL Calcium 8.7 (8.5-10.3) mg/dL Iron 85 (28-170) ug/dL Total Bilirubin 0.8 (0.2-1.0) mg/dL AST 22 (10-42) IU/L ALT 14 (10-60) IU/L Alkaline Phosphatase 134 H (42-121) IU/L Lactate Dehydrogenase (91-225) IU/L Total Protein 6.5 L (6.7-8.2) g/dL Albumin 3.3 (3.2-5.5) g/dL Globulin 3.2 (2.1-4.2) g/dL Albumin/Globulin Ratio 1.0 (1.0-2.2) Vitamin B12 254 (180-914) pg/mL 25-OH Vitamin D Total 8 L (30-100) ng/mL Urine Creatinine mg/dL Ur Total Protein Timed mg/dL Protein/Creatinin Ratio (<=0.2) Blood Type Antibody Screen
[2019-01-01 09:14] LABS: MAGNESIUM 4.4 mg/dL (1.7-2.8)
[2019-01-01] MEDS: LABETALOL 100 MG TABLET PO SCH ×2 (09:29→21:17)
[2019-01-01] MEDS: DOCUSATE SODIUM 100 MG CAPSULE PO PRN (09:29)
[2019-01-01] MEDS: POTASSIUM BICARB 25 MEQ TABLET PO SCH ×2 (09:31→21:17)
[2019-01-01] MEDS: LORATADINE 10 MG TABLET PO SCH (09:31)
[2019-01-01 11:12] LABS: CREATININE,URINE < 13.0 mg/dL; TOTAL PROTEIN,URINE TIMED 182 mg/dL
[2019-01-01 14:27] LABS: BASOPHILS % (AUTO) 0.3 %; EOSINOPHILS % (AUTO) 0.1 %; HGB - HEMOGLOBIN 10.1 g/dL (12.0-16.0); LYMPHOCYTES # (AUTO) 1.8 10^3/uL (1.5-3.5); LYMPHOCYTES % (AUTO) 12.6 %; MEAN CORPUSCULAR HEMOGLOBIN 31.5 pg (27.0-31.0); MEAN CORPUSCULAR HGB CONC 34.7 g/dL (32.0-36.0); MEAN CORPUSCULAR VOLUME 90.6 fL (81.0-99.0); MEAN PLATELET VOLUME 7.9 fL (7.9-10.8); MONOCYTES # (AUTO) 1.1 10^3/uL (0.0-1.0); MONOCYTES % (AUTO) 8.1 %; NEUTROPHILS # (AUTO) 11.1 10^3/uL (1.5-6.6); NEUTROPHILS % (AUTO) 78.9 %; PLT - PLATELET COUNT 264 10^3/uL (130-450); RED BLOOD COUNT 3.21 10^6/uL (4.20-5.40); WHITE BLOOD COUNT 14.1 x10^3/uL (4.8-10.8)
[2019-01-01 14:40] LABS: AST ASPARTATE AMINOTRANSFERASE 19 IU/L (10-42); BUN - BLOOD UREA NITROGEN < 5 mg/dL (6-20); CALCIUM 7.8 mg/dL (8.5-10.3); CARBON DIOXIDE - CO2 22 mmol/L (21-32); CHLORIDE 101 mmol/L (101-111); CREATININE 0.5 mg/dL (0.4-1.0); GFR - MDRD 146 (>89); GLUCOSE 96 mg/dL (70-100); MAGNESIUM 4.5 mg/dL (1.7-2.8); SODIUM 131 mmol/L (135-145); URIC ACID 4.2 mg/dL (2.6-7.2)
--- NOTE | 2019-01-01 19:09 | PROVIDER PROGRESS NOTE ---
Subjective - Prog Note Date Prog Note Date: 01/01/19 Prog Note Time: 19:07 - Subjective Pt reports feeling: Improved (Pt notes Pain 5/10. states good pain control. Pain from the back. valentina NAVARRO or visula changes) Objective - Vital Signs/Intake & Output Reviewed Vital Signs: Yes Vital Signs: Vital Signs x48h Temp Pulse Resp BP Pulse Ox 01/01/19 16:19 36.6 C 96 16 130/96 H 99 01/01/19 14:13 36.9 C 99 16 120/69 99 01/01/19 12:26 36.9 C 99 18 141/90 H 96 Intake & Output: Intake & Output 12/29/18 12/30/18 12/31/18 01/01/19 23:59 23:59 23:59 23:59 Intake Total 320 2675 Output Total 551 2150 Balance -231 525 - Objective General Appearance: positive: No acute distress, Alert Extremities: negative: Calf tenderness, Joint swelling, Kaleb's sign/cords Neurologic/Psychiatric: positive: Oriented x3 Reflexes: Knee (R): 2+ (no clonus), Knee (L): 2+ - Lab Results Fish Bones: 01/01/19 14:18 01/01/19 14:18 Other Labs: Lab Results x24hrs 01/01/19 01/01/19 01/01/19 Range/Units 14:18 14:18 14:18 WBC 14.1 H (4.8-10.8) x10^3/uL RBC 3.21 L (4.20-5.40) 10^6/uL Hgb 10.1 L (12.0-16.0) g/dL Hct 29.1 L (37.0-47.0) % MCV 90.6 (81.0-99.0) fL MCH 31.5 H (27.0-31.0) pg MCHC 34.7 (32.0-36.0) g/dL RDW 15.0 (12.0-15.0) % Plt Count 264 (130-450) 10^3/uL MPV 7.9 (7.9-10.8) fL Neut # (Auto) 11.1 H (1.5-6.6) 10^3/uL Lymph # (Auto) 1.8 (1.5-3.5) 10^3/uL Eagle # (Auto) 1.1 H (0.0-1.0) 10^3/uL Eos # (Auto) 0.0 (0.0-0.7) 10^3/uL Baso # (Auto) 0.0 (0.0-0.1) 10^3/uL Absolute Nucleated RBC 0.00 x10^3/uL Nucleated RBC % 0.0 /100WBC Sodium 131 L (135-145) mmol/L Potassium 4.1 (3.5-5.0) mmol/L Chloride 101 (101-111) mmol/L Carbon Dioxide 22 (21-32) mmol/L Anion Gap 8.0 (6-13) BUN < 5 L (6-20) mg/dL Creatinine 0.5 (0.4-1.0) mg/dL Estimated GFR (MDRD) 146 (>89) Glucose 96 (70-100) mg/dL Uric Acid 4.2 (2.6-7.2) mg/dL Calcium 7.8 L (8.5-10.3) mg/dL Magnesium 4.5 H (1.7-2.8) mg/dL AST 19 (10-42) IU/L ALT (10-60) IU/L Lactate Dehydrogenase 204 (91-225) IU/L 25-OH Vitamin D Total (30-100) ng/mL Urine Creatinine mg/dL Ur Total Protein Timed mg/dL Protein/Creatinin Ratio (<=0.2) 01/01/19 01/01/19 01/01/19 Range/Units 10:05 05:24 05:24 WBC (4.8-10.8) x10^3/uL RBC (4.20-5.40) 10^6/uL Hgb (12.0-16.0) g/dL Hct (37.0-47.0) % MCV (81.0-99.0) fL MCH (27.0-31.0) pg MCHC (32.0-36.0) g/dL RDW (12.0-15.0) % Plt Count (130-450) 10^3/uL MPV (7.9-10.8) fL Neut # (Auto) (1.5-6.6) 10^3/uL Lymph # (Auto) (1.5-3.5) 10^3/uL Eagle # (Auto) (0.0-1.0) 10^3/uL Eos # (Auto) (0.0-0.7) 10^3/uL Baso # (Auto) (0.0-0.1) 10^3/uL Absolute Nucleated RBC x10^3/uL Nucleated RBC % /100WBC Sodium 132 L (135-145) mmol/L Potassium 3.3 L (3.5-5.0) mmol/L Chloride 101 (101-111) mmol/L Carbon Dioxide 16 L (21-32) mmol/L Anion Gap 15.0 H (6-13) BUN < 5 L (6-20) mg/dL Creatinine 0.8 0.7 (0.4-1.0) mg/dL Estimated GFR (MDRD) 85 L 99 (>89) Glucose 218 H (70-100) mg/dL Uric Acid 5.2 (2.6-7.2) mg/dL Calcium 6.8 L (8.5-10.3) mg/dL Magnesium 4.4 H (1.7-2.8) mg/dL AST 45 H (10-42) IU/L ALT 14 (10-60) IU/L Lactate Dehydrogenase (91-225) IU/L 25-OH Vitamin D Total (30-100) ng/mL Urine Creatinine < 13.0 mg/dL Ur Total Protein Timed 182 mg/dL Protein/Creatinin Ratio 14.0 H (<=0.2) 01/01/19 12/31/18 Range/Units 05:24 11:52 WBC 14.9 H (4.8-10.8) x10^3/uL RBC 3.43 L (4.20-5.40) 10^6/uL Hgb 10.7 L (12.0-16.0) g/dL Hct 32.0 L (37.0-47.0) % MCV 93.2 (81.0-99.0) fL MCH 31.3 H (27.0-31.0) pg MCHC 33.6 (32.0-36.0) g/dL RDW 15.2 H (12.0-15.0) % Plt Count 254 (130-450) 10^3/uL MPV 8.6 (7.9-10.8) fL Neut # (Auto) 13.3 H (1.5-6.6) 10^3/uL Lymph # (Auto) 0.7 L (1.5-3.5) 10^3/uL Eagle # (Auto) 0.9 (0.0-1.0) 10^3/uL Eos # (Auto) 0.0 (0.0-0.7) 10^3/uL Baso # (Auto) 0.0 (0.0-0.1) 10^3/uL Absolute Nucleated RBC 0.00 x10^3/uL Nucleated RBC % 0.0 /100WBC Sodium (135-145) mmol/L Potassium (3.5-5.0) mmol/L Chloride (101-111) mmol/L Carbon Dioxide (21-32) mmol/L Anion Gap (6-13) BUN (6-20) mg/dL Creatinine (0.4-1.0) mg/dL Estimated GFR (MDRD) (>89) Glucose (70-100) mg/dL Uric Acid (2.6-7.2) mg/dL Calcium (8.5-10.3) mg/dL Magnesium (1.7-2.8) mg/dL AST (10-42) IU/L ALT (10-60) IU/L Lactate Dehydrogenase (91-225) IU/L 25-OH Vitamin D Total 8 L (30-100) ng/mL Urine Creatinine mg/dL Ur Total Protein Timed mg/dL Protein/Creatinin Ratio (<=0.2) Assessment/Plan - Problem List (1) Chronic hypertension with superimposed preeclampsia Impression: Pt is diruresing Labs are normalizinf except for the P/C ratio. this secondary to a contaminated specimen with blood. Stop Magnesium at 0400. Repeat [facility] labs at 0600. (2) Born by forceps delivery Impression: doing well.
[2019-01-02] MEDS: ACETAMINOPHEN 325 MG TABLET PO PRN ×3 (00:58→14:16)
[2019-01-02] MEDS ORDERED: LABETALOL 100 MG TABLET PO ONE (06:21)
[2019-01-02 08:29] LABS: BASOPHILS % (AUTO) 0.3 %; EOSINOPHILS # (AUTO) 0.1 10^3/uL (0.0-0.7); EOSINOPHILS % (AUTO) 1.3 %; HGB - HEMOGLOBIN 9.6 g/dL (12.0-16.0); LYMPHOCYTES # (AUTO) 1.6 10^3/uL (1.5-3.5); MEAN CORPUSCULAR HEMOGLOBIN 31.8 pg (27.0-31.0); MEAN CORPUSCULAR HGB CONC 34.9 g/dL (32.0-36.0); MEAN CORPUSCULAR VOLUME 91.3 fL (81.0-99.0); MEAN PLATELET VOLUME 7.9 fL (7.9-10.8); MONOCYTES # (AUTO) 0.7 10^3/uL (0.0-1.0); MONOCYTES % (AUTO) 6.7 %; NEUTROPHILS # (AUTO) 8.1 10^3/uL (1.5-6.6); NEUTROPHILS % (AUTO) 76.7 %; PLT - PLATELET COUNT 228 10^3/uL (130-450); RED BLOOD COUNT 3.01 10^6/uL (4.20-5.40); RED CELL DISTRIBUTION WIDTH 15.4 % (12.0-15.0); WHITE BLOOD COUNT 10.6 x10^3/uL (4.8-10.8)
[2019-01-02 08:36] LABS: URIC ACID 4.3 mg/dL (2.6-7.2)
[2019-01-02] MEDS: DOCUSATE SODIUM 100 MG CAPSULE PO PRN ×2 (09:13→21:05)
[2019-01-02] MEDS: LABETALOL 100 MG TABLET PO SCH ×3 (09:13→21:05)
[2019-01-02] MEDS: LORATADINE 10 MG TABLET PO SCH (09:14)
[2019-01-02] MEDS: POTASSIUM BICARB 25 MEQ TABLET PO SCH (09:15)
[2019-01-02] MEDS: SODIUM CHLORIDE FLUSH 0.9% 10 ML SYRINGE IVP SCH ×2 (09:16→17:43)
[2019-01-02 10:01] LABS: PROTEIN/CREATININE RATIO,URINE 0.3 (<=0.2)
[2019-01-02] MEDS ORDERED: oxyCODONE 5 MG TABLET PO PRN (10:02)
--- NOTE | 2019-01-02 10:13 | PROVIDER PROGRESS NOTE ---
Subjective - Prog Note Date Prog Note Date: 01/02/19 Prog Note Time: 10:06 - Subjective Pt reports feeling: Improved (Pt C/O pain at the epidural site. 11/15. breast feeding. valentina NAVARRO or visual changes) Objective - Vital Signs/Intake & Output Reviewed Vital Signs: Yes Vital Signs: Vital Signs x48h Temp Pulse Resp BP BP Pulse Ox 01/02/19 09:15 93 138/83 H 01/02/19 08:51 36.5 C 97 18 124/89 H 100 01/02/19 06:55 82 131/85 H 01/02/19 06:16 78 148/90 H 01/02/19 06:06 91 153/99 H 01/02/19 05:50 126/95 H 01/02/19 05:45 36.4 C L 88 18 141/95 H 99 01/02/19 04:10 88 18 134/88 H 100 Intake & Output: Intake & Output 12/30/18 12/31/18 01/01/19 01/02/19 23:59 23:59 23:59 23:59 Intake Total 320 3175 Output Total 551 3050 550 Balance -231 125 -550 - Objective General Appearance: positive: No acute distress, Alert Respiratory: positive: Chest non-tender, No respiratory distress, Breath sounds nml Cardiovascular: positive: Regular rate & rhythm, No murmur, No gallop Abdomen: positive: Non-tender, No organomegaly, Nml bowel sounds, Mass (U-2) Back: positive: Other (at epidural site small 6 mm discoloration. minimal tenderness) Extremities: negative: Calf tenderness, Kaleb's sign/cords Neurologic/Psychiatric: positive: Oriented x3 Reflexes: Knee (R): 3+, Knee (L): 3+ - Lab Results Fish Bones: 01/02/19 08:00 01/01/19 14:18 Other Labs: Lab Results x24hrs 01/02/19 01/02/19 01/02/19 Range/Units 09:05 08:00 08:00 WBC 10.6 (4.8-10.8) x10^3/uL RBC 3.01 L (4.20-5.40) 10^6/uL Hgb 9.6 L (12.0-16.0) g/dL Hct 27.5 L (37.0-47.0) % MCV 91.3 (81.0-99.0) fL MCH 31.8 H (27.0-31.0) pg MCHC 34.9 (32.0-36.0) g/dL RDW 15.4 H (12.0-15.0) % Plt Count 228 (130-450) 10^3/uL MPV 7.9 (7.9-10.8) fL Neut # (Auto) 8.1 H (1.5-6.6) 10^3/uL Lymph # (Auto) 1.6 (1.5-3.5) 10^3/uL Ector # (Auto) 0.7 (0.0-1.0) 10^3/uL Eos # (Auto) 0.1 (0.0-0.7) 10^3/uL Baso # (Auto) 0.0 (0.0-0.1) 10^3/uL Absolute Nucleated RBC 0.00 x10^3/uL Nucleated RBC % 0.0 /100WBC Sodium (135-145) mmol/L Potassium (3.5-5.0) mmol/L Chloride (101-111) mmol/L Carbon Dioxide (21-32) mmol/L Anion Gap (6-13) BUN (6-20) mg/dL Creatinine (0.4-1.0) mg/dL Estimated GFR (MDRD) (>89) Glucose (70-100) mg/dL Uric Acid 4.3 (2.6-7.2) mg/dL Calcium (8.5-10.3) mg/dL Magnesium (1.7-2.8) mg/dL AST 18 (10-42) IU/L ALT 10 (10-60) IU/L Lactate Dehydrogenase (91-225) IU/L Urine Creatinine 46.0 mg/dL Ur Total Protein Timed 16 mg/dL Protein/Creatinin Ratio 0.3 H (<=0.2) 01/02/19 01/01/19 01/01/19 Range/Units 08:00 14:18 14:18 WBC 14.1 H (4.8-10.8) x10^3/uL RBC 3.21 L (4.20-5.40) 10^6/uL Hgb 10.1 L (12.0-16.0) g/dL Hct 29.1 L (37.0-47.0) % MCV 90.6 (81.0-99.0) fL MCH 31.5 H (27.0-31.0) pg MCHC 34.7 (32.0-36.0) g/dL RDW 15.0 (12.0-15.0) % Plt Count 264 (130-450) 10^3/uL MPV 7.9 (7.9-10.8) fL Neut # (Auto) 11.1 H (1.5-6.6) 10^3/uL Lymph # (Auto) 1.8 (1.5-3.5) 10^3/uL Ector # (Auto) 1.1 H (0.0-1.0) 10^3/uL Eos # (Auto) 0.0 (0.0-0.7) 10^3/uL Baso # (Auto) 0.0 (0.0-0.1) 10^3/uL Absolute Nucleated RBC 0.00 x10^3/uL Nucleated RBC % 0.0 /100WBC Sodium 131 L (135-145) mmol/L Potassium 4.1 (3.5-5.0) mmol/L Chloride 101 (101-111) mmol/L Carbon Dioxide 22 (21-32) mmol/L Anion Gap 8.0 (6-13) BUN < 5 L (6-20) mg/dL Creatinine 0.5 (0.4-1.0) mg/dL Estimated GFR (MDRD) 146 (>89) Glucose 96 (70-100) mg/dL Uric Acid 4.2 (2.6-7.2) mg/dL Calcium 7.8 L (8.5-10.3) mg/dL Magnesium 4.5 H (1.7-2.8) mg/dL AST 19 (10-42) IU/L ALT (10-60) IU/L Lactate Dehydrogenase 226 H (91-225) IU/L Urine Creatinine mg/dL Ur Total Protein Timed mg/dL Protein/Creatinin Ratio (<=0.2) 01/01/19 01/01/19 Range/Units 14:18 10:05 WBC (4.8-10.8) x10^3/uL RBC (4.20-5.40) 10^6/uL Hgb (12.0-16.0) g/dL Hct (37.0-47.0) % MCV (81.0-99.0) fL MCH (27.0-31.0) pg MCHC (32.0-36.0) g/dL RDW (12.0-15.0) % Plt Count (130-450) 10^3/uL MPV (7.9-10.8) fL Neut # (Auto) (1.5-6.6) 10^3/uL Lymph # (Auto) (1.5-3.5) 10^3/uL Ector # (Auto) (0.0-1.0) 10^3/uL Eos # (Auto) (0.0-0.7) 10^3/uL Baso # (Auto) (0.0-0.1) 10^3/uL Absolute Nucleated RBC x10^3/uL Nucleated RBC % /100WBC Sodium (135-145) mmol/L Potassium (3.5-5.0) mmol/L Chloride (101-111) mmol/L Carbon Dioxide (21-32) mmol/L Anion Gap (6-13) BUN (6-20) mg/dL Creatinine (0.4-1.0) mg/dL Estimated GFR (MDRD) (>89) Glucose (70-100) mg/dL Uric Acid (2.6-7.2) mg/dL Calcium (8.5-10.3) mg/dL Magnesium (1.7-2.8) mg/dL AST (10-42) IU/L ALT (10-60) IU/L Lactate Dehydrogenase 204 (91-225) IU/L Urine Creatinine < 13.0 mg/dL Ur Total Protein Timed 182 mg/dL Protein/Creatinin Ratio 14.0 H (<=0.2) Assessment/Plan - Problem List (1) Chronic hypertension with superimposed preeclampsia Impression: labs normalized. episode of HTN increase Labatol to TID Add Motrin, and oxycodone aria in the back will start DS. (2) Born by forceps delivery Impression: recovering well
[2019-01-02] MEDS: IBUPROFEN 600 MG TABLET PO SCH ×2 (11:11→19:26)
[2019-01-02] MEDS: SULFAMETH/TRIMETH DS 800/160 MG TABLET PO SCH ×2 (11:11→21:05)
[2019-01-02] MEDS ORDERED: LABETALOL 100 MG TABLET PO SCH (16:00)
--- NOTE | 2019-01-02 16:58 | ANESTHESIA POST OP EVALUATION ---
Anesthesia Post Eval - Post Anesthesia Eval CV Function Including HR & BP: positive: Stable : : : Pain Control: positive: Adequate Nausea & Vomiting: positive: Negative : Mental Status: positive: Appropriate Anesthesia Complications: positive: None - Other Details/Therapies Other Details/Therapies: No complications noted from epidural. Patient reports good pain control with labor.
[2019-01-03] MEDS: ACETAMINOPHEN 325 MG TABLET PO PRN (03:27)
[2019-01-03] MEDS: LABETALOL 100 MG TABLET PO SCH (06:23)
--- NOTE | 2019-01-03 08:29 | PROVIDER PROGRESS NOTE ---
Subjective - Prog Note Date Prog Note Date: 01/03/19 Prog Note Time: 08:27 - Subjective Pt reports feeling: Improved (back pain 0/10. valentina NAVARRO, passing flatus) Objective - Vital Signs/Intake & Output Reviewed Vital Signs: Yes Vital Signs: Vital Signs x48h Temp Pulse Resp BP BP Pulse Ox 01/03/19 06:22 131/84 H 01/03/19 03:26 95 132/86 H 01/03/19 00:58 37.1 C 82 16 122/83 H 98 Intake & Output: Intake & Output 12/31/18 01/01/19 01/02/19 01/03/19 23:59 23:59 23:59 23:59 Intake Total 320 3175 600 Output Total 551 3050 1950 Balance -231 125 -1350 - Objective General Appearance: positive: No acute distress, Alert Respiratory: positive: Chest non-tender, No respiratory distress, Breath sounds nml Cardiovascular: positive: Regular rate & rhythm, No murmur, No gallop, Irregularly irregular Abdomen: positive: Non-tender, Nml bowel sounds, No distention, Mass (mass U-2) Back: positive: Nml inspection (epidural site is nonerythematous. brusing seen) Extremities: negative: Pedal edema, Calf tenderness, Kaleb's sign/cords - Lab Results Fish Bones: 01/02/19 08:00 01/01/19 14:18 Other Labs: Lab Results x24hrs 01/02/19 01/02/19 01/02/19 Range/Units 09:05 08:00 08:00 WBC 10.6 (4.8-10.8) x10^3/uL RBC 3.01 L (4.20-5.40) 10^6/uL Hgb 9.6 L (12.0-16.0) g/dL Hct 27.5 L (37.0-47.0) % MCV 91.3 (81.0-99.0) fL MCH 31.8 H (27.0-31.0) pg MCHC 34.9 (32.0-36.0) g/dL RDW 15.4 H (12.0-15.0) % Plt Count 228 (130-450) 10^3/uL MPV 7.9 (7.9-10.8) fL Neut # (Auto) 8.1 H (1.5-6.6) 10^3/uL Lymph # (Auto) 1.6 (1.5-3.5) 10^3/uL Tompkins # (Auto) 0.7 (0.0-1.0) 10^3/uL Eos # (Auto) 0.1 (0.0-0.7) 10^3/uL Baso # (Auto) 0.0 (0.0-0.1) 10^3/uL Absolute Nucleated RBC 0.00 x10^3/uL Nucleated RBC % 0.0 /100WBC Uric Acid 4.3 (2.6-7.2) mg/dL AST 18 (10-42) IU/L ALT 10 (10-60) IU/L Lactate Dehydrogenase (91-225) IU/L Urine Creatinine 46.0 mg/dL Ur Total Protein Timed 16 mg/dL Protein/Creatinin Ratio 0.3 H (<=0.2) 01/02/19 Range/Units 08:00 WBC (4.8-10.8) x10^3/uL RBC (4.20-5.40) 10^6/uL Hgb (12.0-16.0) g/dL Hct (37.0-47.0) % MCV (81.0-99.0) fL MCH (27.0-31.0) pg MCHC (32.0-36.0) g/dL RDW (12.0-15.0) % Plt Count (130-450) 10^3/uL MPV (7.9-10.8) fL Neut # (Auto) (1.5-6.6) 10^3/uL Lymph # (Auto) (1.5-3.5) 10^3/uL Tompkins # (Auto) (0.0-1.0) 10^3/uL Eos # (Auto) (0.0-0.7) 10^3/uL Baso # (Auto) (0.0-0.1) 10^3/uL Absolute Nucleated RBC x10^3/uL Nucleated RBC % /100WBC Uric Acid (2.6-7.2) mg/dL AST (10-42) IU/L ALT (10-60) IU/L Lactate Dehydrogenase 226 H (91-225) IU/L Urine Creatinine mg/dL Ur Total Protein Timed mg/dL Protein/Creatinin Ratio (<=0.2) Assessment/Plan - Problem List (1) Chronic hypertension with superimposed preeclampsia Impression: blood pressure well controlled. Pt has a Hx of cHTN will discharge to home Discharge meds Motrin 600 mg Colace 100 mg Septra DS 5 days total. Discussed breast feeding, contraception. RTC 1 week
[2019-01-03] MEDS: SULFAMETH/TRIMETH DS 800/160 MG TABLET PO SCH (09:23)
[2019-01-03] MEDS: DOCUSATE SODIUM 100 MG CAPSULE PO PRN (09:23)
[2019-01-03] MEDS: LORATADINE 10 MG TABLET PO SCH (09:24)
[2019-01-03] MEDS: IBUPROFEN 600 MG TABLET PO SCH (09:25)
--- NOTE | 2019-01-03 09:29 | DISCHARGE SUMMARY ---
Physician: Avni Avila MD DATE OF ADMISSION: 12/31/2018 DATE OF DISCHARGE: 01/03/2019 ADMITTING DIAGNOSES 1. Chronic hypertension. 2. Superimposed preeclampsia. 3. History of herpes simplex virus. 4. Group B strep positive. 5. Chronic hypokalemia. 6. Anxiety and depression. DISCHARGE DIAGNOSES 1. Chronic hypertension. 2. Superimposed preeclampsia. 3. History of herpes simplex virus. 4. Group B strep positive. 5. Chronic hypokalemia. 6. Anxiety and depression. PROCEDURES 1. Magnesium sulfate. 2. Pitocin induction. 3. Spontaneous vaginal delivery. IDENTIFICATION: Patient is a 28-year-old G3, P2 female who is due on 01/27/2019. She was 36-10/12 wee ks EGA based on first trimester ultrasound. She was admitted for induction of labor secondary to chr onic hypertension with superimposed preeclampsia and severe features. She had developed blurred visi on as well as persistent headache, which was new onset. Throughout her , she had been maint ained on labetalol, which was utilized on a p.r.n. basis because her pressures for the most part had been normal. On admission, she spiked a blood pressure of 170/110, which responded to hydralazine. LABORATORIES: On admission, her AST was 45. This normalized to 18 the day before discharge. Her so dium was 132. Initially, her potassium was 3.3, but responded to oral potassium. Her creatinine ini tially was 0.7, but fell to 0.5. Her protein creatinine ratio on admission was 0.2. She had a spuri ous result of 14.0, which was contained with protein and blood. Her followup on the was 0.3. CB C on admission was 10.9. She fell to 9.6 prior to discharge. Her white count reached a zenith of 14 .9, but prior to discharge it was 10.6. Her platelets remained stable in the 200 range throughout he r entire stay. HOSPITAL COURSE: Patient admitted at which time she was started on magnesium sulfate as well as Bartolo nasreen. An epidural was administered, which gave her good pain control. She reached complete and had a n uncomplicated spontaneous vaginal delivery with an with Apgars of 7 and 9. Loose nuchal cor d was easily reduced. A segment of cord was sent for cord gases, which were 7.3 and 7.38. Pitocin w as used to help the uterus contract. She had a brief third stage. Placenta was delivered spontaneou sly. She had aggressive treatment with Cytotec for her uterine contraction. , she receive d 2 bags of IV Pitocin. She was continued on her magnesium sulfate for 48 hours. Following delivery , she had some mild blood pressure elevations, which were treated with labetalol. She was discharged to home on 100 mg t.i.d. After delivery, she complained of back pain. Upon inspecting the epidural site, it showed some bruising. She was started on Septra-DS. She is being discharged to home today . DISCHARGE MEDICATIONS 1. Motrin 600 mg. 2. Colace 100 mg. 3. Septra-DS, total of 5 days. We have discussed , its advantages. We have discussed that is not adequat e contraception. We will be seeing her back in the office in 1 week for repeat blood pressure evalua tion. TD: 01/03/2019 08:54
[2019-01-03 12:12] VITALS: BP 148/85
== END 2019-01-03 12:30 | disposition home or self-care (01) | DRG 806 ==
LOC: WFO 10:46 → FBP 10:49 → WFO 13:00
PROVIDERS: ADMIT Obstetrics & Gynecology; ATTEND Obstetrics & Gynecology
PROC: 10907ZC Drainage of Amniotic Fluid, Therapeutic from Products of Conception, Via Natural or Artificial Opening (ICD-10-PCS; 2018-12-31)
PROC: 10E0XZZ Delivery of Products of Conception, External Approach (ICD-10-PCS; principal; 2019-01-01)
DX: O11.4 Pre-existing hypertension with pre-eclampsia, complicating childbirth (principal); O98.52 Other viral diseases complicating childbirth; Z37.0 Single live birth; Z3A.36 36 weeks gestation of pregnancy; O99.824 Streptococcus B carrier state complicating childbirth; E87.6 Hypokalemia; O99.344 Other mental disorders complicating childbirth; F41.9 Anxiety disorder, unspecified; O99.02 Anemia complicating childbirth; D51.9 Vitamin B12 deficiency anemia, unspecified; O69.81X0 Labor and delivery complicated by cord around neck, without compression, not applicable or unspecified; B00.9 Herpesviral infection, unspecified
CPT/HCPCS: 36415; 59025; 80048; 80053; 82306; 82565; 82570; 82607; 83540; 83615; 83735; 84156; 84450; 84460; 84550; 85025; 86850; 86900; 86901; A9270; J0690; J7120; 85027; 99215

== ENCOUNTER 2019-01-11 11:51 | Outpatient (CLI) | payer MEDICAID ==
[2019-01-11 12:04] LABS: HGB - HEMOGLOBIN 11.2 g/dL (12.0-16.0); MEAN CORPUSCULAR HEMOGLOBIN 31.3 pg (27.0-31.0); MEAN CORPUSCULAR HGB CONC 33.9 g/dL (32.0-36.0); MEAN CORPUSCULAR VOLUME 92.4 fL (81.0-99.0); MEAN PLATELET VOLUME 6.7 fL (7.9-10.8); RED BLOOD COUNT 3.57 10^6/uL (4.20-5.40); RED CELL DISTRIBUTION WIDTH 14.7 % (12.0-15.0); WHITE BLOOD COUNT 7.5 x10^3/uL (4.8-10.8)
== END 2019-01-11 11:52 | disposition home or self-care (01) ==
LOC: LAB 11:51
PROVIDERS: ATTEND Obstetrics & Gynecology
DX: D50.9 Iron deficiency anemia, unspecified (principal)
CPT/HCPCS: 36415; 85027

== ENCOUNTER 2019-02-04 10:21 | Outpatient (CLI) | payer MEDICAID ==
[2019-02-04 10:38] LABS: HGB - HEMOGLOBIN 12.9 g/dL (12.0-16.0); MEAN CORPUSCULAR HGB CONC 33.7 g/dL (32.0-36.0); MEAN CORPUSCULAR VOLUME 88.9 fL (81.0-99.0); MEAN PLATELET VOLUME 7.2 fL (7.9-10.8); RED BLOOD COUNT 4.3 10^6/uL (4.20-5.40); RED CELL DISTRIBUTION WIDTH 13.6 % (12.0-15.0); WHITE BLOOD COUNT 6.2 x10^3/uL (4.8-10.8)
== END 2019-02-04 10:22 | disposition home or self-care (01) ==
LOC: LAB 10:21
PROVIDERS: ATTEND Obstetrics & Gynecology
DX: E53.8 Deficiency of other specified B group vitamins (principal); D50.9 Iron deficiency anemia, unspecified; E87.6 Hypokalemia
CPT/HCPCS: 36415; 82607; 82728; 83540; 84132; 84466; 85027

== ENCOUNTER 2019-02-17 09:21 | Day surgery (SDC) | payer MEDICAID ==
--- NOTE | 2019-02-17 08:23 | HISTORY & PHYSICAL EXAMINATION ---
HPI - History of Present Illness HPI Comment/Other: CC: preop HPI: AUB changing a pad or tampon [id number] for the first few days of menses. Chronic since teens. CPP with dysmenorrhea: 2d of pain each menses unable to work or to leave the house. Midline cramping feels like labor. Hurts when she feels an urge to have a BM but then nothing comes out. Usually daily BM but less frequent during menses and is not avoiding BM due to pain. no BRBPR. No urinary sx. Dyspareunia present. With the CPP she has failed multiple medical tx Allergies: Vicodin--N/V, amoxicillin throat swells PMH: HTN chronic Chronic hypokalemia: normal 24h potassium excretion, Cr, GFR, al dosterone, renin, mag, phos, and TSH in 2018 Depression/anx Iron deficiency anemia treated with IV iron 2018 Vitamin B12 deficiency treated with IM B12 2018 Vit D deficiency was 8 in 12/2018 Chronic pelvic pain Dysmenorrhea Dyspareunia Abdominal pain etiology unknown Chronic low back pain Piriformis syndrome Muscle spasms 2 bilateral trapezius, sternocleidomastoid and occipital muscles. PSH: neg SH: no t/e/d. Delivered 6w ago. Meds: Nifedipine XL 30mg daily, Lexapro 10mg daily, Vitamin D FH: no anesthesia complications ROS: feeling well, no fevers, no cough, no feeling that she has a URI. O: AVSS Alert, NAD Cor RRR no murmurs Lungs CTA bilat A/P: 28yo P2 6w s/p . Long hx of CPP, dysmenorrhea, and deep dyspareunia and has been planning a hyst for years--to be performed after completion of childbearing. Pt is recently and wants her surgery now--declines waiting until later to give her more time to adjust to new family dynamic and workload. Dysmenorrhea is severe--unable to leave house for 2d of menses. Some pain episodes between menses that feel exactly the same as her dysmenorrhea. Dyspareunia present. Dyschezia present during menses only. No BRBPR. has failed OCP, mirena IUD, nexplanon, and depo. Pt desires hyst and has for years. She discussed this with Dr. Hill at the beginning of the . Has signed federal tubal papers. Discussed that I anticipate that hyst will help with pain but it may NOT be cured by hyst. Reviewed surgery and recovery. Recommended retention of ovaries with the risk of less CPP control, poss ovarian cysts, poss ovarian cancer, poss need for ovarian surgery in the future. Benefit of retention is to delay menopause and has been shown NOT to affect lifespan as oophorectomy does. Pt agrees. Will do total hyst with salpingectomy bilat. May close from above or from below depending on her intraoperative anatomy. Risks include bleeding, infection, trauma to local organs, anesthesia complications, and failure to cure pain. All questions answered and the consent was signed. 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 : positive: Kidney stones HEENT: positive: None Psych: positive: None, Depression Musculoskeletal: positive: None Derm: positive: None MRSA Hx?: No Social & Family Hx - Social History Does the pt smoke?: No Smoking Status: Never smoker Does the pt drink ETOH?: No Does the pt have substance abuse?: No - POLST Patient has POLST: No Meds/Allgy - Home Medications Home Medications: Ambulatory Orders Medication Instructions Recorded Confirmed Escitalopram [Lexapro] 10 mg PO DAILY 02/15/19 02/17/19 Nifedipine [Afeditab Cr] 30 mg PO DAILY 02/15/19 02/17/19 - Allergies Allergies/Adverse Reactions: Allergies Allergy/AdvReac Type Severity Reaction Status Date / Time amoxicillin Allergy Severe tightness Verified 02/17/19 07:10 in throat Results - Lab Results Fish Bones: 02/17/19 10:04 02/17/19 10:04
[~2019-02-17 09:21] MED LIST: CLINDAMYCIN IV 900 MG/50 ML IV ONE; GENTAMICIN IV ONE; SODIUM CHLORIDE 0.9% IV ONE
[2019-02-17] MEDS ORDERED: METHYLENE BLUE 0.5% 50 MG/10 ML AMPULE ONE (09:40)
[2019-02-17] MEDS ORDERED: LACTATED RINGERS 1,000 ML IV ONE ×3 (09:46→17:09)
[2019-02-17 10:03] LABS: HCG UR QUAL NEGATIVE
[2019-02-17 10:10] LABS: BASOPHILS % (AUTO) 0.7 %; EOSINOPHILS # (AUTO) 0.1 10^3/uL (0.0-0.7); EOSINOPHILS % (AUTO) 2.5 %; LYMPHOCYTES # (AUTO) 1.6 10^3/uL (1.5-3.5); LYMPHOCYTES % (AUTO) 28.2 %; MEAN CORPUSCULAR HEMOGLOBIN 29.5 pg (27.0-31.0); MEAN CORPUSCULAR HGB CONC 33.3 g/dL (32.0-36.0); MEAN CORPUSCULAR VOLUME 88.6 fL (81.0-99.0); MEAN PLATELET VOLUME 7.6 fL (7.9-10.8); MONOCYTES # (AUTO) 0.3 10^3/uL (0.0-1.0); MONOCYTES % (AUTO) 5.6 %; NEUTROPHILS # (AUTO) 3.5 10^3/uL (1.5-6.6); PLT - PLATELET COUNT 281 10^3/uL (130-450); RED BLOOD COUNT 4.42 10^6/uL (4.20-5.40); RED CELL DISTRIBUTION WIDTH 13.7 % (12.0-15.0); WHITE BLOOD COUNT 5.6 x10^3/uL (4.8-10.8)
[2019-02-17 10:21] LABS: ALBUMIN 4.5 g/dL (3.2-5.5); ALBUMIN/GLOBULIN RATIO 1.5 (1.0-2.2); BILIRUBIN,TOTAL 0.9 mg/dL (0.2-1.0); CALCIUM 9.3 mg/dL (8.5-10.3); CREATININE 0.8 mg/dL (0.4-1.0); TOTAL PROTEIN 7.6 g/dL (6.7-8.2)
--- NOTE | 2019-02-17 10:21 | ANESTHESIA ---
Pre-Anesthesia VS, & Labs - Diagnosis Chronic pelvic pain - Procedure Lap assisted vaginal hysterectomy, benjy salpingectomy Height 5 ft 1 in Body Mass Index 20.0 - NPO >8 hours Last Food Intake: Water with pills at 1045 - Is Patient ?: No - Lab Results Lab results reviewed: Yes Fish Bones: 02/17/19 10:04 02/17/19 10:04 Home Medications and Allergies Home Medications: Ambulatory Orders Escitalopram [Lexapro] 10 mg PO DAILY 02/15/19 Nifedipine [Afeditab Cr] 30 mg PO DAILY 02/15/19 Escitalopram [Lexapro] 10 mg PO DAILY 02/15/19 Nifedipine [Afeditab Cr] 30 mg PO DAILY 02/15/19 Allergies/Adverse Reactions: Allergies Allergy/AdvReac Type Severity Reaction Status Date / Time amoxicillin Allergy Severe tightness Verified 02/17/19 07:10 in throat Anes History & Medical History - Anesthetic History Anesthesia Complications: reports: Other-see comment (No history) Family history of Anesthesia Complications: Denies Family history of Malignant Hyperthermia: Denies - Medical History Cardiovascular: reports: Hypertension Pulmonary: reports: None Gastrointestinal: reports: None Urinary: reports: Kidney stones Neuro: reports: None, Other Musculoskeletal: reports: None Endocrine/Autoimmune: reports: None Blood Disorders: reports: None Skin: reports: None Smoking Status: Never smoker Psychosocial: reports: No issues indicated Exam General: Alert Dental: WNL Mouth Openin Fingerbreadth Neck Mobility: Normal Mallampati classification: II Thyromental Distance: 4-6 cm Respiratory: Lungs clear Cardiovascular: Regular rate Neurological: Normal speech Mental/Cognitive Status: Alert/Oriented X3 Cognitive Status: Within normal limits Plan Anesthesia Type: General Consent for Procedure(s) Verified and Reviewed: Yes Code Status: Attempt Resuscitation ASA classification: 2-Mild systemic disease Is this case an emergency?: No
[2019-02-17] MEDS ORDERED: GABAPENTIN 400 MG CAPSULE ONE (10:28)
[2019-02-17] MEDS ORDERED: MIDAZOLAM 2 MG/2 ML VIAL IVP ONE (12:30)
[2019-02-17] MEDS ORDERED: ONDANSETRON 4 MG/2 ML VIAL IVP ONE (12:30)
[2019-02-17] MEDS ORDERED: ROCURONIUM 50 MG/5 ML VIAL IVP ONE (12:30)
[2019-02-17] MEDS ORDERED: PROPOFOL 200 MG/20 ML VIAL IVP ONE (12:30)
[2019-02-17] MEDS ORDERED: fentaNYL 100 MCG/2 ML VIAL IVP ONE (12:30)
[2019-02-17] MEDS ORDERED: DEXAMETHASONE 4 MG/ML VIAL IVP ONE (12:30)
[2019-02-17] MEDS ORDERED: GLYCOPYRROLATE 1 MG/5 ML VIAL IVP ONE (12:30)
[2019-02-17] MEDS ORDERED: NEOSTIGMINE 1 MG/1 ML 10 ML MDV IVP ONE (12:30)
[2019-02-17] MEDS ORDERED: LIDOCAINE-MPF 2% 5 ML VIAL IM ONE (12:30)
[2019-02-17] MEDS ORDERED: BUPIVACAINE 0.5%-EPI 1:200000 PF 30 ML VIAL SUBQ ONE ×3 (12:35)
[2019-02-17] MEDS ORDERED: ACETAMINOPHEN 1,000 MG/100 ML 100 ML IV ONE (14:16)
[2019-02-17] MEDS ORDERED: oxyCODONE 5 MG TABLET PO PRN (14:17)
[2019-02-17] MEDS ORDERED: HYDROmorphone 0.5 MG/0.5 ML SYRINGE IVP PRN (14:17)
[2019-02-17] MEDS ORDERED: PROMETHAZINE INJ 12.5 MG in SODIUM CHLORIDE 0.9% 50 ML IV PRN (14:19)
--- NOTE | 2019-02-17 14:23 | OPERATIVE REPORT ---
Operative Report - Other Other Information/Narrative: Preop: CPP, dysmenorrhea, dyspareunia Postop: same Procedure: LAVH, bilat salpingectomy Surg: Franko Assist: Cookie Anesth: GETA EBL 100cc IVF 1100cc UOP 350cc Complic: none Dispo: extended recovery --> home anticipated Specimens: uterus, cx, tubes Findings: normal pelvis
[2019-02-17] MEDS ORDERED: ACETAMINOPHEN 500 MG TABLET PO SCH (15:00)
[2019-02-17] MEDS ORDERED: IBUPROFEN 600 MG TABLET PO SCH (18:00)
[2019-02-17 18:28] VITALS: BP 102/60
[2019-02-17] MEDS ORDERED: DOCUSATE SODIUM 100 MG CAPSULE PO SCH (21:00)
== END 2019-02-17 19:03 | disposition home or self-care (01) ==
LOC: SDS 09:21 → MS2 18:00 → SDS 19:03
PROVIDERS: ATTEND Obstetrics & Gynecology
PROC: 0UT7FZZ Resection of Bilateral Fallopian Tubes, Via Natural or Artificial Opening With Percutaneous Endoscopic Assistance (ICD-10-PCS; 2019-02-17)
PROC: 0UT9FZZ Resection of Uterus, Via Natural or Artificial Opening With Percutaneous Endoscopic Assistance (ICD-10-PCS; principal; 2019-02-17 10:45)
DX: R10.2 Pelvic and perineal pain (principal); G89.29 Other chronic pain; N94.6 Dysmenorrhea, unspecified; N94.12 Deep dyspareunia; F32.9 Major depressive disorder, single episode, unspecified; I10 Essential (primary) hypertension; R00.1 Bradycardia, unspecified
CPT/HCPCS: 36415; 58552; 80053; 81025; 85025; A9270; J7120

== ENCOUNTER 2019-02-26 15:49 | Outpatient (CLI) | payer MEDICAID | END 2019-02-26 15:50 | disposition home or self-care (01) | LOC: LAB.R 15:49 | PROVIDERS: ATTEND Obstetrics & Gynecology | DX: N30.00 Acute cystitis without hematuria (principal) | CPT/HCPCS: 87086 ==

== ENCOUNTER 2019-03-06 20:32 | Emergency (ER) | payer MEDICAID ==
--- NOTE | 2019-03-06 21:32 | ED Physician Documentation ---
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 - Present Medications Home Medications: Ambulatory Orders Medication Instructions Recorded Confirmed Escitalopram [Lexapro] 10 mg PO DAILY 02/15/19 02/17/19 Nifedipine [Afeditab Cr] 30 mg PO DAILY 02/15/19 02/17/19 Cephalexin [Keflex] 500 mg PO TID #21 capsule 03/07/19 Hydrocodone/Acetaminophen [[place] 1 each PO Q6H PRN #15 tablet 03/07/19 5-325 Tablet] Naproxen 375 mg PO BID #20 tablet 03/07/19 - Allergies Allergies/Adverse Reactions: Allergies Allergy/AdvReac Type Severity Reaction Status Date / Time amoxicillin Allergy Severe tightness Verified 02/17/19 07:10 in throat - Social History Does the pt smoke?: No Smoking Status: Never smoker Does the pt drink ETOH?: No Does the pt have substance abuse?: No - Immunizations Immunizations are current?: Yes - POLST Patient has POLST: No Results - Vitals Vitals: Vital Signs - 24 hr 03/07/19 03/07/19 00:00 01:10 Temperature 36.4 C L Heart Rate 76 70 Respiratory 16 16 Rate Blood Pressure 148/100 H 127/96 H O2 Saturation 100 98 Oxygen O2 Source Room air - Labs Labs: Laboratory Tests 03/06/19 03/06/19 03/06/19 21:28 21:28 21:28 WBC 8.2 RBC 3.93 L Hgb 11.3 L Hct 34.2 L MCV 86.8 MCH 28.7 MCHC 33.1 RDW 14.2 Plt Count 571 H MPV 7.1 L Neut # (Auto) 5.6 Lymph # (Auto) 1.8 [place] # (Auto) 0.6 Eos # (Auto) 0.2 Baso # (Auto) 0.1 Absolute Nucleated RBC 0.01 Nucleated RBC % 0.1 Sodium 139 Potassium 3.7 Chloride 102 Carbon Dioxide 26 Anion Gap 11.0 BUN 13 Creatinine 0.7 Estimated GFR (MDRD) 99 Glucose 92 Calcium 9.6 Total Bilirubin 0.6 AST 16 ALT 15 Alkaline Phosphatase 115 Total Protein 8.1 Albumin 4.2 Globulin 3.9 Albumin/Globulin Ratio 1.1 Lipase 33 Urine Color YELLOW Urine Clarity CLEAR Urine pH 6.0 Ur Specific [place] 1.020 Urine Protein 100 H Urine Glucose (UA) NEGATIVE Urine Ketones NEGATIVE Urine Occult Blood LARGE H Urine Nitrite POSITIVE H Urine Bilirubin NEGATIVE Urine Urobilinogen 1 (NORMAL) Ur Leukocyte Esterase SMALL H Urine RBC 11-25 H Urine WBC >25 H Ur Squamous Epith Cells MANY Squamous H Urine Crystals 3-5 Calcium Oxalate Urine Bacteria Few Ur Microscopic Review INDICATED Urine Culture Comments NOT INDICATED Procedures - General procedure General procedure: Speculum exam showed some mild bleeding from a portion of the cuff tissue. No apparent dehiscence. No purulence nor redness to suggest infection. I used some silver nitrate at the area of bleeding. Then used some TXA on cotton ball and held it in place over the site for couple of minutes. The bleeding appeared stopped. I then placed Gelfoam over the bleeding site and sprayed a little more of the TXA. Still no apparent bleeding. PD MEDICAL DECISION MAKING - ED course Complexity details: reviewed old records (operative report reviewed), reviewed results (U/S showing enlargement of both ovaries to about 2 cm. No free fluid to suggest internal bleeding. ), considered differential (cocnern for dehiscence, bleeding internally as well as vaginally, infection among other potential problems. ), d/w patient Departure - Departure Disposition: 01 Home, Self Care Clinical Impression: Postoperative vaginal bleeding UTI (urinary tract infection) Qualifiers: Urinary tract infection type: acute cystitis Hematuria presence: with hematuria Qualified Code(s): N30.01 - Acute cystitis with hematuria Abdominal pain Qualifiers: Abdominal location: lower abdomen, unspecified Qualified Code(s): R10.30 - Lower abdominal pain, unspecified Condition: Stable Record reviewed to determine appropriate education?: Yes Instructions: ED UTI Cystitis Female Follow-Up: Ericka Abdul MD [Provider Admit Priv/Credential] - Demetrio Alarcon PA-C [Primary Care Provider] - Prescriptions: Cephalexin [Keflex] 500 mg PO TID #21 capsule Hydrocodone/Acetaminophen [[place] 5-325 Tablet] 1 each PO Q6H PRN #15 tablet PRN Reason: Pain Naproxen 375 mg PO BID #20 tablet Comments: Hydrated. Naproxen anti-inflammatory twice daily for the next week. Add Tylenol or hydrocodone if needed for pains. Cephalexin 3 times a day for a week for the urinary tract infection. The urinary tract infection can account for likely your abdominal pain as well as the blood in the urine. There was still some bleeding from the cough and the vaginal backwall from the surgery. I did cauterize it and also put a absorbable gel foam in the area. See if that stops the bleeding over the next day or 2. There is no signs of infection on exam. Follow-up with your gynecology as planned this coming Friday if you are feeling better. Call them Friday for follow-up sooner if you are not completely well. Discharge Date/Time: 03/07/19 01:23
[2019-03-06 21:35] LABS: BASOPHILS # (AUTO) 0.1 10^3/uL (0.0-0.1); EOSINOPHILS # (AUTO) 0.2 10^3/uL (0.0-0.7); EOSINOPHILS % (AUTO) 2.6 %; HGB - HEMOGLOBIN 11.3 g/dL (12.0-16.0); LYMPHOCYTES # (AUTO) 1.8 10^3/uL (1.5-3.5); LYMPHOCYTES % (AUTO) 21.5 %; MEAN CORPUSCULAR HEMOGLOBIN 28.7 pg (27.0-31.0); MEAN CORPUSCULAR HGB CONC 33.1 g/dL (32.0-36.0); MEAN CORPUSCULAR VOLUME 86.8 fL (81.0-99.0); MEAN PLATELET VOLUME 7.1 fL (7.9-10.8); MONOCYTES # (AUTO) 0.6 10^3/uL (0.0-1.0); MONOCYTES % (AUTO) 6.7 %; NEUTROPHILS # (AUTO) 5.6 10^3/uL (1.5-6.6); NEUTROPHILS % (AUTO) 68.2 %; PLT - PLATELET COUNT 571 10^3/uL (130-450); RED BLOOD COUNT 3.93 10^6/uL (4.20-5.40); RED CELL DISTRIBUTION WIDTH 14.2 % (12.0-15.0); WHITE BLOOD COUNT 8.2 x10^3/uL (4.8-10.8)
[2019-03-06 21:37] LABS: GLUCOSE, URINE (UA) NEGATIVE (NEGATIVE); KETONES,URINE (UA) NEGATIVE (NEGATIVE); LEUKOCYTE ESTERASE, URINE SMALL (NEGATIVE); NITRITE,URINE POSITIVE (NEGATIVE); OCCULT BLOOD,URINE LARGE (NEGATIVE); PROTEIN,URINE 100 mg/dL (NEGATIVE); UROBILINOGEN,URINE 1 (NORMAL) E.U./dL (NORMAL)
[2019-03-06 21:39] LABS: BILIRUBIN,URINE NEGATIVE (NEGATIVE); CLARITY,URINE CLEAR (CLEAR); ICTOTEST,URINE NEGATIVE
[2019-03-06 21:47] LABS: ALBUMIN 4.2 g/dL (3.2-5.5); ALBUMIN/GLOBULIN RATIO 1.1 (1.0-2.2); BACTERIA,URINE Few /HPF (None Seen); BILIRUBIN,TOTAL 0.6 mg/dL (0.2-1.0); CALCIUM 9.6 mg/dL (8.5-10.3); CREATININE 0.7 mg/dL (0.4-1.0); CRYSTALS,URINE 3-5 Calcium Oxalate /LPF; SQUAMOUS EPITHELIAL CELL,UR MANY Squamous (<= Few); TOTAL PROTEIN 8.1 g/dL (6.7-8.2)
[2019-03-06] MEDS ORDERED: KETOROLAC 15 MG/ML VIAL IVP STA (21:57)
[2019-03-06] MEDS ORDERED: SODIUM CHLORIDE 0.9% 1,000 ML IV ONE (21:57)
[2019-03-06] MEDS ORDERED: MORPHINE 2 MG/ML SYRINGE IVP STA (21:57)
[2019-03-06] MEDS ORDERED: TRANEXAMIC ACID 1,000 MG/10 ML VIAL NAS STA (21:58)
[2019-03-06] MEDS ORDERED: cefTRIAXone 1 GM VIAL IVP STA (22:34)
--- NOTE | 2019-03-07 00:38 | Ultrasound Report ---
Reason: pelvic pain and bleeding, post hyst Procedure Date: 03/06/2019 Accession Number: [id number] / [id number] Procedure: US - Pelvic w/Transvag+Doppler Ltd CPT Code: FULL RESULT: EXAM: PELVIC ULTRASOUND EXAM DATE: 03/06/2019 11:19 PM. CLINICAL HISTORY: Pelvic pain and bleeding, post hyst. COMPARISON: None. TECHNIQUE: Realtime transabdominal pelvic scan performed to identify the uterus and adnexa and as an overview of other pelvic structures, followed by transvaginal scan to provide greater detail of the uterus and adnexa, with static image documentation. FINDINGS: Uterus: Surgically absent. Right Ovary: 4.6 x 2.9 x 3.8 cm, volume 26.5 cc. Heterogeneous echogenicity. There is a complex cyst measuring 2.7 x 2.3 x 2.3 cm. Vascularity demonstrated. Left Ovary: 5.4 x 3.6 x 4.8 cm, volume 49.0 cc. Heterogeneous echogenicity. There is a complex cyst measuring 2.1 x 2.7 x 2.2 cm. Vascularity demonstrated. Free Fluid: None. Other: None. IMPRESSION: 1. The uterus is surgically absent. 2. The ovaries are enlarged. 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 Vascularity demonstrated to the ovaries during the course of the examination. RADIA
[2019-03-07 01:11] VITALS: BP 127/96
== END 2019-03-07 01:23 | disposition home or self-care (01) ==
LOC: ED 20:32
DX: N99.820 Postprocedural hemorrhage of a genitourinary system organ or structure following a genitourinary system procedure (principal); N30.01 Acute cystitis with hematuria; I10 Essential (primary) hypertension; R10.30 Lower abdominal pain, unspecified
CPT/HCPCS: 36415; 76830; 76856; 80053; 81001; 83690; 85025; 93976; 96361; 96374; 96375; 99283; 99284; J2270; 81003; 87086

== ENCOUNTER 2019-03-08 10:55 | Outpatient (CLI) | payer MEDICAID ==
--- NOTE | 2019-03-08 11:50 | XRAY Report ---
Reason: CONSTIPATION Procedure Date: 03/08/2019 Accession Number: [id number] / [id number] Procedure: XRN - Abdomen 1 View X-Ray CPT Code: 51215 FULL RESULT: EXAM: ABDOMEN RADIOGRAPHY EXAM DATE: 03/08/2019 11:09 AM. CLINICAL HISTORY: Constipation. COMPARISON: ABDOMEN 2 VIEW 04/01/2017 5:43 PM. TECHNIQUE: 1 view. FINDINGS: Bowel Gas Pattern: Within normal limits. No dilated loops. Moderate stool burden is seen in the ascending and transverse colon. No significant stool burden in the descending or sigmoid distribution. Other: None. IMPRESSION: Normal 1-view abdomen x-ray. RADIA
== END 2019-03-08 10:56 | disposition home or self-care (01) ==
LOC: DI.N 10:55
PROVIDERS: ATTEND Obstetrics & Gynecology
DX: K59.00 Constipation, unspecified (principal)
CPT/HCPCS: 74018

== ENCOUNTER 2019-03-23 08:00 | Outpatient (CLI) | payer MEDICAID ==
[2019-03-23 12:55] LABS: CALCIUM 9.3 mg/dL (8.5-10.3); CREATININE 0.6 mg/dL (0.4-1.0)
== END 2019-03-23 23:59 | disposition home or self-care (01) ==
LOC: LAB.N 08:00
PROVIDERS: ATTEND Physician Assistant Medical
DX: I10 Essential (primary) hypertension (principal)
CPT/HCPCS: 36415; 80048

== ENCOUNTER 2019-04-16 14:27 | Emergency (ER) | payer MEDICAID ==
[2019-04-16] MEDS ORDERED: IBUPROFEN 800 MG TABLET PO STA (15:01)
[2019-04-16] MEDS ORDERED: ONDANSETRON ODT 4 MG TABLET TL STA (15:02)
--- NOTE | 2019-04-16 15:05 | ED Physician Documentation ---
History of Present Illness - Stated complaint Stated Complaint: FEVER/ACHING - Chief complaint Chief Complaint: Heent - History obtained from History obtained from: Patient - Additonal information Additional information: The patient is a 28-year-old female who presents with fever and myalgias that started 2 or 3 days ago and have been getting progressively worse. She complains of sore throat, headache, and bilateral earaches. She reports nausea, without vomiting. She denies cough or abdominal pain. She reports history of similar episode about 1 year ago. She is employed in a [employer]. She is status post hysterectomy. Review of Systems Constitutional: reports: Fever, Myalgias, Fatigue Eyes: denies: Discharge Ears: reports: Ear pain (bilaterally) Nose: denies: Congestion Throat: reports: Sore throat Cardiac: denies: Chest pain / pressure Respiratory: denies: Dyspnea, Cough GI: reports: Nausea. denies: Abdominal Pain, Vomiting : reports: Hysterectomy. denies: Dysuria Skin: denies: Rash Musculoskeletal: denies: Back pain, Extremity pain Neurologic: reports: Headache. 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 - Present Medications Home Medications: Ambulatory Orders Medication Instructions Recorded Confirmed Escitalopram [Lexapro] 10 mg PO DAILY 02/15/19 02/17/19 Nifedipine [Afeditab Cr] 30 mg PO DAILY 02/15/19 02/17/19 Cephalexin [Keflex] 500 mg PO TID #21 capsule 03/07/19 Hydrocodone/Acetaminophen [[place] 1 each PO Q6H PRN #15 tablet 03/07/19 5-325 Tablet] Naproxen 375 mg PO BID #20 tablet 03/07/19 cephALEXin [Cephalexin] 500 mg PO TID #20 tablet 04/16/19 - Allergies Allergies/Adverse Reactions: Allergies Allergy/AdvReac Type Severity Reaction Status Date / Time amoxicillin Allergy Severe tightness Verified 04/16/19 14:40 in throat - Social History Does the pt smoke?: No Smoking Status: Never smoker Does the pt drink ETOH?: No Does the pt have substance abuse?: No - Immunizations Immunizations are current?: Yes - POLST Patient has POLST: No PD ED PE NORMAL - Vitals Vital signs reviewed: Yes (febrile and tachycardic) - General General: Alert and oriented X 3, Well developed/nourished, Other (Appears fatigued.) - HEENT HEENT: Atraumatic, PERRL, Pharynx benign, Other (Left tympanic membrane is inflamed appearing; right TM clear.) - Neck Neck: Supple, no meningeal sign, No adenopathy - Cardiac Cardiac: No murmur, Other (Rapid rate, regular rhythm.) - Respiratory Respiratory: No respiratory distress, Clear bilaterally - Abdomen Abdomen: Soft, Non tender - Back Back: No CVA TTP - Derm Derm: No rash - Extremities Extremities: No edema, No calf tenderness / cord - Neuro Neuro: Alert and oriented X 3, No motor deficit, No sensory deficit Results - Vitals Vitals: Vital Signs - 24 hr 04/16/19 04/16/19 14:38 15:45 Temperature 38.3 C H 38.0 C H Heart Rate 136 H 130 H Respiratory 16 16 Rate Blood Pressure 147/111 H 148/91 H O2 Saturation 100 99 Oxygen O2 Source Room air - Labs Labs: Laboratory Tests 04/16/19 04/16/19 14:45 15:20 Influenza A (Rapid) Negative Influenza B (Rapid) Negative Group A Strep Rapid POSITIVE H PD MEDICAL DECISION MAKING - ED course Complexity details: reviewed results, re-evaluated patient, considered differential, d/w patient, d/w family ED course: The patient's presentation is consistent with acute streptococcal pharyngitis, with a positive rapid strep screen. Influenza swab is negative. Her examination does not suggest peritonsillar abscess, meningitis, or pneumonia. Treatment in the emergency department included administration of ibuprofen 800 mg orally, cephalexin 500 mg orally, and normal saline 1 L IV. She is being discharged with prescription for cephalexin. I discussed with her and her the diagnosis, antibiotic treatment and outpatient follow-up, as well as potentially worrisome signs or symptoms that should prompt reevaluation in the emergency department. Departure - Departure Disposition: 01 Home, Self Care Clinical Impression: Strep pharyngitis Condition: Stable Instructions: ED Strep Pharyngitis Conf Follow-Up: Demetrio Alarcon PA-C [Primary Care Provider] - Prescriptions: cephALEXin [Cephalexin] 500 mg PO TID #20 tablet Comments: Gargle with cool liquids. Take cephalexin 3 times daily as prescribed. You can use ibuprofen, up to 800 mg 3 times daily if needed for pain or fever. Follow-up with your primary physician within 1 to 2 weeks. Call to schedule an appointment. Return to the emergency department if you develop increasing difficulty swallowing, or otherwise worsening times. Forms: Activity restrictions
[2019-04-16] MEDS ORDERED: SODIUM CHLORIDE 0.9% 1,000 ML IV ONE (15:06)
[2019-04-16] MEDS ORDERED: cephALEXin 250 MG CAPSULE PO STA (15:44)
[2019-04-16 15:46] VITALS: BP 148/91
== END 2019-04-16 16:00 | disposition home or self-care (01) ==
LOC: ED 14:27
DX: J02.0 Streptococcal pharyngitis (principal); I10 Essential (primary) hypertension
CPT/HCPCS: 87275; 87276; 87430; 96360; 99283; A9270; Q0162

== ENCOUNTER 2019-05-30 11:29 | Emergency (ER) | payer MEDICAID ==
[2019-05-30 12:07] LABS: GLUCOSE, URINE (UA) NEGATIVE (NEGATIVE); KETONES,URINE (UA) NEGATIVE (NEGATIVE); LEUKOCYTE ESTERASE, URINE TRACE (NEGATIVE); NITRITE,URINE NEGATIVE (NEGATIVE); OCCULT BLOOD,URINE LARGE (NEGATIVE); PROTEIN,URINE TRACE mg/dL (NEGATIVE); UROBILINOGEN,URINE 0.2 (NORMAL) E.U./dL (NORMAL)
[2019-05-30] MEDS ORDERED: SODIUM CHLORIDE 0.9% 1,000 ML IV ONE (12:07)
[2019-05-30] MEDS ORDERED: IBUPROFEN 800 MG TABLET PO STA (12:07)
[2019-05-30 12:16] LABS: CLARITY,URINE HAZY (CLEAR)
[2019-05-30 12:19] LABS: BILIRUBIN,URINE NEGATIVE (NEGATIVE); HCG UR QUAL NEGATIVE; ICTOTEST,URINE NEGATIVE
[2019-05-30 12:33] LABS: BASOPHILS % (AUTO) 0.4 %; EOSINOPHILS # (AUTO) 0.1 10^3/uL (0.0-0.7); EOSINOPHILS % (AUTO) 0.6 %; HGB - HEMOGLOBIN 13.5 g/dL (12.0-16.0); LYMPHOCYTES # (AUTO) 1.2 10^3/uL (1.5-3.5); LYMPHOCYTES % (AUTO) 10.7 %; MEAN CORPUSCULAR HGB CONC 33.2 g/dL (32.0-36.0); MEAN CORPUSCULAR VOLUME 84.3 fL (81.0-99.0); MEAN PLATELET VOLUME 9.8 fL (7.9-10.8); MONOCYTES # (AUTO) 0.5 10^3/uL (0.0-1.0); MONOCYTES % (AUTO) 4.2 %; NEUTROPHILS # (AUTO) 9.1 10^3/uL (1.5-6.6); NEUTROPHILS % (AUTO) 83.6 %; PLT - PLATELET COUNT 294 10^3/uL (130-450); RED BLOOD COUNT 4.83 10^6/uL (4.20-5.40); RED CELL DISTRIBUTION WIDTH 14.1 % (12.0-15.0); WHITE BLOOD COUNT 10.8 x10^3/uL (4.8-10.8)
[2019-05-30 12:44] LABS: BACTERIA,URINE Few /HPF (None Seen); RBC,URINE TNTC /HPF (0-5); SQUAMOUS EPITHELIAL CELL,UR FEW Squamous (<= Few)
[2019-05-30 12:49] LABS: ALBUMIN 4.6 g/dL (3.2-5.5); ALBUMIN/GLOBULIN RATIO 1.3 (1.0-2.2); BILIRUBIN,TOTAL 0.7 mg/dL (0.2-1.0); CALCIUM 9.4 mg/dL (8.5-10.3); CREATININE 0.6 mg/dL (0.4-1.0); TOTAL PROTEIN 8.2 g/dL (6.7-8.2)
[2019-05-30] MEDS ORDERED: fentaNYL 100 MCG/2 ML VIAL IVP STA (12:54)
[2019-05-30] MEDS ORDERED: ONDANSETRON 4 MG/2 ML VIAL IVP STA (12:55)
--- NOTE | 2019-05-30 12:58 | ED Physician Documentation ---
PD HPI ABD PAIN - Stated complaint Stated Complaint: NAVARRO/Side pain - Chief complaint Chief Complaint: General - History obtained from History obtained from: Patient - History of Present Illness Timing - onset: How many weeks ago (2) Timing - duration: Weeks (1) Timing - details: Waxing and waning Quality: Aching Location: Other (Left flank.) Radiation: Left flank Associated symptoms: Nausea, Vomiting, Hematuria (2 days ago.) Similar symptoms before: Diagnosis (History of kidney stones during .) - Additional information Additional information: The patient is a 28-year-old female who presents with left-sided abdominal pain that has been intermittent for the past week. She reports associated nausea, with vomiting this morning. She denies fever, dysuria, cough or shortness of breath. She did notice hematuria 2 days ago. On further review of systems she complains of frontal headache. She denies sore throat. Her past medical history is significant for kidney stones during her pregnancies. Review of Systems Constitutional: denies: Fever Nose: reports: Congestion (mild) Throat: denies: Sore throat Cardiac: denies: Chest pain / pressure Respiratory: denies: Dyspnea, Cough GI: reports: Abdominal Pain, Nausea, Vomiting. denies: Diarrhea : reports: Hematuria (2 days ago.). 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 - Present Medications Home Medications: Ambulatory Orders Medication Instructions Recorded Confirmed Nifedipine [Afeditab Cr] 30 mg PO DAILY 02/15/19 02/17/19 Oxycodone HCl/Acetaminophen 1 - 2 each PO Q6H PRN #14 tablet 05/30/19 [Percocet 5-325 mg Tablet] Promethazine [Phenergan] 25 mg PO Q6H PRN #10 tab 05/30/19 Tamsulosin [Flomax] 0.4 mg PO DAILY #7 capsule 05/30/19 - Allergies Allergies/Adverse Reactions: Allergies Allergy/AdvReac Type Severity Reaction Status Date / Time amoxicillin Allergy Severe tightness Verified 05/30/19 11:37 in throat - Social History Does the pt smoke?: No Smoking Status: Never smoker Does the pt drink ETOH?: No Does the pt have substance abuse?: No - Immunizations Immunizations are current?: Yes - POLST Patient has POLST: No PD ED PE NORMAL - Vitals Vital signs reviewed: Yes (hypertensive) - General General: Alert and oriented X 3, Well developed/nourished - HEENT HEENT: Atraumatic, Pharynx benign - Neck Neck: Supple, no meningeal sign, No adenopathy - Cardiac Cardiac: RRR - Respiratory Respiratory: No respiratory distress, Clear bilaterally - Abdomen Abdomen: Normal bowel sounds, Soft, Other (Tenderness left mid abdomen, without rebound or guarding.) - Back Back: Other (Left flank tenderness to percussion.) - Derm Derm: No rash - Extremities Extremities: No edema, No calf tenderness / cord - Neuro Neuro: Alert and oriented X 3, No motor deficit, Normal speech Results - Vitals Vitals: Vital Signs - 24 hr 05/30/19 05/30/19 11:35 14:01 Temperature 36.5 C 36.8 C Heart Rate 91 82 Respiratory 18 16 Rate Blood Pressure 152/108 H 134/91 H O2 Saturation 99 97 Oxygen O2 Source Room air - Labs Labs: Laboratory Tests 05/30/19 05/30/19 05/30/19 11:39 12:10 12:10 WBC 10.8 RBC 4.83 Hgb 13.5 Hct 40.7 MCV 84.3 MCH 28.0 MCHC 33.2 RDW 14.1 Plt Count 294 MPV 9.8 Neut # (Auto) 9.1 H Lymph # (Auto) 1.2 L [place] # (Auto) 0.5 Eos # (Auto) 0.1 Baso # (Auto) 0.0 Absolute Nucleated RBC 0.00 Nucleated RBC % 0.0 Sodium 139 Potassium 3.2 L Chloride 103 Carbon Dioxide 25 Anion Gap 11.0 BUN 9 Creatinine 0.6 Estimated GFR (MDRD) 118 Glucose 120 H Calcium 9.4 Total Bilirubin 0.7 AST 18 ALT 18 Alkaline Phosphatase 117 Total Protein 8.2 Albumin 4.6 Globulin 3.6 Albumin/Globulin Ratio 1.3 Lipase 24 Urine Color YELLOW Urine Clarity HAZY Urine pH 6.0 Ur Specific [place] >=1.030 H Urine Protein TRACE Urine Glucose (UA) NEGATIVE Urine Ketones NEGATIVE Urine Occult Blood LARGE H Urine Nitrite NEGATIVE Urine Bilirubin NEGATIVE Urine Urobilinogen 0.2 (NORMAL) Ur Leukocyte Esterase TRACE H Urine RBC TNTC H Urine WBC 0-3 Ur Squamous Epith Cells FEW Squamous Urine Bacteria Few Ur Microscopic Review INDICATED Urine Culture Comments INDICATED Urine HCG, Qual NEGATIVE - Rads (name of study) CT abd/pelvis w/o Radiology: Prelim report reviewed, EMP read contemporaneously, See rad report (A 5 mm obstructive calculus in the left UPJ with hydronephrosis. Bilateral nonobstructive renal calculi. Normal appendix. No other significant abnormality.) PD MEDICAL DECISION MAKING - ED course Complexity details: reviewed old records, reviewed results, re-evaluated patient, considered differential, d/w patient, d/w family ED course: The patient's presentation is significant for left renal colic, with a 5 mm stone at the left UPJ with hydronephrosis seen on CT scan of the abdomen pelvis. Her presentation does not suggest pyelonephritis, and her white blood cell count is normal. Treatment in the emergency department included administration of normal saline 1 L IV, ibuprofen 800 mg orally, Zofran 4 mg IV, and fentanyl 75 mcg followed by 100 mcg IV. Her symptoms improved significantly with the above treatment. A DVD copy of her CT scan was made for her to take with her to follow-up appointment. She is being discharged with prescriptions for Flomax, Phenergan, and for Percocet, 14 tablets. I discussed with her and her the diagnosis, symptomatic treatment and outpatient follow-up, as well as potentially worrisome signs or symptoms that should prompt reevaluation in the emergency department. Departure - Departure Disposition: 01 Home, Self Care Clinical Impression: Renal colic on left side, Left ureteral stone Condition: Stable Instructions: ED Stone Renal W Colic Follow-Up: Ericka Paz MD [Provider Admit Priv/Credential] - Prescriptions: Oxycodone HCl/Acetaminophen [Percocet 5-325 mg Tablet] 1 - 2 each PO Q6H PRN #14 tablet PRN Reason: pain Promethazine [Phenergan] 25 mg PO Q6H PRN #10 tab PRN Reason: Nausea / Vomiting Tamsulosin [Flomax] 0.4 mg PO DAILY #7 capsule Comments: Drink plenty of fluids. Take Flomax daily as prescribed. You can use ibuprofen, up to 800 mg 3 times daily. You can use Percocet as prescribed if needed for pain. Follow-up with Urologist as soon as possible. Call to schedule appointment. Return to the emergency department if you develop increasing pain, persistent vomiting, fever, or otherwise worsening symptoms. Forms: Activity restrictions Discharge Date/Time: 05/30/19 14:09
[2019-05-30] MEDS ORDERED: fentaNYL 100 MCG/2 ML VIAL ONE (13:46)
--- NOTE | 2019-05-30 13:48 | CT Report ---
Reason: Left flank pain; hematuria Procedure Date: 05/30/2019 Accession Number: [id number] / [id number] Procedure: CT - Abdomen/Pelvis WO CPT Code: FULL RESULT: EXAM: CT ABDOMEN AND PELVIS (CT KUB) EXAM DATE: 05/30/2019 01:11 PM. CLINICAL HISTORY: Left flank pain; hematuria. COMPARISONS: None. TECHNIQUE: Routine axial helical CT imaging was performed through the abdomen and pelvis without IV contrast. Reconstructions: Coronal and sagittal. In accordance with CT protocol optimization, one or more of the following dose reduction techniques were utilized for this exam: automated exposure control, adjustment of mA and/or KV based on patient size, or use of iterative reconstructive technique. FINDINGS: Lung Bases: A 3 mm nodule along the left minor fissure is most consistent with intrapulmonary lymph node (image 10 on series 3). Right Kidney/Ureter: A 4 mm nonobstructive calculus in right midpole.No hydronephrosis, or hydroureter. No perinephric fat stranding. Left Kidney/Ureter: A 5 mm obstructive calculus in left UPJ with mild hydronephrosis. Punctate nonobstructive calculi in superior pole of left kidney. Other Solid Organs: Noncontrast images of the solid organs are grossly unremarkable. Gallbladder/Bile Ducts: Unremarkable. Peritoneal Cavity: No free fluid, free air or homero adenopathy. Bowel is grossly unremarkable. Normal appendix and right lower quadrant. Pelvic Organs: No bladder stones or wall thickening. Noncontrast images of the visualized pelvic organs are unremarkable. Vasculature: Unremarkable. Other: None. IMPRESSION: A 5 mm obstructive calculus in left UPJ with hydronephrosis. Bilateral nonobstructive renal calculi. Normal appendix. No other significant abnormality. RADIA
[2019-05-30 14:03] VITALS: BP 134/91
== END 2019-05-30 14:09 | disposition home or self-care (01) ==
LOC: ED 11:29
DX: N13.2 Hydronephrosis with renal and ureteral calculous obstruction (principal); I10 Essential (primary) hypertension
CPT/HCPCS: 36415; 74176; 80053; 81001; 81025; 83690; 85025; 87086; 96361; 96374; 99284; A9270; 81003

== ENCOUNTER 2019-06-12 15:15 | Emergency (ER) | payer MEDICAID ==
[2019-06-12] MEDS ORDERED: HYDROmorphone 1 MG/ML CARPUJECT IVP STA (15:45)
[2019-06-12] MEDS ORDERED: SODIUM CHLORIDE 0.9% 1,000 ML IV ONE (15:45)
[2019-06-12] MEDS ORDERED: KETOROLAC 30 MG/ML VIAL IVP STA (15:45)
[2019-06-12] MEDS ORDERED: ONDANSETRON 4 MG/2 ML VIAL IVP STA (15:45)
--- NOTE | 2019-06-12 15:46 | ED Physician Documentation ---
PD HPI ABD PAIN - Stated complaint Stated Complaint: FEMALE PX - Chief complaint Chief Complaint: Abd Pain - History obtained from History obtained from: Patient - History of Present Illness Timing - onset: Other (Recent diagnosis of a left 5 mm UPJ stone about 2 weeks ago with persistent pain now moving more of a band across the epigastrium and right side 2 with occasional hematuria. Has not been able to see the urologist yet because she needs a referral from her PCP for same.) Review of Systems Constitutional: denies: Fever, Chills Respiratory: denies: Dyspnea, Cough GI: reports: Abdominal Pain, Nausea. denies: Vomiting, Constipation, Diarrhea : reports: Dysuria, Hematuria. denies: Frequency PD PAST MEDICAL HISTORY - Past Medical History Cardiovascular: Hypertension Respiratory: None, Other Neuro: None, Other Endocrine/Autoimmune: None, Other GI: None CONTENT COORDINATOR: None : Kidney stones, Other HEENT: None Psych: None, Anxiety Musculoskeletal: None Derm: None - Past Surgical History Past Surgical History: Yes /CONTENT COORDINATOR: Hysterectomy - Present Medications Home Medications: Ambulatory Orders Medication Instructions Recorded Confirmed Nifedipine [Afeditab Cr] 30 mg PO DAILY 02/15/19 02/17/19 Hydrocodone/Acetaminophen 1 - 2 each PO Q6H PRN #14 tablet 06/12/19 [Hydrocodon-Acetaminophen 5-325] - Allergies Allergies/Adverse Reactions: Allergies Allergy/AdvReac Type Severity Reaction Status Date / Time amoxicillin Allergy Severe tightness Verified 06/12/19 15:34 in throat - Social History Does the pt smoke?: No Smoking Status: Never smoker Does the pt drink ETOH?: No Does the pt have substance abuse?: No - Immunizations Immunizations are current?: Yes - POLST Patient has POLST: No PD ED PE NORMAL - Vitals Vital signs reviewed: Yes - General General: Alert and oriented X 3, No acute distress - Cardiac Cardiac: RRR, No murmur - Respiratory Respiratory: No respiratory distress, Clear bilaterally - Abdomen Abdomen: Normal bowel sounds, Soft, Non tender - Back Back: Other (Mild bilateral flank tenderness) - Derm Derm: Normal color, Warm and dry - Neuro Neuro: Alert and oriented X 3, Normal speech Results - Vitals Vitals: Vital Signs - 24 hr 06/12/19 06/12/19 06/12/19 15:33 16:36 17:07 Temperature 36.5 C Heart Rate 77 72 82 Respiratory 18 20 20 Rate Blood Pressure 154/95 H 147/98 H 149/82 H O2 Saturation 100 100 99 Oxygen O2 Source Room air - Labs Labs: Laboratory Tests 06/12/19 06/12/19 06/12/19 15:45 15:50 15:50 WBC 6.4 RBC 4.26 Hgb 11.5 L Hct 36.3 L MCV 85.2 MCH 27.0 MCHC 31.7 L RDW 14.2 Plt Count 289 MPV 10.2 Neut # (Auto) 4.0 Lymph # (Auto) 1.8 [place] # (Auto) 0.5 Eos # (Auto) 0.1 Baso # (Auto) 0.0 Absolute Nucleated RBC 0.00 Nucleated RBC % 0.0 Sodium 139 Potassium 3.6 Chloride 104 Carbon Dioxide 26 Anion Gap 9.0 BUN 12 Creatinine 0.6 Estimated GFR (MDRD) 118 Glucose 94 Calcium 9.3 Total Bilirubin 0.2 AST 17 ALT 25 Alkaline Phosphatase 107 Total Protein 7.3 Albumin 4.1 Globulin 3.2 Albumin/Globulin Ratio 1.3 Lipase 29 Urine Color YELLOW Urine Clarity CLEAR Urine pH 6.0 Ur Specific [place] 1.025 Urine Protein NEGATIVE Urine Glucose (UA) NEGATIVE Urine Ketones NEGATIVE Urine Occult Blood NEGATIVE Urine Nitrite NEGATIVE Urine Bilirubin NEGATIVE Urine Urobilinogen 0.2 (NORMAL) Ur Leukocyte Esterase NEGATIVE Ur Microscopic Review NOT INDICATED Urine Culture Comments NOT INDICATED PD MEDICAL DECISION MAKING - ED course ED course: 28-year-old woman with known ureteral stone presents with pain due to same. She did not want to do any narcotics here because she was breast-feeding but had reasonable relief after Toradol and IV lidocaine. Departure - Departure Disposition: Home, Self Care Clinical Impression: Left ureteral stone Condition: Good Record reviewed to determine appropriate education?: Yes Instructions: ED Stone Renal W Colic Prescriptions: Hydrocodone/Acetaminophen [Hydrocodon-Acetaminophen 5-325] 1 - 2 each PO Q6H PRN #14 tablet PRN Reason: pain Comments: Follow-up with your doctor on as scheduled, consider referral to urology. Return for new or worsening symptoms. Forms: Activity restrictions
[2019-06-12 15:58] LABS: BASOPHILS % (AUTO) 0.5 %; EOSINOPHILS # (AUTO) 0.1 10^3/uL (0.0-0.7); EOSINOPHILS % (AUTO) 1.9 %; HGB - HEMOGLOBIN 11.5 g/dL (12.0-16.0); LYMPHOCYTES # (AUTO) 1.8 10^3/uL (1.5-3.5); LYMPHOCYTES % (AUTO) 27.8 %; MEAN CORPUSCULAR HGB CONC 31.7 g/dL (32.0-36.0); MEAN CORPUSCULAR VOLUME 85.2 fL (81.0-99.0); MEAN PLATELET VOLUME 10.2 fL (7.9-10.8); MONOCYTES # (AUTO) 0.5 10^3/uL (0.0-1.0); MONOCYTES % (AUTO) 8.2 %; NEUTROPHILS % (AUTO) 61.3 %; PLT - PLATELET COUNT 289 10^3/uL (130-450); RED BLOOD COUNT 4.26 10^6/uL (4.20-5.40); RED CELL DISTRIBUTION WIDTH 14.2 % (12.0-15.0); WHITE BLOOD COUNT 6.4 x10^3/uL (4.8-10.8)
[2019-06-12 16:10] LABS: ALBUMIN 4.1 g/dL (3.2-5.5); ALBUMIN/GLOBULIN RATIO 1.3 (1.0-2.2); BILIRUBIN,TOTAL 0.2 mg/dL (0.2-1.0); CALCIUM 9.3 mg/dL (8.5-10.3); CREATININE 0.6 mg/dL (0.4-1.0); TOTAL PROTEIN 7.3 g/dL (6.7-8.2)
[2019-06-12 16:23] LABS: BILIRUBIN,URINE NEGATIVE (NEGATIVE); GLUCOSE, URINE (UA) NEGATIVE (NEGATIVE); KETONES,URINE (UA) NEGATIVE (NEGATIVE); LEUKOCYTE ESTERASE, URINE NEGATIVE (NEGATIVE); NITRITE,URINE NEGATIVE (NEGATIVE); OCCULT BLOOD,URINE NEGATIVE (NEGATIVE); PROTEIN,URINE NEGATIVE (NEGATIVE); UROBILINOGEN,URINE 0.2 (NORMAL) E.U./dL (NORMAL)
[2019-06-12 16:28] LABS: CLARITY,URINE CLEAR (CLEAR)
[2019-06-12] MEDS ORDERED: LIDOCAINE MPF 2% IV STA (16:49)
[2019-06-12] MEDS ORDERED: SODIUM CHLORIDE 0.9% IV STA (16:49)
[2019-06-12] MEDS ORDERED: LIDOCAINE-MPF 2% 5 ML VIAL ONE (17:12)
[2019-06-12 18:03] VITALS: BP 131/75
== END 2019-06-12 18:25 | disposition home or self-care (01) ==
LOC: ED 15:15
DX: N20.1 Calculus of ureter (principal); I10 Essential (primary) hypertension; Z87.442 Personal history of urinary calculi
CPT/HCPCS: 36415; 80053; 81003; 83690; 85025; 96361; 96365; 96375; 99283; 99284; J7040; 81001; 87086

== ENCOUNTER 2019-12-15 15:53 | Emergency (ER) | payer MEDICAID ==
--- NOTE | 2019-12-15 17:30 | XRAY Report ---
Reason: cough Procedure Date: 12/15/2019 Accession Number: [id number] / [id number] Procedure: XR - Chest 2 View X-Ray CPT Code: 95808 Final Report FULL RESULT: EXAM: CHEST RADIOGRAPHY EXAM DATE: 12/15/2019 05:14 PM. CLINICAL HISTORY: Cough. COMPARISON: CHEST 1 VIEW 01/30/2018 7:56 PM. TECHNIQUE: 2 views. FINDINGS: Lungs/Pleura: No focal opacities evident. No pleural effusion. No pneumothorax. Normal volumes. Mediastinum: Top normal heart size. Other: Negative bony structures. IMPRESSION: Clear lungs. No acute findings. RADIA
[2019-12-15 18:49] VITALS: BP 149/98
--- NOTE | 2019-12-15 23:43 | ED Physician Documentation ---
History of Present Illness - Stated complaint Stated Complaint: CHEST CONGESTION - Chief complaint Chief Complaint: Resp - History obtained from History obtained from: Patient - Additonal information Additional information: Pt c/o R upper chest pain and scapular pain for the past several days. She has had a mild cough. No fevers. No sore throat or body aches. No nausea or vomiting. Patient has a history of hypertension which is moderately controlled. Patient has no shortness of breath. No cardiac issues that she knows of. Patient is otherwise fairly healthy.She denies trauma to the area. No other complaints at this time. She states it does not seem to make a difference in the pain if she moves her right upper extremity. She complains of mild increase of pain when she takes deep breath. Review of Systems Ten Systems: 10 systems reviewed and negative Constitutional: reports: Reviewed and negative Eyes: reports: Reviewed and negative Ears: reports: Reviewed and negative Nose: reports: Reviewed and negative Throat: reports: Reviewed and negative Cardiac: reports: Chest pain / pressure Respiratory: reports: Reviewed and negative GI: reports: Reviewed and negative : reports: Reviewed and negative Skin: reports: Reviewed and negative Musculoskeletal: reports: Reviewed and negative Neurologic: reports: Reviewed and negative Psychiatric: reports: Reviewed and negative Endocrine: reports: Reviewed and negative Immunocompromised: reports: Reviewed and negative PD PAST MEDICAL HISTORY - Past Medical History Past Medical History: Yes Cardiovascular: Hypertension Respiratory: None, Other Neuro: None, Other Endocrine/Autoimmune: None, Other GI: None 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 MINER 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 : Kidney stones, Other HEENT: None Psych: None, Anxiety Musculoskeletal: None Derm: None - Past Surgical History Past Surgical History: Yes /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: No - Immunizations Immunizations are current?: Yes - POLST Patient has POLST: No PD ED PE NORMAL - Vitals Vital signs reviewed: Yes - General General: Alert and oriented X 3, No acute distress, Well developed/nourished - HEENT HEENT: Atraumatic, PERRL, EOMI, Moist mucous membranes - Neck Neck: Supple, no meningeal sign - Cardiac Cardiac: RRR, No murmur - Respiratory Respiratory: No respiratory distress, Clear bilaterally - Abdomen Abdomen: Soft, Non tender, Non distended - Back Back: Other (No point tenderness around the patient's right scapula.) - Derm Derm: Normal color, Warm and dry, No rash - Extremities Extremities: No deformity, No tenderness to palpate, Normal ROM s pain, No edema, No calf tenderness / cord - Neuro Neuro: Alert and oriented X 3, rehabilitation services counselor 2-12 intact, No motor deficit, No sensory deficit, Normal speech - Psych Psych: Normal mood, Normal affect Results - Vitals Vitals: Oxygen O2 Source Room air - Labs Labs: Laboratory Tests 12/15/19 17:03 Influenza A (Rapid) Negative Influenza B (Rapid) Negative - Rads (name of study) Chest x-ray Radiology: Final report received, EMP read indepedently, See rad report PD MEDICAL DECISION MAKING - ED course Complexity details: reviewed results, re-evaluated patient, considered differential, d/w patient ED course: Patient was worked up with influenza testing and with chest x-ray, both of which were found to be negative. I felt the patient was stable for discharge home. She does have hypertension, for which she sees her primary care physician. Her blood pressure improved significantly throughout her stay in the emergency department. We have discussed home management of the symptoms, as well as usual indications for return. Patient has normal vital signs other than her blood pressure and has no history of risk factors for DVT. She also has no symptoms of DVT. As such, I feel that PE is unlikely. As well, I do not feel that cardiac source is likely. Departure - Departure Disposition: 01 Home, Self Care Clinical Impression: Pain of right scapula Chest pain Qualifiers: Chest pain type: intercostal pain Qualified Code(s): R07.82 - Intercostal pain Hypertension Qualifiers: Hypertension type: essential hypertension Qualified Code(s): I10 - Essential (primary) hypertension Condition: Good Instructions: ED Chest Pain NonCardiac, ED HTN Established Comments: Your chest x-ray looks good. Your influenza test is negative and your EKG is normal. Your blood pressure is running a little high today and it is very important that you talk to your doctor about how to get good control of the pressure so you do not have any long-term complications.The pain you are having is most likely musculoskeletal in origin, meaning that it is coming from the supporting structures of your chest, rather than the organs. There is no evidence of an emergent cause of the pain today. Discharge Date/Time: 12/15/19 19:30
== END 2019-12-15 19:30 | disposition home or self-care (01) ==
LOC: ED 15:53
DX: R07.82 Intercostal pain (principal); M25.511 Pain in right shoulder; I10 Essential (primary) hypertension
CPT/HCPCS: 71046; 87275; 87276; 93005; 99284

== ENCOUNTER 2020-02-16 14:08 | Outpatient (CLI) | payer MEDICAID ==
[2020-02-16 18:03] LABS: BASOPHILS % (AUTO) 0.6 %; EOSINOPHILS # (AUTO) 0.1 10^3/uL (0.0-0.7); EOSINOPHILS % (AUTO) 1.3 %; HGB - HEMOGLOBIN 13.2 g/dL (12.0-16.0); LYMPHOCYTES # (AUTO) 1.8 10^3/uL (1.5-3.5); LYMPHOCYTES % (AUTO) 26.3 %; MEAN CORPUSCULAR HEMOGLOBIN 30.4 pg (27.0-31.0); MEAN CORPUSCULAR HGB CONC 33.4 g/dL (32.0-36.0); MEAN PLATELET VOLUME 10.7 fL (7.9-10.8); MONOCYTES # (AUTO) 0.4 10^3/uL (0.0-1.0); MONOCYTES % (AUTO) 6.2 %; NEUTROPHILS # (AUTO) 4.4 10^3/uL (1.5-6.6); NEUTROPHILS % (AUTO) 65.5 %; PLT - PLATELET COUNT 296 10^3/uL (130-450); RED BLOOD COUNT 4.34 10^6/uL (4.20-5.40); RED CELL DISTRIBUTION WIDTH 11.9 % (12.0-15.0); WHITE BLOOD COUNT 6.7 x10^3/uL (4.8-10.8)
[2020-02-16 18:17] LABS: CALCIUM 9.6 mg/dL (8.5-10.3); CREATININE 0.6 mg/dL (0.4-1.0)
== END 2020-02-16 23:59 | disposition home or self-care (01) ==
LOC: LAB.WCP 14:08
PROVIDERS: ATTEND Physician Assistant Medical
DX: I10 Essential (primary) hypertension (principal)
CPT/HCPCS: 36415; 80048; 85025

== ENCOUNTER 2020-10-16 08:00 | Outpatient (CLI) | payer MEDICAID | END 2020-10-16 23:59 | LOC: LAB.WCP 08:00 | PROVIDERS: ATTEND Family Medicine | DX: I10 Essential (primary) hypertension (principal) | CPT/HCPCS: 81599; 82530 ==

== ENCOUNTER 2020-10-18 09:30 | Outpatient (CLI) | payer MEDICAID | END 2020-10-18 23:59 | disposition home or self-care (01) | LOC: LAB.WCP 09:30 | PROVIDERS: ATTEND Family Medicine | DX: I10 Essential (primary) hypertension (principal) | CPT/HCPCS: 83835 ==

== ENCOUNTER 2020-11-02 07:00 | Outpatient (CLI) | payer MEDICAID ==
[2020-11-02] MEDS ORDERED: GADOBUTROL 7.5 MMOL/7.5 ML VIAL ONE (09:26)
[2020-11-02] MEDS ORDERED: GADOBUTROL 7.5 MMOL/7.5 ML VIAL IVP ONE (10:25)
--- NOTE | 2020-11-02 16:20 | MRI Report ---
PROCEDURE: Brain W/WO INDICATIONS: HEADACHE, FAM HX OF BRAIN ANEURYSM, HTN CONTRAST: IV CONTRAST: Gadavist ml: 5 TECHNIQUE: Noncontrast axial T1 spin echo, axial T2 fast spin echo, sagittal and axial FLAIR, coronal T2 fast sp in echo, axial gradient echo, axial diffusion and ADC through the brain. After the administration of contrast, axial and coronal T1 spin echo with fat saturation through the brain. It is noted several sequences do not include the entire vertex. COMPARISON: MR angioma 11/02/2020 FINDINGS: Image quality: Excellent. CSF spaces: Basal cisterns are patent. No extra-axial fluid collections. Ventricles are normal in size and shape. Brain: No midline shift. No intracranial bleeds or masses. No abnormal intracranial enhancement. There is cerebral volume loss for age. There is periventricular white matter chronic small vessel is chemic change. The brainstem appears normal. Diffusion-weighted images demonstrate no acute ischemi c insults. No chronic ischemic insults. Normal intravascular flow voids are present. Skull and face: Calvarial marrow is normal in signal. Orbits appear normal. Sinuses: Sinuses and mastoids appear clear. IMPRESSION: 1. No acute intracranial process. As noted above, several sequences do not include full visualizatio n of the vertex. Reviewed by: Mitali Frank MD on 11/02/2020 4:19 PM PST Approved by: Mitali Frank MD on 11/02/2020 4:19 PM PST Station ID: [id number]
--- NOTE | 2020-11-02 16:32 | MRI Report ---
PROCEDURE: Angio Brain W/O (MRA) INDICATIONS: HEADACHE, FAM HX OF BRAIN ANEURYSM, HTN TECHNIQUE: Noncontrast axial 3-D [id number] MR angiogram, with 3-dimensional maximum intensity projection (M IP) reformats of the internal carotid arteries and posterior circulation then performed. COMPARISON: MRI brain 11/02/2020 FINDINGS: Image quality: Excellent. Anterior circulation: Intracranial internal carotid arteries demonstrate normal size and intralumina l flow signal. The flow within the paired anterior cerebral arteries is normal and symmetric. The f low within the middle cerebral arteries is normal and symmetric. The anterior communicating artery i s seen. No stenoses, occlusions, or aneurysms. Posterior circulation: Visualized portions of the vertebral arteries demonstrate normal caliber, and join to form a normal appearing basilar artery. The flow within the posterior cerebral arteries is normal and symmetric. No stenoses, occlusions, or aneurysms. IMPRESSION: 1. No areas of hemodynamically significant stenosis, vascular occlusion or aneurysmal dilation within the anterior or posterior circulation. Reviewed by: Mitali Frank MD on 11/02/2020 4:31 PM PST Approved by: Mitali Frank MD on 11/02/2020 4:31 PM PST Station ID: [id number]
--- NOTE | 2020-11-02 17:37 | Ultrasound Report ---
PROCEDURE: Arterial Visceral Complete INDICATIONS: HEADACHE, FAM HX OF BRAIN ANEURYSM, HTN TECHNIQUE: Real time scanning was performed of both kidneys, followed by Color and pulsed Doppler in terrogation of the renal vessels. COMPARISON: None FINDINGS: Aortic peak systolic velocity: 146 cm/s. Right side: Issa-scale imaging: Kidney is 11.7 cm long. No hydronephrosis. No nephrolithiasis. Renal cortex i s normal in echogenicity. No suspicious solid renal masses. Proximal renal artery peak systolic velocity: 154 cm/s. Mid renal artery peak systolic velocity: 152 cm/s. Distal renal artery peak systolic velocity: 130 cm/s. Renal vein: Patent, without thrombus. Peak renal/aortic ratio (RAR): 1.05. Left side: Issa-scale imaging: Kidney is 11.0 cm long. No hydronephrosis. No nephrolithiasis. Renal cortex i s normal in echogenicity. No suspicious solid renal masses. Proximal renal artery peak systolic velocity: 127 cm/s. Mid-renal artery peak systolic velocity: 124 cm/s. Distal renal artery peak systolic velocity: 93 cm/s. Renal vein: Patent, without thrombus. Peak renal/aortic ratio (RAR): 0.87. IMPRESSION: 1. Normal-sized kidneys with no evidence of hydronephrosis. 2. No evidence of renal artery stenosis. Reviewed by: Gilson Renner MD on 11/02/2020 5:36 PM PST Approved by: Gilson Renner MD on 11/02/2020 5:36 PM PST Station ID: [id number]
== END 2020-11-02 07:01 | disposition home or self-care (01) ==
LOC: DI 07:00
PROVIDERS: ATTEND Family Medicine
DX: G44.89 Other headache syndrome (principal); Z82.0 Family history of epilepsy and other diseases of the nervous system; I10 Essential (primary) hypertension
CPT/HCPCS: 70544; 70553; 93975; A9585

== ENCOUNTER 2021-09-24 08:00 | Outpatient (CLI) | payer MEDICAID ==
[2021-09-24 18:04] LABS: CALCIUM 9.5 mg/dL (8.5-10.3); CREATININE 1.4 mg/dL (0.4-1.0); POTASSIUM 3.4 mmol/L (3.5-5.0)
== END 2021-09-24 23:59 | disposition home or self-care (01) ==
LOC: LAB.WCP 08:00
PROVIDERS: ATTEND Family Medicine
DX: I10 Essential (primary) hypertension (principal)
CPT/HCPCS: 36415; 80048

== ENCOUNTER 2021-11-22 08:20 | Outpatient (CLI) | payer MEDICAID ==
[2021-11-22 12:18] LABS: BASOPHILS # (AUTO) 0.1 10^3/uL (0.0-0.1); BASOPHILS % (AUTO) 0.6 %; EOSINOPHILS # (AUTO) 0.1 10^3/uL (0.0-0.7); HCT - HEMATOCRIT 31.6 % (37.0-47.0); HGB - HEMOGLOBIN 10.6 g/dL (12.0-16.0); LYMPHOCYTES # (AUTO) 1.6 10^3/uL (1.5-3.5); LYMPHOCYTES % (AUTO) 20.2 %; MEAN CORPUSCULAR HEMOGLOBIN 30.6 pg (27.0-31.0); MEAN CORPUSCULAR HGB CONC 33.5 g/dL (32.0-36.0); MEAN CORPUSCULAR VOLUME 91.3 fL (81.0-99.0); MEAN PLATELET VOLUME 10.1 fL (7.9-10.8); MONOCYTES # (AUTO) 0.6 10^3/uL (0.0-1.0); MONOCYTES % (AUTO) 6.9 %; NEUTROPHILS # (AUTO) 5.8 10^3/uL (1.5-6.6); NEUTROPHILS % (AUTO) 71.1 %; PLT - PLATELET COUNT 312 10^3/uL (130-450); RED BLOOD COUNT 3.46 10^6/uL (4.20-5.40); RED CELL DISTRIBUTION WIDTH 13.1 % (12.0-15.0); WHITE BLOOD COUNT 8.1 x10^3/uL (4.8-10.8)
[2021-11-22 13:34] LABS: ALBUMIN 4.2 g/dL (3.2-5.5); ALBUMIN/GLOBULIN RATIO 1.3 (1.0-2.2); BILIRUBIN,TOTAL 0.5 mg/dL (0.2-1.0); CALCIUM 9.1 mg/dL (8.5-10.3); POTASSIUM 3.9 mmol/L (3.5-5.0); TOTAL PROTEIN 7.5 g/dL (6.7-8.2)
[2021-11-22 13:45] LABS: THYROID STIMULATING HORMONE 2.85 uIU/mL (0.34-5.60)
[2021-11-22 13:47] LABS: FREE T3 3.44 pg/mL (2.5-3.9); FREE T4 (FREE THYROXINE) 0.95 ng/dL (0.58-1.64)
== END 2021-11-22 08:21 | disposition home or self-care (01) ==
LOC: LAB.N 08:20
PROVIDERS: ATTEND Family Medicine
DX: I10 Essential (primary) hypertension (principal); G44.89 Other headache syndrome
CPT/HCPCS: 36415; 80050; 84439; 84481

== ENCOUNTER 2021-11-29 11:17 | Outpatient (CLI) | payer MEDICAID ==
[2021-11-29 18:52] LABS: BASOPHILS # (AUTO) 0.1 10^3/uL (0.0-0.1); BASOPHILS % (AUTO) 0.5 %; EOSINOPHILS # (AUTO) 0.1 10^3/uL (0.0-0.7); EOSINOPHILS % (AUTO) 0.5 %; HCT - HEMATOCRIT 32.3 % (37.0-47.0); HGB - HEMOGLOBIN 10.6 g/dL (12.0-16.0); LYMPHOCYTES # (AUTO) 1.2 10^3/uL (1.5-3.5); LYMPHOCYTES % (AUTO) 12.4 %; MEAN CORPUSCULAR HEMOGLOBIN 30.6 pg (27.0-31.0); MEAN CORPUSCULAR HGB CONC 32.8 g/dL (32.0-36.0); MEAN CORPUSCULAR VOLUME 93.4 fL (81.0-99.0); MONOCYTES # (AUTO) 0.4 10^3/uL (0.0-1.0); NEUTROPHILS % (AUTO) 81.9 %; PLT - PLATELET COUNT 348 10^3/uL (130-450); RED BLOOD COUNT 3.46 10^6/uL (4.20-5.40); RED CELL DISTRIBUTION WIDTH 13.2 % (12.0-15.0); RETICULOCYTE COUNT % (AUTO) 2.03 % (0.5-2.3); WHITE BLOOD COUNT 9.8 x10^3/uL (4.8-10.8)
[2021-11-29 19:25] LABS: % IRON SATURATION 27 % (20-50); IRON 102 ug/dL (28-170); TOTAL IRON BINDING CAPACITY 384 ug/dL (250-450); TRANSFERRIN 274 mg/dL (192-382)
[2021-11-29 19:26] LABS: FERRITIN 131.5 ng/mL (11.0-306.8)
[2021-11-29 19:30] LABS: FOLATE 6.05 ng/mL (5.90 - >24.8)
== END 2021-11-29 11:18 | disposition home or self-care (01) ==
LOC: LAB.N 11:17
PROVIDERS: ATTEND Family Medicine
DX: D64.9 Anemia, unspecified (principal)
CPT/HCPCS: 36415; 82607; 82728; 82746; 82747; 83540; 84466; 85025; 85045

== ENCOUNTER 2022-03-15 07:18 | Outpatient (CLI) | payer MEDICAID ==
--- NOTE | 2022-03-15 09:18 | XRAY Report ---
PROCEDURE: Chest 2 View X-Ray INDICATIONS: CHEST DISCOMFORT, ATYPICAL TECHNIQUE: 2 view(s) of the chest. COMPARISON: 12/15/2019. FINDINGS: Surgical changes and devices: None. Lungs and pleura: No pleural effusions or pneumothorax. Lungs are clear. Mediastinum: Mediastinal contours are normal. Heart size is normal. Bones and chest wall: No suspicious bony abnormalities. Soft tissues appear unremarkable. IMPRESSION: Chest without acute cardiopulmonary abnormalities or focal airspace disease. Reviewed by: Ryne Vela MD on 03/15/2022 9:17 AM PDT Approved by: Ryne Vela MD on 03/15/2022 9:17 AM PDT Station ID: [id number]
== END 2022-03-15 07:19 | disposition home or self-care (01) ==
LOC: DI.N 07:18
PROVIDERS: ATTEND Internal Medicine
DX: R07.89 Other chest pain (principal)

== ENCOUNTER 2022-03-15 07:28 | Outpatient (CLI) | payer MEDICAID ==
[2022-03-15 12:26] LABS: BASOPHILS % (AUTO) 0.5 %; EOSINOPHILS # (AUTO) 0.1 10^3/uL (0.0-0.7); EOSINOPHILS % (AUTO) 2.3 %; HCT - HEMATOCRIT 37.9 % (37.0-47.0); HGB - HEMOGLOBIN 12.4 g/dL (12.0-16.0); LYMPHOCYTES # (AUTO) 1.6 10^3/uL (1.5-3.5); LYMPHOCYTES % (AUTO) 27.9 %; MEAN CORPUSCULAR HEMOGLOBIN 29.6 pg (27.0-31.0); MEAN CORPUSCULAR HGB CONC 32.7 g/dL (32.0-36.0); MEAN CORPUSCULAR VOLUME 90.5 fL (81.0-99.0); MEAN PLATELET VOLUME 10.2 fL (7.9-10.8); MONOCYTES # (AUTO) 0.4 10^3/uL (0.0-1.0); MONOCYTES % (AUTO) 7.1 %; NEUTROPHILS # (AUTO) 3.5 10^3/uL (1.5-6.6); PLT - PLATELET COUNT 302 10^3/uL (130-450); RED BLOOD COUNT 4.19 10^6/uL (4.20-5.40); RED CELL DISTRIBUTION WIDTH 11.3 % (12.0-15.0); WHITE BLOOD COUNT 5.7 x10^3/uL (4.8-10.8)
[2022-03-15 12:47] LABS: ALBUMIN 4.3 g/dL (3.2-5.5); ALBUMIN/GLOBULIN RATIO 1.4 (1.0-2.2); BILIRUBIN,TOTAL 0.6 mg/dL (0.2-1.0); CALCIUM 9.2 mg/dL (8.5-10.3); CREATININE 0.7 mg/dL (0.4-1.0); POTASSIUM 3.6 mmol/L (3.5-5.0); TOTAL PROTEIN 7.4 g/dL (6.7-8.2)
[2022-03-15 12:57] LABS: THYROID STIMULATING HORMONE 1.47 uIU/mL (0.34-5.60)
== END 2022-03-15 07:29 | disposition home or self-care (01) ==
LOC: LAB.N 07:28
PROVIDERS: ATTEND Internal Medicine
DX: I10 Essential (primary) hypertension (principal); F41.8 Other specified anxiety disorders; D64.9 Anemia, unspecified; R07.89 Other chest pain
CPT/HCPCS: 36415; 80050; 85379

== ENCOUNTER 2022-04-29 17:19 | Emergency (ER) | payer MEDICAID ==
[2022-04-29 18:03] LABS: BASOPHILS % (AUTO) 0.2 %; EOSINOPHILS # (AUTO) 0.2 10^3/uL (0.0-0.7); EOSINOPHILS % (AUTO) 1.7 %; HCT - HEMATOCRIT 33.5 % (37.0-47.0); HGB - HEMOGLOBIN 11.5 g/dL (12.0-16.0); LYMPHOCYTES # (AUTO) 2.1 10^3/uL (1.5-3.5); LYMPHOCYTES % (AUTO) 24.4 %; MEAN CORPUSCULAR HEMOGLOBIN 30.1 pg (27.0-31.0); MEAN CORPUSCULAR HGB CONC 34.3 g/dL (32.0-36.0); MEAN CORPUSCULAR VOLUME 87.7 fL (81.0-99.0); MEAN PLATELET VOLUME 9.5 fL (7.9-10.8); MONOCYTES # (AUTO) 0.6 10^3/uL (0.0-1.0); MONOCYTES % (AUTO) 7.3 %; NEUTROPHILS # (AUTO) 5.7 10^3/uL (1.5-6.6); NEUTROPHILS % (AUTO) 66.2 %; PLT - PLATELET COUNT 273 10^3/uL (130-450); RED BLOOD COUNT 3.82 10^6/uL (4.20-5.40); RED CELL DISTRIBUTION WIDTH 12.1 % (12.0-15.0); WHITE BLOOD COUNT 8.6 x10^3/uL (4.8-10.8)
[2022-04-29 18:16] LABS: ALBUMIN 4.2 g/dL (3.2-5.5); ALBUMIN/GLOBULIN RATIO 1.4 (1.0-2.2); BILIRUBIN,TOTAL 0.7 mg/dL (0.2-1.0); CALCIUM 9.5 mg/dL (8.5-10.3); CREATININE 0.7 mg/dL (0.4-1.0); POTASSIUM 3.4 mmol/L (3.5-5.0); TOTAL PROTEIN 7.2 g/dL (6.7-8.2)
--- NOTE | 2022-04-29 18:20 | XRAY Report ---
PROCEDURE: Chest 1 View X-Ray INDICATIONS: Chest Pain TECHNIQUE: One view of the chest was acquired. COMPARISON: 03/15/2022, 12/15/2019 FINDINGS: Surgical changes and devices: None. Lungs and pleura: An incomplete inspiratory result is noted, with low lung volumes and crowding of t he vascular markings. No focal infiltrates are seen. No large pneumothorax or large pleural effusion can be seen. Mediastinum: Mediastinal contours appear normal. Heart size is normal. Bones and chest wall: No suspicious bony lesions. Overlying soft tissues appear unremarkable. IMPRESSION: Limited portable chest examination, without an acute abnormality identified. Reviewed by: Brenden Sagastume MD on 04/29/2022 5:18 PM AKLUIS Approved by: Brenden Sagastume MD on 04/29/2022 5:18 PM AKLUIS Station ID: [id number]
--- NOTE | 2022-04-29 18:32 | ED Physician Documentation ---
History of Present Illness - Stated complaint Stated Complaint: CHEST PX,L ARM NUMBNESS - Chief complaint Chief Complaint: Cardiac - History obtained from History obtained from: Patient - History of Present Illness Timing: Today Pain level max: 6 Pain level now: 5 - Additonal information Additional information: Patient is a 31-year-old female who presents to the emergency department complaining of constant chest pain since 9 AM this morning. Center of the chest, radiates to the left arm. Nothing makes it better. Worse with movement and deep breathing. Has not taken anything for the pain. No history of cardiac issues in the past. No history of young cardiac disease in the family. No recent travel. No leg swelling. No recent illnesses. 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 : Kidney stones, Other HEENT: None Psych: None, Anxiety Musculoskeletal: None Derm: None - Past Surgical History Past Surgical History: Yes /HAND I CUTTER: Hysterectomy - Present Medications Home Medications: Ambulatory Orders Medication Instructions Recorded Confirmed NIFEdipine [Afeditab Cr] 30 mg PO DAILY 02/15/19 02/17/19 Hydrocodone/Acetaminophen 1 - 2 each PO Q6H PRN #14 tablet 06/12/19 [Hydrocodon-Acetaminophen 5-325] - Allergies Allergies/Adverse Reactions: Allergies Allergy/AdvReac Type Severity Reaction Status Date / Time amoxicillin Allergy Severe tightness Verified 04/29/22 17:46 in throat erythromycin base Allergy Emesis Verified 04/29/22 17:46 - Social History Does the pt smoke?: No Smoking Status: Never smoker Does the pt drink ETOH?: No Does the pt have substance abuse?: No - Immunizations Immunizations are current?: Yes - POLST Patient has POLST: No PD ED PE NORMAL - Vitals Vital signs reviewed: Yes - General General: Alert and oriented X 3, No acute distress - HEENT HEENT: Moist mucous membranes - Neck Neck: Supple, no meningeal sign - Cardiac Cardiac: RRR, No murmur, Strong equal pulses - Respiratory Respiratory: No respiratory distress, Clear bilaterally - Abdomen Abdomen: Soft, Non tender, Non distended - Derm Derm: Warm and dry - Extremities Extremities: No edema, No calf tenderness / cord - Neuro Neuro: Alert and oriented X 3 - Psych Psych: Normal mood, Normal affect Results - Vitals Vitals: Vital Signs - 24 hr 04/29/22 04/29/22 04/29/22 17:39 18:03 18:43 Temperature 36.9 C Heart Rate 83 76 80 Respiratory 16 14 14 Rate Blood Pressure 124/81 H 119/72 O2 Saturation 100 100 100 Oxygen O2 Source Room air - EKG (time done) 1738 Rate: Rate (enter#) (80) Rhythm: NSR [place]: Normal Intervals: Normal SC QRS: Normal Ischemia: Normal ST segments - Labs Labs: Laboratory Tests 04/29/22 04/29/22 04/29/22 17:59 17:59 17:59 WBC 8.6 RBC 3.82 L Hgb 11.5 L Hct 33.5 L MCV 87.7 MCH 30.1 MCHC 34.3 RDW 12.1 Plt Count 273 MPV 9.5 Neut # (Auto) 5.7 Lymph # (Auto) 2.1 [place] # (Auto) 0.6 Eos # (Auto) 0.2 Baso # (Auto) 0.0 Absolute Nucleated RBC 0.00 Nucleated RBC % 0.0 Sodium 140 Potassium 3.4 L Chloride 104 Carbon Dioxide 27 Anion Gap 9.0 BUN 13 Creatinine 0.7 Estimated GFR (MDRD) 97 Glucose 91 Calcium 9.5 Total Bilirubin 0.7 AST 16 ALT 17 Alkaline Phosphatase 73 Troponin I High Sens < 2.3 L Total Protein 7.2 Albumin 4.2 Globulin 3.0 Albumin/Globulin Ratio 1.4 Lipase 34 - Rads (name of study) cxr Radiology: Final report received, EMP read contemporaneously, See rad report (Limited portable chest examination, without an acute abnormality identified. ) PD MEDICAL DECISION MAKING - ED course Complexity details: reviewed results, re-evaluated patient, considered differential (No ST elevation MS, no aortic dissection, no PE, no tension pneumothorax, no aortic aneurysm), d/w patient, d/w family ED course: 31-year-old female with chest pain today. Unclear etiology. No acute findings on EKG, chest x-ray or laboratory testing. Negative troponin. No evidence of PE. We will have her follow-up with her doctor for further care. Patient is asymptomatic in the ER and declines any further treatment. Patient counseled regarding signs and symptoms for which I believe and urgent re-evaluation would be necessary. Patient with good understanding of and agreement to plan and is comfortable going home at this time This document was made in part using voice recognition software. While efforts are made to proofread this document, sound alike and grammatical errors may occur. Departure - Departure Disposition: Home, Self Care Clinical Impression: Chest pain Qualifiers: Chest pain type: unspecified Qualified Code(s): R07.9 - Chest pain, unspecified Condition: Good Instructions: ED Chest Pain Atypical Unkn Cause Follow-Up: Raymond Manuel MD [Primary Care Provider] - Within 1 week Comments: Please follow-up with your doctor for further care. Your EKG, chest x-ray and laboratory testing did not show any acute abnormalities today. You can use Motrin or Tylenol as needed for pain. Return if you worsen. Discharge Date/Time: 04/29/22 18:53
[2022-04-29 18:44] VITALS: BP 119/72
== END 2022-04-29 18:53 | disposition home or self-care (01) ==
LOC: ED 17:19
DX: R07.9 Chest pain, unspecified (principal)
CPT/HCPCS: 36415; 80053; 83690; 84484; 85025; 93005; 99284

== ENCOUNTER 2022-06-08 20:27 | Outpatient (CLI) | payer MEDICAID | END 2022-06-08 20:28 | disposition critical access hospital (66) | LOC: EMS 20:27 | DX: R10.9 Unspecified abdominal pain (principal); R11.2 Nausea with vomiting, unspecified; R19.7 Diarrhea, unspecified | CPT/HCPCS: A0425; A0427; A0999 ==

== ENCOUNTER 2022-06-08 20:47 | Emergency (ER) | payer MEDICAID ==
[2022-06-08 21:06] LABS: BASOPHILS % (AUTO) 0.3 %; EOSINOPHILS # (AUTO) 0.1 10^3/uL (0.0-0.7); EOSINOPHILS % (AUTO) 0.7 %; HGB - HEMOGLOBIN 11.7 g/dL (12.0-16.0); LYMPHOCYTES # (AUTO) 1.2 10^3/uL (1.5-3.5); LYMPHOCYTES % (AUTO) 8.3 %; MEAN CORPUSCULAR HEMOGLOBIN 29.6 pg (27.0-31.0); MEAN CORPUSCULAR HGB CONC 33.4 g/dL (32.0-36.0); MEAN CORPUSCULAR VOLUME 88.6 fL (81.0-99.0); MEAN PLATELET VOLUME 10.1 fL (7.9-10.8); MONOCYTES # (AUTO) 0.6 10^3/uL (0.0-1.0); MONOCYTES % (AUTO) 4.6 %; NEUTROPHILS # (AUTO) 11.8 10^3/uL (1.5-6.6); NEUTROPHILS % (AUTO) 85.8 %; PLT - PLATELET COUNT 282 10^3/uL (130-450); RED BLOOD COUNT 3.95 10^6/uL (4.20-5.40); RED CELL DISTRIBUTION WIDTH 11.7 % (12.0-15.0); WHITE BLOOD COUNT 13.8 x10^3/uL (4.8-10.8)
--- NOTE | 2022-06-08 21:10 | ED Physician Documentation ---
PD HPI ABD PAIN - Stated complaint Stated Complaint: ABD PAIN - Chief complaint Chief Complaint: Abd Pain - History obtained from History obtained from: Patient - History of Present Illness Timing - onset: Yesterday Timing - details: Abrupt onset, Waxing and waning Pain level now: 8 Quality: Pain Location: RLQ Radiation: Right flank Improved by: Other (nothing) Worsened by: Other (no exacerbating factors) Associated symptoms: Nausea, Vomiting. No: Fever, Diarrhea, Constipation Similar symptoms before: Has not had sx before Recently seen: Not recently seen - Additional information Additional information: BIBA for RLQ and right flank pain, intermittent since yesterday , no exacerbating nor ameliorating factors, associated with nausea and vomiting. Denies h/o similar symptoms. Given fentanyl en route by EMS without improvement Review of Systems Constitutional: reports: Reviewed and negative Cardiac: reports: Reviewed and negative Respiratory: reports: Reviewed and negative GI: reports: Abdominal Pain, Nausea, Vomiting. denies: Abdominal Swelling, Constipation, Diarrhea : reports: Hysterectomy. 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 - Present Medications Home Medications: Ambulatory Orders Medication Instructions Recorded Confirmed NIFEdipine [Afeditab Cr] 30 mg PO DAILY 02/15/19 02/17/19 Hydrocodone/Acetaminophen 1 - 2 each PO Q6H PRN #14 tablet 06/12/19 [Hydrocodon-Acetaminophen 5-325] Ondansetron Odt [Zofran] 4 mg TL Q6H PRN #10 tablet 06/09/22 Oxycodone HCl/Acetaminophen 1 - 2 each PO Q6H PRN #14 tablet 06/09/22 [Percocet 5-325 mg Tablet] Tamsulosin [Flomax] 0.4 mg PO DAILY #10 cap 06/09/22 - Allergies Allergies/Adverse Reactions: Allergies Allergy/AdvReac Type Severity Reaction Status Date / Time amoxicillin Allergy Severe tightness Verified 04/29/22 17:46 in throat erythromycin base Allergy Emesis Verified 04/29/22 17:46 - Social History Does the pt smoke?: No Smoking Status: Never smoker Does the pt drink ETOH?: No Does the pt have substance abuse?: No - Immunizations Immunizations are current?: Yes - POLST Patient has POLST: No PD ED PE NORMAL - Vitals Vital signs reviewed: Yes - General General: Alert and oriented X 3, Well developed/nourished, Other (obvious painful distress) - HEENT HEENT: Moist mucous membranes - Cardiac Cardiac: RRR, No murmur - Respiratory Respiratory: No respiratory distress, Clear bilaterally - Abdomen Abdomen: Soft, Non tender - Back Back: No CVA TTP - Derm Derm: Normal color, Warm and dry Results - Vitals Vitals: Vital Signs - 24 hr 06/08/22 06/08/22 06/09/22 21:04 22:58 00:36 Temperature 37.2 C 36.9 C Heart Rate 86 60 95 Respiratory 18 18 18 Rate Blood Pressure 169/113 H 145/109 H 134/96 H O2 Saturation 96 95 99 Oxygen O2 Source Room air - Labs Labs: Laboratory Tests 06/08/22 06/08/22 20:59 20:59 WBC 13.8 H RBC 3.95 L Hgb 11.7 L Hct 35.0 L MCV 88.6 MCH 29.6 MCHC 33.4 RDW 11.7 L Plt Count 282 MPV 10.1 Neut # (Auto) 11.8 H Lymph # (Auto) 1.2 L [place] # (Auto) 0.6 Eos # (Auto) 0.1 Baso # (Auto) 0.0 Absolute Nucleated RBC 0.00 Nucleated RBC % 0.0 Sodium 139 Potassium 3.8 Chloride 104 Carbon Dioxide 27 Anion Gap 8.0 BUN 11 Creatinine 0.8 Estimated GFR (MDRD) 83 L Glucose 119 H Calcium 9.2 Total Bilirubin 0.8 AST 23 ALT 25 Alkaline Phosphatase 76 Total Protein 6.7 Albumin 4.2 Globulin 2.5 Albumin/Globulin Ratio 1.7 Lipase 27 - Rads (name of study) CT A/P Radiology: Prelim report reviewed, See rad report PD MEDICAL DECISION MAKING - ED course Complexity details: reviewed results, re-evaluated patient, considered differential, d/w patient ED course: presents symptoms c/w renal colic, CT demonstrated 4 x 6 right ureteral stone at edge of bladder. She had good relief with IV phenergan and dilaudid, given flomax. Results d/w patient , return precautions discussed, prescriptions for pain medication and flomax as well as anit-nauseant are provided. Departure - Departure Disposition: 01 Home, Self Care Clinical Impression: Renal colic Condition: Good Instructions: ED Stone Renal W Colic Prescriptions: Tamsulosin [Flomax] 0.4 mg PO DAILY #10 cap Oxycodone HCl/Acetaminophen [Percocet 5-325 mg Tablet] 1 - 2 each PO Q6H PRN #14 tablet PRN Reason: pain Ondansetron Odt [Zofran] 4 mg TL Q6H PRN #10 tablet PRN Reason: Nausea / Vomiting Comments: You have a 4 millimeter x 6 millimeter kidney stone at the very bottom / end of the right ureter (the conduit from the kidney to the bladder). Once the stone passes into the bladder, it will painlessly leave the bladder the next time you urinate. You can urinate through the strainer to look for the stone; visualization of the stone will indicate that you should not have any more significant pain, with possibly some mild residual aching for a few hours. If you continue to have symptoms by the beginning of next week (and/or if you have not passed the stone as indicated by straining your urine), you should con tact your urologist to arrange for appointment for reevaluation. Prescriptions for tamsulosin (flomax; which can increase the likelihood of, and time to, stone passage), percocet (opiate pain medication), and ondansetron (anti-nausea medication) have all been electronically submitted to [facility] in [place]. Discharge Date/Time: 06/09/22 00:36
[2022-06-08] MEDS ORDERED: HYDROmorphone 1 MG/ML CARPUJECT IVP STA ×2 (21:18→22:42)
[2022-06-08] MEDS ORDERED: PROMETHAZINE INJ 25 MG in SODIUM CHLORIDE 0.9% 50 ML IV STA (21:18)
[2022-06-08 21:22] LABS: ALBUMIN 4.2 g/dL (3.2-5.5); ALBUMIN/GLOBULIN RATIO 1.7 (1.0-2.2); BILIRUBIN,TOTAL 0.8 mg/dL (0.2-1.0); CALCIUM 9.2 mg/dL (8.5-10.3); CREATININE 0.8 mg/dL (0.4-1.0); POTASSIUM 3.8 mmol/L (3.5-5.0); TOTAL PROTEIN 6.7 g/dL (6.7-8.2)
[2022-06-08] MEDS ORDERED: PROMETHAZINE 25 MG/1 ML VIAL ONE (21:37)
[2022-06-08] MEDS ORDERED: KETOROLAC 30 MG/ML VIAL IVP STA (22:42)
--- NOTE | 2022-06-08 23:14 | CT Report ---
PROCEDURE: Abdomen/Pelvis WO INDICATIONS: right flank pain TECHNIQUE: Noncontrast 5 mm thick sections acquired from the diaphragms to the symphysis. 5 mm coronal and sagi ttal reformats were then performed. For radiation dose reduction, the following was used: automated exposure control, adjustment of mA and/or kV according to patient size. COMPARISON: None. FINDINGS: Image quality: Excellent. ABDOMEN: Lung bases: Lung bases are clear. Heart size is normal. Solid organs: Liver and spleen are normal in size. Gallbladder appears normal Pancreas is normal i n contours. No adrenal nodules. Kidneys are asymmetric in size, without left-sided hydronephrosis o r obstructive nephrolithiasis. There is a nonobstructive upper third 2 mm left renal collecting syste m calculus. There is quite severe right-sided hydronephrosis associated with a far distal ureteral st one measuring 4 x 6 mm at the bladder margin, with an internal radiodensity of 600 Hounsfield units. Hydronephrosis and hydroureter extend cephalad from this level at the right urinary tract. An additio nal calcific structure that measures approximately 6 x 5 mm is present at the right lower quadrant, p otentially ovarian or appendiceal in origin but without associated inflammatory change. Peritoneum and bowel: Unenhanced bowel loops demonstrate normal wall thickness and caliber. No free fluid or air. Nodes and vessels: No retroperitoneal or mesenteric adenopathy by size criteria. Aorta and inferior vena cava are normal in caliber. Miscellaneous: No ventral hernias. PELVIS: Genitourinary: Bladder wall thickness is normal. Miscellaneous: No inguinal hernias or adenopathy. Bones: No suspicious bony lesions. No vertebral body compression fractures. IMPRESSION: Prominent hydronephrosis and moderately severe hydroureter is seen on the right associated with an im pacted far distal right ureteral stone measuring up to 4 x 6 mm in dimension, with an internal radiod ensity of 600 Hounsfield units. Punctate calculus upper third collecting system left kidney is nonobstructive. Next A 5 mm calcification can be seen at the right lower quadrant of uncertain etiology as discussed above . It does not appear to represent a urinary tract stone. Reviewed by: José Manuel MD on 06/08/2022 11:13 PM PDT Approved by: José Manuel MD on 06/08/2022 11:13 PM PDT Station ID: [id number]
[2022-06-08] MEDS ORDERED: TAMSULOSIN 0.4 MG CAPSULE PO STA (23:59)
[2022-06-08] MEDS ORDERED: oxyCODONE/ACET 5/325 Prepack 4 PO STA (23:59)
[2022-06-09 00:37] VITALS: BP 134/96
== END 2022-06-09 00:36 | disposition home or self-care (01) ==
LOC: EDUNIT# → ED 20:47
DX: N13.2 Hydronephrosis with renal and ureteral calculous obstruction (principal)
CPT/HCPCS: 36415; 74176; 80053; 83690; 85025; 96365; 96375; 99284; A9270; J1170; J7040

== ENCOUNTER 2022-11-10 00:27 | Emergency (ER) | payer MEDICAID ==
[2022-11-10 00:34] VITALS: BP 150/99
--- NOTE | 2022-11-10 09:49 | ED Physician Documentation ---
ED Addendum - Addendum Addendum: 11/10/22 09:49 [facility]. SEE PAPER CHART
--- NOTE | 2022-11-10 09:53 | XRAY Report ---
PROCEDURE: Chest 2 View X-Ray INDICATIONS: DYSPNEA, CHEST PAIN TECHNIQUE: 2 views of the chest were acquired. COMPARISON: 04/29/2022 FINDINGS: Surgical changes and devices: None. Lungs and pleura: No pleural effusions or pneumothorax. Lungs are clear. Mediastinum: Mediastinal contours are normal. Heart size is normal. Bones and chest wall: No suspicious bony abnormalities. Soft tissues appear unremarkable. IMPRESSION: Normal two-view chest x-ray Note: Final report is concordant with preliminary interpretation provided by [facility] Reviewed by: Pepe Mas MD on 11/10/2022 8:51 AM [place] Approved by: Pepe Mas MD on 11/10/2022 8:51 AM [facility] Station ID: [id number]
[2022-11-12 08:44] LABS: CORONAVIRUS 229E-RESP PCR NOT DETECTED; CORONAVIRUS HKU1-RESP PCR NOT DETECTED; CORONAVIRUS NL63-RESP PCR DETECTED; CORONAVIRUS OC43-RESP PCR NOT DETECTED; HUMAN METAPNEUMOVIRUS NOT DETECTED; RHINOVIRUS/ENTEROVIRUS NOT DETECTED; SARS-CoV-2 -RESP PCR PANEL NOT DETECTED
[2022-11-12 08:45] LABS: B. PARAPERTUSSIS- RESP PCR PAN NOT DETECTED; B. PERTUSSIS- RESP PCR PANEL NOT DETECTED; C. PNEUMONIAE- RESP PCR PANEL NOT DETECTED; INFLUENZA A- RESP PCR PANEL NOT DETECTED; INFLUENZA B - RESP PCR PANEL NOT DETECTED; M. PNEUMONIAE- RESP PCR PANEL NOT DETECTED; PARAINFLUENZA VIRUS 1 NOT DETECTED; PARAINFLUENZA VIRUS 2 NOT DETECTED; PARAINFLUENZA VIRUS 3 NOT DETECTED; PARAINFLUENZA VIRUS 4 NOT DETECTED; RSV- RESP PCR PANEL NOT DETECTED
== END 2022-11-10 03:13 | disposition home or self-care (01) ==
LOC: ED 00:27
DX: U07.1 COVID-19 (principal); J20.8 Acute bronchitis due to other specified organisms; I10 Essential (primary) hypertension; Z79.899 Other long term (current) drug therapy
CPT/HCPCS: 87633; 99283

== ENCOUNTER 2022-11-13 22:09 | Emergency (ER) | payer MEDICAID ==
[2022-11-13 22:41] LABS: BASOPHILS % (AUTO) 0.3 %; EOSINOPHILS # (AUTO) 0.1 10^3/uL (0.0-0.7); EOSINOPHILS % (AUTO) 0.6 %; HCT - HEMATOCRIT 40.8 % (37.0-47.0); HGB - HEMOGLOBIN 13.6 g/dL (12.0-16.0); LYMPHOCYTES # (AUTO) 2.3 10^3/uL (1.5-3.5); MEAN CORPUSCULAR HEMOGLOBIN 29.8 pg (27.0-31.0); MEAN CORPUSCULAR HGB CONC 33.3 g/dL (32.0-36.0); MEAN CORPUSCULAR VOLUME 89.3 fL (81.0-99.0); MEAN PLATELET VOLUME 10.3 fL (7.9-10.8); MONOCYTES # (AUTO) 0.5 10^3/uL (0.0-1.0); MONOCYTES % (AUTO) 4.6 %; NEUTROPHILS # (AUTO) 7.5 10^3/uL (1.5-6.6); NEUTROPHILS % (AUTO) 72.2 %; PLT - PLATELET COUNT 291 10^3/uL (130-450); RED BLOOD COUNT 4.57 10^6/uL (4.20-5.40); RED CELL DISTRIBUTION WIDTH 11.9 % (12.0-15.0); WHITE BLOOD COUNT 10.4 x10^3/uL (4.8-10.8)
[2022-11-13 22:51] LABS: BILIRUBIN,URINE NEGATIVE (NEGATIVE); CLARITY,URINE HAZY (CLEAR); GLUCOSE, URINE (UA) NEGATIVE (NEGATIVE); KETONES,URINE (UA) TRACE mg/dL (NEGATIVE); LEUKOCYTE ESTERASE, URINE NEGATIVE (NEGATIVE); NITRITE,URINE NEGATIVE (NEGATIVE); OCCULT BLOOD,URINE NEGATIVE (NEGATIVE); PROTEIN,URINE NEGATIVE (NEGATIVE); UROBILINOGEN,URINE 0.2 (NORMAL) E.U./dL (NORMAL)
[2022-11-13 22:51] LABS: ALBUMIN 4.5 g/dL (3.2-5.5); ALBUMIN/GLOBULIN RATIO 1.4 (1.0-2.2); BILIRUBIN,TOTAL 0.7 mg/dL (0.2-1.0); CALCIUM 10.1 mg/dL (8.5-10.3); CREATININE 0.7 mg/dL (0.4-1.0); POTASSIUM 3.7 mmol/L (3.5-5.0); TOTAL PROTEIN 7.8 g/dL (6.7-8.2)
[2022-11-13 22:58] LABS: BACTERIA,URINE Few /HPF (None Seen); RBC,URINE 0-5 /HPF (0-5); SQUAMOUS EPITHELIAL CELL,UR MOD Squamous (<= Few)
[2022-11-13 22:59] LABS: MUCUS,URINE Moderate Strands
[2022-11-13 23:29] LABS: B. PARAPERTUSSIS- RESP PCR PAN NOT DETECTED; B. PERTUSSIS- RESP PCR PANEL NOT DETECTED; C. PNEUMONIAE- RESP PCR PANEL NOT DETECTED; CORONAVIRUS 229E-RESP PCR NOT DETECTED; CORONAVIRUS HKU1-RESP PCR NOT DETECTED; CORONAVIRUS NL63-RESP PCR DETECTED; CORONAVIRUS OC43-RESP PCR NOT DETECTED; HUMAN METAPNEUMOVIRUS NOT DETECTED; INFLUENZA A- RESP PCR PANEL NOT DETECTED; INFLUENZA B - RESP PCR PANEL NOT DETECTED; M. PNEUMONIAE- RESP PCR PANEL NOT DETECTED; PARAINFLUENZA VIRUS 1 NOT DETECTED; PARAINFLUENZA VIRUS 2 NOT DETECTED; PARAINFLUENZA VIRUS 3 NOT DETECTED; PARAINFLUENZA VIRUS 4 NOT DETECTED; RHINOVIRUS/ENTEROVIRUS NOT DETECTED; RSV- RESP PCR PANEL NOT DETECTED; SARS-CoV-2 -RESP PCR PANEL NOT DETECTED
--- NOTE | 2022-11-13 23:35 | ED Physician Documentation ---
History of Present Illness - Stated complaint Stated Complaint: CHEST & BACK PX, - Chief complaint Chief Complaint: Cardiac - History obtained from History obtained from: Patient - Additonal information Additional information: HPI from patient. Patient presents with chest pain diffuse anterior with radiation to the neck, back, and across the upper abdomen.She was treated and released from this emerg ency department 3 days ago (November 10, 2022); at that time, she presented with upper respiratory infection symptoms as well as chest and back pain. On that presentation, I was the ED physician on duty. On this previous visit her chest x-ray was unremarkable, and her respiratory PCR viral panel was positive for coronavirus NL 63. There are no exacerbating or ameliorating factors regarding her presenting symptoms. She says the cough and shortness of breath which she had as part of her chief complaint on the previous visit have resolved, but the chest and back pain have become more pronounced, and she is also concerned about the radiation to the neck and the upper abdomen which developed earlier today. Review of Systems Constitutional: denies: Fever, Chills, Sweats Cardiac: reports: Chest pain / pressure. 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: Hysterectomy - Present Medications Home Medications: Ambulatory Orders Medication Instructions Recorded Confirmed Labetalol HCl 200 mg PO BID 11/10/22 11/10/22 - Allergies Allergies/Adverse Reactions: Allergies Allergy/AdvReac Type Severity Reaction Status Date / Time amoxicillin Allergy Severe tightness Verified 11/13/22 22:21 in throat erythromycin base Allergy Emesis Verified 11/13/22 22:21 - Social History Does the pt smoke?: No Smoking Status: Never smoker Does the pt drink ETOH?: No Does the pt have substance abuse?: No - Immunizations Immunizations are current?: Yes - POLST Patient has POLST: No PD ED PE NORMAL - Vitals Vital signs reviewed: Yes - General General: Alert and oriented X 3, No acute distress, Well developed/nourished - HEENT HEENT: Moist mucous membranes - Neck Neck: Supple, no meningeal sign - Cardiac Cardiac: RRR, No murmur, No gallop, No rub - Respiratory Respiratory: No respiratory distress, Clear bilaterally - Abdomen Abdomen: Normal bowel sounds, Soft, Non tender, Non distended - Extremities Extremities: No edema Results - Vitals Vitals: Oxygen O2 Source Room air - EKG (time done) No standard instances Rate: Rate (enter#) (75) Rhythm: NSR Intervals: Normal [place] QRS: Normal Ischemia: Normal ST segments - Labs Labs: Laboratory Tests 11/13/22 11/13/22 11/13/22 22:31 22:31 22:31 WBC 10.4 RBC 4.57 Hgb 13.6 Hct 40.8 MCV 89.3 MCH 29.8 MCHC 33.3 RDW 11.9 L Plt Count 291 MPV 10.3 Neut # (Auto) 7.5 H Lymph # (Auto) 2.3 [place] # (Auto) 0.5 Eos # (Auto) 0.1 Baso # (Auto) 0.0 Absolute Nucleated RBC 0.00 Nucleated RBC % 0.0 Sodium 135 Potassium 3.7 Chloride 98 L Carbon Dioxide 21 Anion Gap 16.0 H BUN 12 Creatinine 0.7 Estimated GFR (MDRD) 96 Glucose 101 H Calcium 10.1 Total Bilirubin 0.7 AST 15 ALT 16 Alkaline Phosphatase 76 Total Protein 7.8 Albumin 4.5 Globulin 3.3 Albumin/Globulin Ratio 1.4 Lipase 35 Urine Color Urine Clarity Urine pH Ur Specific [place] Urine Protein Urine Glucose (UA) Urine Ketones Urine Occult Blood Urine Nitrite Urine Bilirubin Urine Urobilinogen Ur Leukocyte Esterase Urine RBC Urine WBC Ur Squamous Epith Cells Urine Bacteria Urine Mucus Ur Microscopic Review Urine Culture Comments Nasal Adenovirus (PCR) NOT DETECTED Nasal B. parapertussis DNA (PCR) NOT DETECTED Nasal Coronavir 229E PCR NOT DETECTED Nasal Coronavir HKU1 PCR NOT DETECTED Nasal Coronavir NL63 PCR DETECTED A Nasal Coronavir OC43 PCR NOT DETECTED Nasal Enterovir/Rhinovir PCR NOT DETECTED Nasal Influenza B PCR NOT DETECTED Nasal Influenza A PCR NOT DETECTED Nasal Parainfluen 1 PCR NOT DETECTED Nasal Parainfluen 2 PCR NOT DETECTED Nasal Parainfluen 3 PCR NOT DETECTED Nasal Parainfluen 4 PCR NOT DETECTED Nasal RSV (PCR) NOT DETECTED Nasal B.pertussis DNA PCR NOT DETECTED Nasal C.pneumoniae (PCR) NOT DETECTED Unruly Human Metapneumo PCR NOT DETECTED Nasal M.pneumoniae (PCR) NOT DETECTED Nasal SARS-CoV-2 (PCR) NOT DETECTED 11/13/22 22:42 WBC RBC Hgb Hct MCV MCH MCHC RDW Plt Count MPV Neut # (Auto) Lymph # (Auto) [place] # (Auto) Eos # (Auto) Baso # (Auto) Absolute Nucleated RBC Nucleated RBC % Sodium Potassium Chloride Carbon Dioxide Anion Gap BUN Creatinine Estimated GFR (MDRD) Glucose Calcium Total Bilirubin AST ALT Alkaline Phosphatase Total Protein Albumin Globulin Albumin/Globulin Ratio Lipase Urine Color YELLOW Urine Clarity HAZY Urine pH 6.0 Ur Specific [place] >=1.030 H Urine Protein NEGATIVE Urine Glucose (UA) NEGATIVE Urine Ketones TRACE Urine Occult Blood NEGATIVE Urine Nitrite NEGATIVE Urine Bilirubin NEGATIVE Urine Urobilinogen 0.2 (NORMAL) Ur Leukocyte Esterase NEGATIVE Urine RBC 0-5 Urine WBC 4-5 Ur Squamous Epith Cells MOD Squamous H Urine Bacteria Few Urine Mucus Moderate Strands Ur Microscopic Review INDICATED Urine Culture Comments NOT INDICATED Nasal Adenovirus (PCR) Nasal B. parapertussis DNA (PCR) Nasal Coronavir 229E PCR Nasal Coronavir HKU1 PCR Nasal Coronavir NL63 PCR Nasal Coronavir OC43 PCR Nasal Enterovir/Rhinovir PCR Nasal Influenza B PCR Nasal Influenza A PCR Nasal Parainfluen 1 PCR Nasal Parainfluen 2 PCR Nasal Parainfluen 3 PCR Nasal Parainfluen 4 PCR Nasal RSV (PCR) Nasal B.pertussis DNA PCR Nasal C.pneumoniae (PCR) Unruly Human Metapneumo PCR Nasal M.pneumoniae (PCR) Nasal SARS-CoV-2 (PCR) - Rads (name of study) chest xray Radiology: Prelim report reviewed, EMP read indepedently, See rad report PD Medical Decision Making - ED course Complexity details: reviewed old records, reviewed results, re-evaluated patient, considered differential, d/w patient ED course: Patient is given 30 mg Toradol intravenously And on reevaluation, she reports good relief of her symptoms with this medication. Chest x-ray is without abnormality tonight. The nasal swab that was sent for viral PCR respiratory panel again is positive for coronavirus NL 63, negative for all other viruses tested. Additionally, a CBC, abdominal panel, and urinalysis are ordered these tests have no markable nor diagnostic results. EKG is without abnormalities. Test results are discussed with patient. The cause of her symptoms is not apparent at this time. Return precautions discussed. Departure - Departure Disposition: 01 Home, Self Care Clinical Impression: Chest pain Qualifiers: Chest pain type: unspecified Qualified Code(s): R07.9 - Chest pain, unspecified Condition: Good Instructions: ED Chest Pain Atypical Unkn Cause Follow-Up: Raymond Manuel MD [Primary Care Provider] - Comments: Your nasal swab viral test again shows the same virus as the previous one performed few days ago in this emergency department (coronavirus NL 63, which is not the virus that causes COVID; it rarely causes symptoms beyond those of a common cold). Several other viruses were tested with the nasal swab, and all the other viruses tested for were negative including COVID and influenza. The results of your blood tests and chest x-ray are unremarkable. Similarly, there are no concerning findings on your EKG. The cause of your symptoms is not apparent at this time. While many viruses can cause generalized aches and pains, your description of your symptoms seem more localized to the chest, back, and neck as opposed to "aching everywhere". Although this still could be a result of this viral infection, even if it is not, I do not have any finding on tonight's tests to suggest a more concerning or ominous cause. Certainly, if your symptoms worsen anyway, you should return to the emergency department for reevaluation. Otherwise, follow-up with your primary care provider, next available appointment, for reevaluation. Discharge Date/Time: 11/14/22 02:08
[2022-11-13] MEDS ORDERED: KETOROLAC 30 MG/ML VIAL IVP STA (23:47)
--- NOTE | 2022-11-14 00:49 | XRAY Report ---
PROCEDURE: Chest 2 View X-Ray INDICATIONS: chest pain TECHNIQUE: 2 views of the chest were acquired. COMPARISON: 11/10/2022. FINDINGS: Surgical changes and devices: None. Lungs and pleura: No pleural effusions or pneumothorax. Lungs are clear. Mediastinum: Mediastinal contours are normal. Heart size is normal. Bones and chest wall: No suspicious bony abnormalities. Soft tissues appear unremarkable. IMPRESSION: 1. No acute cardiopulmonary disease. Reviewed by: Jimmy Hernandez MD on 11/14/2022 12:59 AM [facility] Approved by: Jimmy Hernandez MD on 11/14/2022 12:59 AM [facility] Station ID: [id number]
[2022-11-14 02:08] VITALS: BP 138/101
== END 2022-11-14 02:08 | disposition home or self-care (01) ==
LOC: ED 22:09
DX: R07.89 Other chest pain (principal); I10 Essential (primary) hypertension
CPT/HCPCS: 36415; 80053; 81001; 81003; 83690; 85025; 87086; 87633; 93005; 96374; 99284

== ENCOUNTER 2023-01-19 21:45 | Emergency (ER) | payer MEDICAID ==
[2023-01-19 22:04] LABS: BILIRUBIN,URINE NEGATIVE (NEGATIVE); GLUCOSE, URINE (UA) NEGATIVE (NEGATIVE); KETONES,URINE (UA) NEGATIVE (NEGATIVE); LEUKOCYTE ESTERASE, URINE NEGATIVE (NEGATIVE); NITRITE,URINE NEGATIVE (NEGATIVE); OCCULT BLOOD,URINE NEGATIVE (NEGATIVE); PH,URINE 5.5 PH (5.0-7.5); PROTEIN,URINE NEGATIVE (NEGATIVE); UROBILINOGEN,URINE 0.2 (NORMAL) E.U./dL (NORMAL)
[2023-01-19 22:07] LABS: CLARITY,URINE HAZY (CLEAR); HCG UR QUAL NEGATIVE
[2023-01-19 22:19] LABS: BACTERIA,URINE Few /HPF (None Seen); RBC,URINE 0-5 /HPF (0-5); SQUAMOUS EPITHELIAL CELL,UR MANY Squamous (<= Few); WBC,URINE 0-3 /HPF (0-5)
[2023-01-19] MEDS ORDERED: levoFLOXacin 250 MG TABLET PO STA (22:56)
[2023-01-19 23:06] VITALS: BP 153/102
--- NOTE | 2023-01-21 21:51 | ED Physician Documentation ---
History of Present Illness - Stated complaint Stated Complaint: SINUS PRESSURE/LOWER BACK/ABD PX - Chief complaint Chief Complaint: Abd Pain - History obtained from History obtained from: Patient - Additonal information Additional information: c/o bilateral frontal sinus congestion and pressure x 2 weeks, waxing and waning severity but constant and worse over past 2-3 days denies fever, dyspnea. She has bifrontal headache. 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 - Present Medications Home Medications: Ambulatory Orders Medication Instructions Recorded Confirmed Labetalol HCl 200 mg PO BID 11/10/22 01/19/23 levoFLOXacin [Levofloxacin] 500 mg PO DAILY #7 tablet 01/19/23 - Allergies Allergies/Adverse Reactions: Allergies Allergy/AdvReac Type Severity Reaction Status Date / Time amoxicillin Allergy Severe tightness Verified 01/19/23 21:55 in throat erythromycin base Allergy Emesis Verified 01/19/23 21:55 - Social History Does the pt smoke?: No Smoking Status: Never smoker Does the pt drink ETOH?: No Does the pt have substance abuse?: No - Immunizations Immunizations are current?: Yes - POLST Patient has POLST: No PD ED PE NORMAL - Vitals Vital signs reviewed: Yes - General General: Alert and oriented X 3, No acute distress, Well developed/nourished - HEENT HEENT: Moist mucous membranes, Pharynx benign - Neck Neck: Supple, no meningeal sign - Respiratory Respiratory: No respiratory distress, Clear bilaterally Results - Vitals Vitals: Oxygen O2 Source Room air - Labs Labs: Laboratory Tests 01/19/23 22:00 Urine Color LT. YELLOW Urine Clarity HAZY Urine pH 5.5 Ur Specific [place] <=1.005 Urine Protein NEGATIVE Urine Glucose (UA) NEGATIVE Urine Ketones NEGATIVE Urine Occult Blood NEGATIVE Urine Nitrite NEGATIVE Urine Bilirubin NEGATIVE Urine Urobilinogen 0.2 (NORMAL) Ur Leukocyte Esterase NEGATIVE Urine RBC 0-5 Urine WBC 0-3 Ur Squamous Epith Cells MANY Squamous H Urine Bacteria Few Ur Microscopic Review INDICATED Urine Culture Comments NOT INDICATED Urine HCG, Qual NEGATIVE PD Medical Decision Making - ED course Complexity details: considered differential, d/w patient ED course: Presents with uncomplicated though ongoing sinusitis. Given that it has been approximately 2 weeks, a course of antibiotic would be reasonable at this point and patient agrees with this intervention. She is given levaquin in ED with rx e-prescribed to her pharmacy of choice. Departure - Departure Disposition: 01 Home, Self Care Clinical Impression: Sinusitis Qualifiers: Sinusitis location: frontal Chronicity: acute Recurrence: not specified as recurrent Qualified Code(s): J01.10 - Acute frontal sinusitis, unspecified Condition: Good Instructions: ED Sinusitis Abx Tx Follow-Up: Raymond Manuel MD [Primary Care Provider] - Prescriptions: levoFLOXacin [Levofloxacin] 500 mg PO DAILY #7 tablet Comments: You are given the first dose of an antibiotic (Levaquin) in the emergency department for sinusitis, and a prescription for a 1 week course of the same antibiotic has been electronically submitted to the [facility] pharmacy in [place]. The urinalysis had no abnormality, and the bedside ultrasound that I performed did not show any evidence of any gallbladder problem such as a gallstone, nor did I see any swelling of the kidney which would be expected if you were having renal colic (pain associated with a kidney stone). This does not rule out the possibility of a kidney stone, but provided that you are not having [id number] symptoms such as pain or uncontrollable vomiting, emergent testing at this time is not indicated (such as a CT scan of your abdomen). Realize that, of course, you can always return to the emergency department for reevaluation if your symptoms worsen, or if you develop new/concerning signs/symptoms such as fever, vomiting, severe pain. Discharge Date/Time: 01/19/23 23:06
== END 2023-01-19 23:06 | disposition home or self-care (01) ==
LOC: ED 21:45
DX: J01.10 Acute frontal sinusitis, unspecified (principal)
CPT/HCPCS: 81001; 81025; 99283; A9270; 81003; 87086

== ENCOUNTER 2023-02-05 21:38 | Emergency (ER) | payer MEDICAID ==
[2023-02-05] MEDS ORDERED: SODIUM CHLORIDE 0.9% 1,000 ML IV STA (21:56)
[2023-02-05] MEDS ORDERED: KETOROLAC 15 MG/ML VIAL IVP STA (21:57)
[2023-02-05 21:58] LABS: BILIRUBIN,URINE NEGATIVE (NEGATIVE); CLARITY,URINE CLOUDY (CLEAR); GLUCOSE, URINE (UA) NEGATIVE (NEGATIVE); KETONES,URINE (UA) NEGATIVE (NEGATIVE); LEUKOCYTE ESTERASE, URINE SMALL (NEGATIVE); NITRITE,URINE POSITIVE (NEGATIVE); OCCULT BLOOD,URINE LARGE (NEGATIVE); PH,URINE 6.5 PH (5.0-7.5); PROTEIN,URINE >=300 mg/dL (NEGATIVE); UROBILINOGEN,URINE 1 (NORMAL) E.U./dL (NORMAL)
[2023-02-05 22:00] LABS: HCG UR QUAL NEGATIVE
[2023-02-05 22:10] LABS: BACTERIA,URINE Moderate /HPF (None Seen); RBC,URINE TNTC /HPF (0-5); SQUAMOUS EPITHELIAL CELL,UR RARE Squamous (<= Few); WBC,URINE >25 /HPF (0-5)
[2023-02-05 22:17] LABS: BASOPHILS % (AUTO) 0.3 %; EOSINOPHILS % (AUTO) 0.1 %; HCT - HEMATOCRIT 37.6 % (37.0-47.0); HGB - HEMOGLOBIN 12.7 g/dL (12.0-16.0); LYMPHOCYTES # (AUTO) 1.3 10^3/uL (1.5-3.5); LYMPHOCYTES % (AUTO) 11.4 %; MEAN CORPUSCULAR HEMOGLOBIN 29.6 pg (27.0-31.0); MEAN CORPUSCULAR HGB CONC 33.8 g/dL (32.0-36.0); MEAN CORPUSCULAR VOLUME 87.6 fL (81.0-99.0); MEAN PLATELET VOLUME 10.4 fL (7.9-10.8); MONOCYTES # (AUTO) 0.9 10^3/uL (0.0-1.0); MONOCYTES % (AUTO) 7.7 %; NEUTROPHILS # (AUTO) 8.9 10^3/uL (1.5-6.6); NEUTROPHILS % (AUTO) 80.1 %; PLT - PLATELET COUNT 217 10^3/uL (130-450); RED BLOOD COUNT 4.29 10^6/uL (4.20-5.40); RED CELL DISTRIBUTION WIDTH 11.4 % (12.0-15.0); WHITE BLOOD COUNT 11.1 x10^3/uL (4.8-10.8)
[2023-02-05] MEDS ORDERED: cefTRIAXone 1 GM in SODIUM CHLORIDE 0.9% MINIBAG 100 ML IV STA (22:22)
--- NOTE | 2023-02-05 22:24 | ED Physician Documentation ---
History of Present Illness - Stated complaint Stated Complaint: ABD PX - Chief complaint Chief Complaint: Abd Pain - History obtained from History obtained from: Patient - Additonal information Additional information: 32yF with pmh kidney stones p/w dysuria, hematuria, and sharp LLQ pain radiating to back X couple days. denies fever, nausea, increased frequency. Review of Systems Constitutional: denies: Fever GI: reports: Abdominal Pain. 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 - Present Medications Home Medications: Ambulatory Orders Medication Instructions Recorded Confirmed Labetalol HCl 200 mg PO BID 11/10/22 02/05/23 Cefpodoxime Proxetil [Vantin] 200 mg PO Q12H #28 tablet 02/05/23 Ketorolac [Toradol] 10 mg PO Q6H PRN #20 tablet 02/05/23 Tamsulosin [Flomax] 0.4 mg PO DAILY 14 Days #14 tab 02/05/23 - Allergies Allergies/Adverse Reactions: Allergies Allergy/AdvReac Type Severity Reaction Status Date / Time amoxicillin Allergy Severe tightness Verified 02/05/23 21:51 in throat erythromycin base Allergy Emesis Verified 02/05/23 21:51 - Social History Does the pt smoke?: No Smoking Status: Never smoker Does the pt drink ETOH?: No Does the pt have substance abuse?: No - Immunizations Immunizations are current?: Yes - POLST Patient has POLST: No PD ED PE NORMAL - Vitals Vital signs reviewed: Yes - General General: Alert and oriented X 3, No acute distress, Well developed/nourished - HEENT HEENT: Atraumatic, PERRL, EOMI - Neck Neck: Supple, no meningeal sign - Cardiac Cardiac: RRR - Respiratory Respiratory: No respiratory distress, Clear bilaterally - Abdomen Abdomen: Non tender, Non distended - Back Back: Other (L CVA ttp) - Derm Derm: Normal color, Warm and dry Results - Vitals Vitals: Vital Signs - 24 hr 02/05/23 02/05/23 21:49 22:14 Temperature 36.8 C Heart Rate 119 H 119 H Respiratory 17 16 Rate Blood Pressure 129/116 H 152/109 H O2 Saturation 100 100 Oxygen O2 Source Room air - Labs Labs: Laboratory Tests 02/05/23 02/05/23 02/05/23 21:40 21:40 22:06 WBC 11.1 H RBC 4.29 Hgb 12.7 Hct 37.6 MCV 87.6 MCH 29.6 MCHC 33.8 RDW 11.4 L Plt Count 217 MPV 10.4 Neut # (Auto) 8.9 H Lymph # (Auto) 1.3 L [place] # (Auto) 0.9 Eos # (Auto) 0.0 Baso # (Auto) 0.0 Absolute Nucleated RBC 0.00 Nucleated RBC % 0.0 Sodium Potassium Chloride Carbon Dioxide Anion Gap BUN Creatinine Estimated GFR (MDRD) Glucose Calcium Total Bilirubin AST ALT Alkaline Phosphatase Total Protein Albumin Globulin Albumin/Globulin Ratio Lipase Urine Color YELLOW Urine Clarity CLOUDY Urine pH 6.5 Ur Specific [place] 1.025 Urine Protein >=300 H Urine Glucose (UA) NEGATIVE Urine Ketones NEGATIVE Urine Occult Blood LARGE H Urine Nitrite POSITIVE H Urine Bilirubin NEGATIVE Urine Urobilinogen 1 (NORMAL) Ur Leukocyte Esterase SMALL H Urine RBC TNTC H Urine WBC >25 H Ur Squamous Epith Cells RARE Squamous Urine Bacteria Moderate H Ur Microscopic Review INDICATED Urine Culture Comments INDICATED Urine HCG, Qual NEGATIVE 02/05/23 22:06 WBC RBC Hgb Hct MCV MCH MCHC RDW Plt Count MPV Neut # (Auto) Lymph # (Auto) [place] # (Auto) Eos # (Auto) Baso # (Auto) Absolute Nucleated RBC Nucleated RBC % Sodium 138 Potassium 3.0 L Chloride 102 Carbon Dioxide 27 Anion Gap 9.0 BUN 9 Creatinine 0.8 Estimated GFR (MDRD) 83 L Glucose 114 H Calcium 8.8 Total Bilirubin 0.5 AST 35 ALT 43 Alkaline Phosphatase 85 Total Protein 7.3 Albumin 3.9 Globulin 3.4 Albumin/Globulin Ratio 1.1 Lipase 29 Urine Color Urine Clarity Urine pH Ur Specific [place] Urine Protein Urine Glucose (UA) Urine Ketones Urine Occult Blood Urine Nitrite Urine Bilirubin Urine Urobilinogen Ur Leukocyte Esterase Urine RBC Urine WBC Ur Squamous Epith Cells Urine Bacteria Ur Microscopic Review Urine Culture Comments Urine HCG, Qual PD Medical Decision Making - ED course ED course: 32yF with hx kidney stones p/w recurrent renal stones today as well as uti on u/a . cbc and abdominal panel ordered. she has normal renal function. no hydro on ct. she has a urologist at [facility] she will f/u with. IV toradol provided with relief. return precautions given. Departure - Departure Disposition: 01 Home, Self Care Clinical Impression: UTI (urinary tract infection), Kidney stones Condition: Stable Instructions: UTI, Kidney Stones Follow-Up: Judit Tafoya MD [Physician No Access] - Prescriptions: Tamsulosin [Flomax] 0.4 mg PO DAILY 14 Days #14 tab Ketorolac [Toradol] 10 mg PO Q6H PRN #20 tablet PRN Reason: Pain Cefpodoxime Proxetil [Vantin] 200 mg PO Q12H #28 tablet Comments: You were seen in the emergency department for kidney stones and urinary tract infection. You have a few stones on the left side measuring less than 2 mm.He should be able to pass but you need to follow-up promptly with urology and retu rn to the emergency department immediately if you have fever (temp >100.4) or do not have relief of urinary symptoms after 48hours of antibiotics. Return also if you have any other new or worsening symptoms or other concerns.
[2023-02-05] MEDS ORDERED: cefTRIAXone 1 GM VIAL ONE (22:27)
[2023-02-05 22:30] LABS: ALBUMIN 3.9 g/dL (3.2-5.5); ALBUMIN/GLOBULIN RATIO 1.1 (1.0-2.2); BILIRUBIN,TOTAL 0.5 mg/dL (0.2-1.0); CALCIUM 8.8 mg/dL (8.5-10.3); CREATININE 0.8 mg/dL (0.4-1.0); TOTAL PROTEIN 7.3 g/dL (6.7-8.2)
--- NOTE | 2023-02-05 23:47 | CT Report ---
PROCEDURE: ABDOMEN/PELVIS WO INDICATIONS: hematuria, hx stones TECHNIQUE: Noncontrast 5 mm thick sections acquired from the diaphragms to the symphysis. 5 mm coronal and sagi ttal reformats were then performed. For radiation dose reduction, the following was used: automated exposure control, adjustment of mA and/or kV according to patient size. COMPARISON: None. FINDINGS: Image quality: Excellent. Lung bases: There is mild dependant atelectasis. Heart: Heart is normal in size. URINARY: Right Kidney and Ureter: No stones or hydronephrosis. No hydroureter. Left Kidney and Ureter: There are 3 small nonobstructing left renal stones, the largest measuring u p to 0.2 cm. No hydronephrosis. No hydroureter. Bladder: Normal wall thickness. No stones. ABDOMEN: Liver: Noncontrast evaluation of the liver demonstrates no discrete mass. Gallbladder: Within normal limits without calcified gallstones. Biliary ducts: No biliary ductal dilatation. Pancreas: Unremarkable. Spleen: Normal in size. Adrenal Glands: No adrenal nodules. Stomach and Bowel: Stomach, small bowel loops, and colon are normal in caliber and wall thickness. T he visualized appendix appears within normal limits. Peritoneum: No abnormal intraperitoneal fluid. No free air. Ventral Wall: No hernia. Abdominal Nodes: No retroperitoneal or mesenteric adenopathy by size criteria. Vessels: Aorta and inferior vena cava are normal in size. PELVIS: Pelvic Organs:Uterus is surgically absent. Pelvic Nodes: No enlarged lymph nodes. Miscellaneous: No inguinal hernias identified. Bones: Visualized osseous structures demonstrate no suspicious focal lesions. IMPRESSION: 1. Left nephrolithiasis without evidence of obstructive uropathy. 2. No evidence of appendicitis. Reviewed by: Jimmy Hernandez MD on 02/05/2023 11:59 PM PDT Approved by: Jimmy Hernandez MD on 02/05/2023 11:59 PM PDT Station ID: [id number]
[2023-02-06] MEDS ORDERED: POTASSIUM CHLORIDE 20 MEQ/15 ML UDC PO STA (00:09)
[2023-02-06] MEDS ORDERED: oxyCODONE/ACET 5/325 Prepack 4 PO STA (00:37)
[2023-02-06] MEDS ORDERED: ONDANSETRON ODT 4 MG Prepack 2 TL PRN (00:37)
[2023-02-06 00:53] VITALS: BP 148/105
== END 2023-02-06 00:53 | disposition home or self-care (01) ==
LOC: ED 21:38
DX: N20.0 Calculus of kidney (principal); N39.0 Urinary tract infection, site not specified; Z87.442 Personal history of urinary calculi
CPT/HCPCS: 36415; 74176; 80053; 81001; 81025; 83690; 85025; 87077; 87086; 87181; 99283; 99284; A9270; 81003

== ENCOUNTER 2023-08-12 08:58 | Outpatient (CLI) | payer MEDICAID ==
[2023-08-12 12:25] LABS: BASOPHILS % (AUTO) 0.4 %; EOSINOPHILS # (AUTO) 0.1 10^3/uL (0.0-0.7); EOSINOPHILS % (AUTO) 1.4 %; HCT - HEMATOCRIT 43.3 % (37.0-47.0); HGB - HEMOGLOBIN 14.4 g/dL (12.0-16.0); LYMPHOCYTES # (AUTO) 1.6 10^3/uL (1.5-3.5); LYMPHOCYTES % (AUTO) 28.4 %; MEAN CORPUSCULAR HEMOGLOBIN 30.1 pg (27.0-31.0); MEAN CORPUSCULAR HGB CONC 33.3 g/dL (32.0-36.0); MEAN CORPUSCULAR VOLUME 90.4 fL (81.0-99.0); MEAN PLATELET VOLUME 10.7 fL (7.9-10.8); MONOCYTES # (AUTO) 0.4 10^3/uL (0.0-1.0); MONOCYTES % (AUTO) 7.6 %; NEUTROPHILS # (AUTO) 3.4 10^3/uL (1.5-6.6); PLT - PLATELET COUNT 294 10^3/uL (130-450); RED BLOOD COUNT 4.79 10^6/uL (4.20-5.40); RED CELL DISTRIBUTION WIDTH 11.7 % (12.0-15.0); WHITE BLOOD COUNT 5.5 x10^3/uL (4.8-10.8)
[2023-08-12 12:56] LABS: THYROID STIMULATING HORMONE 1.04 uIU/mL (0.34-5.60)
[2023-08-12 13:06] LABS: ALBUMIN 4.9 g/dL (3.2-5.5); ALBUMIN/GLOBULIN RATIO 1.6 (1.0-2.2); BILIRUBIN,TOTAL 0.8 mg/dL (0.2-1.0); CALCIUM 10.3 mg/dL (8.5-10.3); CREATININE 0.7 mg/dL (0.6-1.3); POTASSIUM 3.2 mmol/L (3.5-4.5)
== END 2023-08-12 08:59 | disposition home or self-care (01) ==
LOC: LAB.N 08:58
PROVIDERS: ATTEND Family Medicine
DX: I10 Essential (primary) hypertension (principal); F33.1 Major depressive disorder, recurrent, moderate
CPT/HCPCS: 36415; 80050

== ENCOUNTER 2023-08-19 08:35 | Outpatient (CLI) | payer MEDICAID ==
[2023-08-19 12:21] LABS: CALCIUM 9.6 mg/dL (8.5-10.3); CREATININE 0.7 mg/dL (0.6-1.3); POTASSIUM 3.4 mmol/L (3.5-4.5)
== END 2023-08-19 08:36 | disposition home or self-care (01) ==
LOC: LAB.N 08:35
PROVIDERS: ATTEND Family Medicine
DX: I10 Essential (primary) hypertension (principal)
CPT/HCPCS: 36415; 80048; 82088; 84244

== ENCOUNTER 2023-10-29 21:43 | Emergency (ER) | payer MEDICAID ==
[2023-10-29 22:26] VITALS: O2SAT 100
--- NOTE | 2023-10-29 22:35 | ED Physician Documentation ---
History of Present Illness - Stated complaint Stated Complaint: CHEST PX/NECK PX/NAVARRO - Chief complaint Chief Complaint: Heent - History obtained from History obtained from: Patient - Additonal information Additional information: 32-year-old woman presented the emergency department with headache, nausea, and photophobia, midsternal chest pain sharp intermittent worse with walking without relief with Motrin and Excedrin. This has been going on for couple of days. 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 - Present Medications Home Medications: Ambulatory Orders Medication Instructions Recorded Confirmed Citalopram Hydrobromide [Celexa] 20 mg PO DAILY 10/29/23 10/29/23 Cyclobenzaprine HCl 5 mg PO BID PRN 10/29/23 10/29/23 Losartan/Hydrochlorothiazide 1 each PO DAILY 10/29/23 10/29/23 [Losartan-Hctz 100-12.5 mg Tab] Metoprolol Succinate [Toprol Xl] 50 mg PO DAILY 10/29/23 10/29/23 QUEtiapine [SEROquel] 100 mg PO QPM 10/29/23 10/29/23 - Allergies Allergies/Adverse Reactions: Allergies Allergy/AdvReac Type Severity Reaction Status Date / Time amoxicillin Allergy Severe tightness Verified 10/29/23 22:21 in throat erythromycin base Allergy Emesis Verified 10/29/23 22:21 - Social History Does the pt smoke?: No Smoking Status: Never smoker Does the pt drink ETOH?: No Does the pt have substance abuse?: No - Immunizations Immunizations are current?: Yes - POLST Patient has POLST: No PD ED PE NORMAL - Vitals Vital signs reviewed: Yes - General General: Alert and oriented X 3, No acute distress, Well developed/nourished - HEENT HEENT: Atraumatic, PERRL, EOMI, Moist mucous membranes, Pharynx benign - Neck Neck: Supple, no meningeal sign - Cardiac Cardiac: RRR - Respiratory Respiratory: No respiratory distress, Clear bilaterally - Abdomen Abdomen: Non tender, Non distended - Derm Derm: Normal color, Warm and dry - Extremities Extremities: No deformity - Neuro Neuro: No motor deficit, No sensory deficit - Psych Psych: Normal mood, Normal affect Results - Vitals Vitals: Vital Signs - 24 hr 10/29/23 10/30/23 10/30/23 22:14 00:00 01:00 Temperature 98.1 C H Heart Rate 78 88 92 Respiratory 17 19 20 Rate Blood Pressure 131/93 H 129/92 H 113/76 O2 Saturation 100 100 100 Oxygen O2 Source Room air - EKG (time done) 2225` EKG releavant findings:: EKG personally interpreted by author of this note. Relevant findings are: Rate: Rate (enter#) (79) Rhythm: NSR [place]: Normal Intervals: Normal [place] QRS: Normal Ischemia: Normal ST segments - Labs Labs: Laboratory Tests 10/29/23 10/29/23 22:48 22:48 WBC 6.3 RBC 3.80 L Hgb 11.8 L Hct 34.3 L MCV 90.3 MCH 31.1 H MCHC 34.4 RDW 11.5 L Plt Count 274 MPV 10.0 Neut # (Auto) 3.6 Lymph # (Auto) 2.2 [place] # (Auto) 0.4 Eos # (Auto) 0.1 Baso # (Auto) 0.0 Absolute Nucleated RBC 0.00 Nucleated RBC % 0.0 Sodium 136 Potassium 2.7 L Chloride 101 Carbon Dioxide 29 Anion Gap 6.0 BUN 9 Creatinine 0.6 Estimated GFR (MDRD) 115 Glucose 81 Calcium 8.8 Total Bilirubin 0.4 AST 15 ALT 14 Alkaline Phosphatase 76 Troponin I High Sens 2.3 Total Protein 7.0 Albumin 4.1 Globulin 2.9 Albumin/Globulin Ratio 1.4 Lipase 26 Beta HCG, Quant < 0.6 PD Medical Decision Making - ED course ED course: 32-year-old woman p/w atypical cp, nausea, navarro X 2-3 days. She has had issues with her potassium before and it was 2.7 today, advised to restart her home potassium supplementation and to follow-up with her primary care provider this week. Also with anemia with hemoglobin of 11.8, present on previous lab work. Patient states she has iron deficiency anemia. Advised to follow-up with her primary care provider regarding this and to start iron supplementation [id number]. Provided migraine cocktail for her headache symptoms with relief. Also provided potassium oral and IV supplementation. Return precautions given. Departure - Departure Clinical Impression: Headache, Chest pain, Nausea, Photophobia Condition: Stable Instructions: ED Chest Pain NonCardiac, Headache Migraine Triggers Prevent Comments: You were seen in the emergency department for medical evaluation and found to have low potassium and anemia. You should restart your home potassium supplements. You will also need to have your potassium rechecked in a week or so. Please follow-up with your primary care provider this week regarding these findings and return to the emergency department if you have any new or worsening symptoms or other concerns. Forms: PCP List
[2023-10-29 22:56] LABS: BASOPHILS % (AUTO) 0.6 %; EOSINOPHILS # (AUTO) 0.1 10^3/uL (0.0-0.7); EOSINOPHILS % (AUTO) 1.3 %; HCT - HEMATOCRIT 34.3 % (37.0-47.0); HGB - HEMOGLOBIN 11.8 g/dL (12.0-16.0); LYMPHOCYTES # (AUTO) 2.2 10^3/uL (1.5-3.5); LYMPHOCYTES % (AUTO) 35.1 %; MEAN CORPUSCULAR HEMOGLOBIN 31.1 pg (27.0-31.0); MEAN CORPUSCULAR HGB CONC 34.4 g/dL (32.0-36.0); MEAN CORPUSCULAR VOLUME 90.3 fL (81.0-99.0); MONOCYTES # (AUTO) 0.4 10^3/uL (0.0-1.0); MONOCYTES % (AUTO) 6.2 %; NEUTROPHILS # (AUTO) 3.6 10^3/uL (1.5-6.6); NEUTROPHILS % (AUTO) 56.6 %; PLT - PLATELET COUNT 274 10^3/uL (130-450); RED CELL DISTRIBUTION WIDTH 11.5 % (12.0-15.0); WHITE BLOOD COUNT 6.3 x10^3/uL (4.8-10.8)
[2023-10-29 23:04] LABS: ALBUMIN 4.1 g/dL (3.2-5.5); ALBUMIN/GLOBULIN RATIO 1.4 (1.0-2.2); ALKALINE PHOSPHATASE 76 IU/L (42-121); ALT ALANINE AMINOTRANSFERASE 14 IU/L (10-60); AST ASPARTATE AMINOTRANSFERASE 15 IU/L (10-42); BILIRUBIN,TOTAL 0.4 mg/dL (0.2-1.0); BUN - BLOOD UREA NITROGEN 9 mg/dL (6-20); CALCIUM 8.8 mg/dL (8.5-10.3); CARBON DIOXIDE - CO2 29 mmol/L (21-32); CHLORIDE 101 mmol/L (101-111); CREATININE 0.6 mg/dL (0.6-1.3); GFR - MDRD 115 (>89); GLUCOSE 81 mg/dL (74-104); LIPASE 26 U/L (11-82); POTASSIUM 2.7 mmol/L (3.5-4.5); SODIUM 136 mmol/L (135-145)
--- NOTE | 2023-10-29 23:12 | XRAY Report ---
PROCEDURE: Chest 2V INDICATIONS: cp TECHNIQUE: 2 views of the chest were acquired. COMPARISON: Chest x-ray, 11/13/2022. FINDINGS: Surgical changes and devices: None. Lungs and pleura: No pleural effusions or pneumothorax. Lungs are clear. Mediastinum: Mediastinal contours appear normal. Heart size is normal. Bones and chest wall: No suspicious bony lesions. Overlying soft tissues appear unremarkable. IMPRESSION: No acute cardiopulmonary process. Reviewed by: Vania Rod MD on 10/29/2023 11:11 PM PST Approved by: Vania Rod MD on 10/29/2023 11:11 PM PST Station ID: [id number]
[2023-10-29 23:24] LABS: TROPONIN I HIGH SENSITIVITY 2.3 ng/L (2.3-14.8)
[2023-10-29] MEDS ORDERED: POTASSIUM CHLOR 10 MEQ/100 ML 10 MEQ/100 ML BAG IV STA (23:38)
[2023-10-29] MEDS ORDERED: POTASSIUM CHLORIDE 20 MEQ/15 ML UDC PO STA (23:38)
[2023-10-29] MEDS ORDERED: KETOROLAC 15 MG/ML VIAL IVP STA (23:57)
[2023-10-29] MEDS ORDERED: diphenhydrAMINE INJ 50 MG/ML VIAL IVP STA (23:58)
[2023-10-29] MEDS ORDERED: SODIUM CHLORIDE 0.9% 1,000 ML IV STA (23:58)
[2023-10-29] MEDS ORDERED: ACETAMINOPHEN 325 MG TABLET PO STA (23:58)
[2023-10-29] MEDS ORDERED: METOCLOPRAMIDE 10 MG/2 ML VIAL IVP STA (23:58)
[2023-10-30] MEDS ORDERED: POTASSIUM CHLORIDE 20 MEQ TABLET PO STA (00:34)
[2023-10-30 02:04] VITALS: BP 119/87
== END 2023-10-30 02:07 | disposition home or self-care (01) ==
LOC: ED 21:43
DX: H53.149 Visual discomfort, unspecified (principal); R51.9 Headache, unspecified; R07.89 Other chest pain; R11.0 Nausea; E87.6 Hypokalemia; D50.9 Iron deficiency anemia, unspecified; I10 Essential (primary) hypertension; Z79.899 Other long term (current) drug therapy
CPT/HCPCS: 36415; 71046; 80053; 83690; 84132; 84484; 84702; 85025; 93005; 96365; 96375; 99284; 99285; A9270; J1200; J2765

== ENCOUNTER 2023-11-18 08:00 | Outpatient (CLI) | payer MEDICAID | END 2023-11-18 23:59 | disposition home or self-care (01) | LOC: LAB.WCP 08:00 | PROVIDERS: ATTEND Family Medicine | DX: N20.0 Calculus of kidney (principal); R10.9 Unspecified abdominal pain | CPT/HCPCS: 87086 ==

== ENCOUNTER 2023-11-20 09:24 | Outpatient (CLI) | payer MEDICAID ==
[2023-11-20 12:35] LABS: CALCIUM 9.7 mg/dL (8.5-10.3); CREATININE 0.7 mg/dL (0.6-1.3); POTASSIUM 3.8 mmol/L (3.5-4.5)
== END 2023-11-20 09:25 | disposition home or self-care (01) ==
LOC: LAB.N 09:24
PROVIDERS: ATTEND Family Medicine
DX: D64.9 Anemia, unspecified (principal); E87.6 Hypokalemia; N20.0 Calculus of kidney; R10.9 Unspecified abdominal pain
CPT/HCPCS: 36415; 80048; 82728; 87086

== ENCOUNTER 2024-01-08 14:04 | Emergency (ER) | payer MEDICAID ==
[2024-01-08 14:10] VITALS: BP 111/77; O2SAT 100
--- NOTE | 2024-01-08 14:20 | ED Physician Documentation ---
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 Pulled some heavy pallets 2 days ago and has had notable pains in both shoulder blade areas up to sides of posterior neck. Also has had nasal congestion and sinus drainage.) Where injury occurred: Work Timing - onset: How many days ago (has some shoulder muscle pains in the past and was seen at clinic with trigger injections in trapezius muscles in past couple of weeks without improvement. Now pains work since the pulling 2 days ago.) Timing - details: Gradual onset, Still present Worsened by: Moving, Palpating Associated symptoms: No: Weakness, Numbness, Tingling, Discolored (she says there is tenderness of msucles, presumed bruising of muscles/strain. 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 : Kidney stones, Other HEENT: None Psych: None, Anxiety Musculoskeletal: None Derm: None - Past Surgical History Past Surgical History: Yes /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: Hysterectomy - Present Medications Home Medications: Ambulatory Orders Medication Instructions Recorded Confirmed Citalopram Hydrobromide [Celexa] 20 mg PO DAILY 10/29/23 01/08/24 Losartan/Hydrochlorothiazide 1 each PO DAILY 10/29/23 01/08/24 [Losartan-Hctz 100-12.5 mg Tab] Metoprolol Succinate [Toprol Xl] 50 mg PO DAILY 10/29/23 01/08/24 QUEtiapine [SEROquel] 100 mg PO QPM 10/29/23 01/08/24 Baclofen [Lioresal] 10 mg PO DAILY 01/08/24 01/08/24 Cetirizine [ZyrTEC] 10 mg PO DAILY #15 tablet 01/08/24 Doxycycline Hyclate 100 mg PO BID 7 Days #14 cap 01/08/24 Fluticasone Propionate 2 spr NS DAILY 30 Days #1 ml 01/08/24 HYDROcod/ACETAM 5/325 [[place] 5/325] 1 ea PO Q6H PRN #18 tablet 01/08/24 Lidocaine Patch 5% [Lidoderm Patch] 1 patch TOP DAILY PRN #10 patch 01/08/24 Meloxicam [Mobic] 7.5 mg PO BID 10 Days #20 tablet 01/08/24 Potassium Chloride 10 meq PO DAILY 01/08/24 01/08/24 dexAMETHasone [Decadron] 4 mg PO DAILY #5 tablet 01/08/24 - Allergies Allergies/Adverse Reactions: Allergies Allergy/AdvReac Type Severity Reaction Status Date / Time amoxicillin Allergy Severe tightness Verified 01/08/24 14:09 in throat erythromycin base Allergy Emesis Verified 01/08/24 14:09 - Social History Does the pt smoke?: No Smoking Status: Never smoker Does the pt drink ETOH?: No Does the pt have substance abuse?: No - Immunizations Immunizations are current?: Yes - POLST Patient has POLST: No PD ED PE NORMAL - Vitals Vital signs reviewed: Yes - General General: Alert and oriented X 3, Well developed/nourished - HEENT HEENT: Pharynx benign. No: Ears normal (no redness but there is fluid behind TMs, mary jo left. ) - Neck Neck: Supple, no meningeal sign, No adenopathy - Cardiac Cardiac: RRR, No murmur - Respiratory Respiratory: Clear bilaterally - Back Back: No spinal TTP, Other (tender in trapezius muscle pattern sides of neck to suprascapular and medual scapular areas. No rash nor sores. ) - Derm Derm: Normal color, Warm and dry - Neuro Neuro: Alert and oriented X 3, No motor deficit, No sensory deficit Results - Vitals Vitals: Vital Signs - 24 hr 01/08/24 14:05 Temperature 36.3 C L Heart Rate 75 Respiratory 16 Rate Blood Pressure 111/77 O2 Saturation 100 Oxygen O2 Source Room air PD Medical Decision Making - ED course Complexity details: considered differential (sinus symptoms with congesiton, purulent drainage and sore throat c/w sinus infection. Has muscular upper back to neck pains c/w muscle strain. ), d/w patient Departure - Departure Disposition: 01 Home, Self Care Clinical Impression: Trapezius muscle strain, Sinusitis Condition: Stable Record reviewed to determine appropriate education?: Yes Instructions: ED Sprain Thoracic Spine Follow-Up: [facility] [Provider Group] Prescriptions: dexAMETHasone [Decadron] 4 mg PO DAILY #5 tablet Doxycycline Hyclate 100 mg PO BID 7 Days #14 cap Fluticasone Propionate 2 spr NS DAILY 30 Days #1 ml Lidocaine Patch 5% [Lidoderm Patch] 1 patch TOP DAILY PRN #10 patch PRN Reason: pain Meloxicam [Mobic] 7.5 mg PO BID 10 Days #20 tablet HYDROcod/ACETAM 5/325 [[place] 5/325] 1 ea PO Q6H PRN #18 tablet PRN Reason: Pain Cetirizine [ZyrTEC] 10 mg PO DAILY #15 tablet Comments: For your sinuses, we can use a combination of the anti-inflammatories (which will also be useful for your back). Also add fluticasone nasal spray to help with opening the ostia/openings for the sinuses and better drainage. Antihistamine such as cetirizine may be helpful as well. Doxycycline antibiotic for presumed infection of the sinuses. For your shoulder muscles, again the anti-inflammatories will be useful for that as well initially. Starting with dexamethasone 4 5 days and then changing to meloxicam NSAID twice daily with food for another 7 to 10 days. Will be consistent with the anti-inflammatories to help with your shoulders. Continue with your muscle relaxant baclofen. You can try lidocaine patch on the muscles that are sore daily to see if that helps with some of the spasming. Heat massage and physical therapy may be useful. Follow-up with your primary care regarding these. Add Tylenol 500 650 mg 4 times daily to help with pains or hydrocodone/acetaminophen if needed for worse pains. I am writing a work note for you to not do any lifting of crates or heavy lifting overhead. Light activity as tolerated. It may be appropriate to be off work for a day or 2. I sent your prescriptions to [facility] your preferred pharmacy. Follow-up with your primary care or orthopedic clinic if not improved well over the next several days to week. I am prescribing a short course of narcotic pain medication for you. These are potentially dangerous and addictive medications that should be used carefully. These medications may constipate you. Take an [id number] stool softener such as docusate twice daily with plenty of water while taking these medications. If you go 24 hours without a bowel movement, take [id number] MiraLAX, per package instructions. Do not drink or drive while taking these medications. If you received narcotic or sedating medications while in the emergency department do not drive for 24 hours. Store this medication in a safe, secure place and out of reach of children. It is a violation of federal law to give or sell this medication to another person or to use in a manner other than prescribed. The ED will not refill narcotic prescriptions, including prescriptions lost or stolen. You can dispose of unwanted medications at the [facility]'s office or at several pharmacies such as [facility]. Forms: PCP List, Activity restrictions Discharge Date/Time: 01/08/24 15:14
[2024-01-08] MEDS: DOXYCYCLINE 100 MG TABLET PO STA (14:49)
[2024-01-08] MEDS: dexAMETHasone 4 MG TABLET PO STA (14:49)
[2024-01-08] MEDS: IBUPROFEN 600 MG TABLET PO STA (14:49)
[2024-01-08] MEDS: HYDROcod/ACETAM 5/325 MG TABLET PO STA (14:49)
== END 2024-01-08 15:14 | disposition home or self-care (01) ==
LOC: ED 14:04
DX: S46.819A Strain of other muscles, fascia and tendons at shoulder and upper arm level, unspecified arm, initial encounter (principal); X50.0XXA Overexertion from strenuous movement or load, initial encounter; Y92.512 Supermarket, store or market as the place of occurrence of the external cause; Y99.0 Civilian activity done for income or pay; I10 Essential (primary) hypertension; J32.9 Chronic sinusitis, unspecified
CPT/HCPCS: 99282; 99283; A9270; J8540

== ENCOUNTER 2024-06-11 08:30 | Outpatient (CLI) | payer BC, MEDICAID ==
[2024-06-11 12:58] LABS: CALCIUM 9.3 mg/dL (8.5-10.3); CREATININE 0.7 mg/dL (0.6-1.3); POTASSIUM 3.3 mmol/L (3.5-4.5)
== END 2024-06-11 08:45 | disposition home or self-care (01) ==
LOC: LAB.N 08:30
PROVIDERS: ATTEND Physician Assistant
DX: E87.6 Hypokalemia (principal)
CPT/HCPCS: 36415; 80048; 81599